=== PATIENT | female | born 1965 | race Caucasian/White ===

== ENCOUNTER 2016-11-17 21:52 | Emergency (ER) | payer OTHER ==
[~2016-11-17] VITALS: Ht 160 cm; Wt 89.0 kg
[~2016-11-17 21:52] MED LIST: OXYC-57 PO; [UNRECOGNIZED DRUG - OTHER] OPB
[2016-11-17] MEDS ORDERED: ASPIRIN 81 MG CHEW PO STA (21:58)
[2016-11-17 22:02] VITALS: Ht 160 cm; Wt 89.0 kg
--- NOTE | 2016-11-17 22:24 | DIAGNOSTIC IMAGING REPORT ---
SINGLE VIEW CHEST CLINICAL HISTORY: Atypical chest pain. FINDINGS: An AP, portable, upright chest radiograph is compared to study dated 02/08/2013. The examination is degraded by portable technique, apical lordotic positioning, and patient rotation. The cardiomediastinal silhouette is unremarkable. The lungs and pleural spaces are clear. No pneumothorax is seen. The bony thorax is grossly intact. IMPRESSION: No active disease in the chest. Electronically signed by: Pavel Fuentes M.D. 11/17/2016 10:22 PM Dictated Date/Time: 11/17/2016 10:22 PM
[2016-11-17] MEDS ORDERED: NITROGLYCERIN OINT 2% 1GM PACKET EXT ONE (22:30)
--- NOTE | 2016-11-17 22:34 | EMERGENCY ROOM VISIT NOTE ---
History Report prepared by Mally: Caitlyn Bragg Under the Supervision of: Dr. Kelly Ray M.D. First contact with patient: 21:58 Chief Complaint: CHEST PAIN Stated Complaint: CHEST PAIN Nursing Triage Summary: patient to ED via ALS for chest pain, patient reports sternal chest pain with radiation "into the head" beginning within the last hour, worsened with exertion. 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 The patient's daughter translated for the patient. The patient states that the chest pain is currently a 5/10 in severity and that the nitroglycerin she received in route to the ED helped relieve some of the pain. The patient states that the pain woke her up from sleep. The patient states that along with the chest pain she has headache and neck pain. The patient states that she also has abdominal pain, back pain, nausea but denies any vomiting. The patient states that she has a tumor in her head from melanoma that she takes medication. She denies any history of heart problems or smoking. 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 A total of 10 systems reviewed and were otherwise negative. Past Medical & Surgical Medical Problems: (1) Diabetes Surgical Problems: (1) H/O: hysterectomy Family History Diabetes mellitus FH: glaucoma Hypertension Stroke Social History Smoking Status: Never Smoker Alcohol Use: none Drug Use: none Marital Status: Housing Status: lives with family Occupation Status: unemployed Current/Historical Medications No Active Prescriptions or Reported Meds Allergies Coded Allergies: No Known Allergies (Unverified , 11/17/16) Physical Exam Vital Signs Date Time Temp Pulse Resp B/P Pulse Ox O2 Delivery O2 Flow Rate FiO2 11/18/16 01:22 37.1 72 16 110/66 90 11/18/16 00:57 72 16 90 11/18/16 00:27 75 16 95 11/17/16 23:57 84 15 97 11/17/16 23:55 85 20 110/66 98 Room Air 11/17/16 23:47 110/66 11/17/16 23:27 88 17 95 11/17/16 23:22 85 16 95 11/17/16 22:52 87 18 93 11/17/16 22:22 91 21 97 11/17/16 22:20 150/89 11/17/16 22:07 91 11/17/16 22:02 37.1 101 20 150/89 95 Room Air 11/17/16 22:02 95 Room Air 11/17/16 21:59 150/89 Physical Exam Vital signs reviewed. General: Well-appearing female, in no significant distress. HEENT: No scleral icterus, PERRLA, neck supple. Atraumatic. Cardiovascular: Regular rate and rhythm, no extra sounds. Pulmonary: Clear to auscultation bilaterally, normal work of breathing. Abdomen: Obese, soft, nontender, nondistended, positive bowel sounds. Musculoskeletal: Atraumatic, no peripheral edema. Neurologic: Patient awake alert and oriented x 3, full strength in all 4 extremities. Cranial nerves 2 through 12 grossly intact. Skin: Warm, dry, no rash Medical Decision & Procedures ER Provider Diagnostic Interpretation: X-ray results as stated below per interpretation by me and the radiologist: SINGLE VIEW CHEST CLINICAL HISTORY: Atypical chest pain. FINDINGS: An AP, portable, upright chest radiograph is compared to study dated 02/08/2013. The examination is degraded by portable technique, apical lordotic positioning, and patient rotation. The cardiomediastinal silhouette is unremarkable. The lungs and pleural spaces are clear. No pneumothorax is seen. The bony thorax is grossly intact. IMPRESSION: No active disease in the chest. Electronically signed by: Pavel Fuentes M.D. 11/17/2016 10:22 PM Dictated Date/Time: 11/17/2016 10:22 PM Laboratory Results 11/17/16 21:45 Red Blood Count 4.20, Mean Corpuscular Volume 91.2, Mean Corpuscular Hemoglobin 30.0, Mean Corpuscular Hemoglobin Concent 32.9, Mean Platelet Volume 9.6, Neutrophils (%) (Auto) 54.9, Lymphocytes (%) (Auto) 35.2, Monocytes (%) (Auto) 7.5, Eosinophils (%) (Auto) 2.0, Basophils (%) (Auto) 0.3, Neutrophils # (Auto) 4.21, Lymphocytes # (Auto) 2.69, Monocytes # (Auto) 0.57, Eosinophils # (Auto) 0.15, Basophils # (Auto) 0.02 11/17/16 21:45 Test 11/17/16 21:45 11/17/16 23:40 White Blood Count 7.65 K/uL (4.8-10.8) Red Blood Count 4.20 M/uL (4.2-5.4) Hemoglobin 12.6 g/dL (12.0-16.0) Hematocrit 38.3 % (37-47) Mean Corpuscular Volume 91.2 fL (80-100) Mean Corpuscular Hemoglobin 30.0 pg (25-34) Mean Corpuscular Hemoglobin Concent 32.9 g/dl (32-36) Platelet Count 298 K/uL (130-400) Mean Platelet Volume 9.6 fL (7.4-10.4) Neutrophils (%) (Auto) 54.9 % Lymphocytes (%) (Auto) 35.2 % Monocytes (%) (Auto) 7.5 % Eosinophils (%) (Auto) 2.0 % Basophils (%) (Auto) 0.3 % Neutrophils # (Auto) 4.21 K/uL (1.4-6.5) Lymphocytes # (Auto) 2.69 K/uL (1.2-3.4) Monocytes # (Auto) 0.57 K/uL (0.11-0.59) Eosinophils # (Auto) 0.15 K/uL (0-0.5) Basophils # (Auto) 0.02 K/uL (0-0.2) RDW Standard Deviation 42.9 fL (36.4-46.3) RDW Coefficient of Variation 13.0 % (11.5-14.5) Immature Granulocyte % (Auto) 0.1 % Immature Granulocyte # (Auto) 0.01 K/uL (0.00-0.02) Anion Gap 11.0 mmol/L (3-11) Est Creatinine Clear Calc Drug Dose 103.6 ml/min Estimated GFR () 117.4 Estimated GFR (Non- 101.3 BUN/Creatinine Ratio 24.3 (10-20) Calcium Level 9.3 mg/dl (8.5-10.1) Total Bilirubin 0.2 mg/dl (0.2-1) Direct Bilirubin < 0.1 mg/dl (0-0.2) Aspartate Amino Transf (AST/SGOT) 18 U/L (15-37) Alanine Aminotransferase (ALT/SGPT) 27 U/L (12-78) Alkaline Phosphatase 130 U/L (45-117) Total Creatine Kinase 78 U/L (26-192) Creatine Kinase MB 1.0 ng/ml (0.5-3.6) Creatine Kinase MB Ratio 1.3 (0-3.0) Total Protein 7.2 gm/dl (6.4-8.2) Albumin 3.6 gm/dl (3.4-5.0) Bedside Troponin I 0.000 ng/ml (0-0.045) Laboratory results per my review. Medications Administered Medications (Trade) Dose Ordered Sig/Sissy Route Start Time Stop Time Status Last Admin Dose Admin Nitroglycerin (Nitroglycerin 2% Oint) 1 inch NOW ONCE EXT 11/17/16 22:30 11/17/16 22:31 DC 11/17/16 22:41 1 INCH ECG Indication: chest pain Rate (beats per minute): 96 Rhythm: normal sinus Findings: other (early repolarization, diffuse J joint) Comparison ECG Date: February 08, 2013 Change: no significant change ED Course 2156: Past medical records reviewed. The patient was evaluated in room B12B. A complete history and physical examination was performed. 2157: Ordered Aspirin Chew 324 mg PO. 2229: Ordered Nitroglycerin 1 inch EXT. 0017: Upon reevaluation, the patient appeared to have improvement of her symptoms. I discussed findings with her. She verbalized agreement of the treatment plan. The patient was discharged home. Medical Decision DDx: Acute coronary syndrome, pulmonary embolus, aortic dissection, musculoskeletal pain, pneumonia, pleural effusion, pneumothorax This pt was evaluated and appeared to be in no distress. IV access was obtained and lab work was drawn. Pt was placed on the cheesemaker. She was given ASA in route, NTG paste was applied. EKG reveals J point elevation, but no change from previous. Lab work reveals 2 negative troponins. CXR is clear. Pt was feeling better. I suspect this is non cardiac CP, however the pt is referred to her PCP this week for further management. She will return to the ED for worsening of symptoms or any medical concerns. Impression Primary Impression: Substernal chest pain Scribe Attestation The scribe's documentation has been prepared under my direction and personally reviewed by me in its entirety. I confirm that the note above accurately reflects all work, treatment, procedures, and medical decision making performed by me. Departure Information Dispostion Home / Self-Care Prescriptions No Active Prescriptions or Reported Meds Referrals Gladys Pearl DO (PCP) Forms HOME CARE DOCUMENTATION FORM, IMPORTANT VISIT INFORMATION Patient Instructions My [facility] Additional Instructions Diagnosis: Substernal chest pain Please follow-up with your primary care physician within the next several days for reevaluation. Pepcid 20 mg twice daily as needed for reflux/gastritis. This can be purchased [id number]. Return to the emergency department immediately for worsening of symptoms or any medical concerns.
[2016-11-17 22:36] LABS: BASO % 0.3 %; BASO ABS # 0.02 K/uL (0-0.2); COMPLETE YES; HEMATOCRIT 38.3 % (37-47); IG% 0.1 %; LYMPH % 35.2 %; LYMPH ABS # 2.69 K/uL (1.2-3.4); MEAN CELL VOLUME 91.2 fL (80-100); MEAN CORPUSCULAR HGB CONC 32.9 g/dl (32-36); MEAN PLATELET VOLUME 9.6 fL (7.4-10.4); MONO % 7.5 %; NEUT % 54.9 %; PLATELET COUNT 298 K/uL (130-400); WHITE BLOOD COUNT 7.65 K/uL (4.8-10.8)
[2016-11-17 23:02] LABS: ALT/SGPT 27 U/L (12-78); BLOOD UREA NITROGEN 17 mg/dl (7-18); BUN/CREATININE RATIO 24.3 (10-20); CALCIUM 9.3 mg/dl (8.5-10.1); CARBON DIOXIDE 25 mmol/L (21-32); CHLORIDE 108 mmol/L (98-107); CREATININE 0.68 mg/dl (0.60-1.20); GLUCOSE 113 mg/dl (70-99); SODIUM 144 mmol/L (136-145)
[2016-11-17 23:06] LABS: ALKALINE PHOSPHATASE 130 U/L (45-117); AST/SGOT 18 U/L (15-37); CKMB/CK RATIO 1.3 (0-3.0)
[2016-11-18 01:22] VITALS: BP 110/66; PULSE 72; TEMP 37.1; O2SAT 90
== END 2016-11-18 01:23 | disposition home or self-care (01) ==
LOC: EDBD 21:52 → C.EDB 21:53
DX: R07.2 Precordial pain (principal); E11.9 Type 2 diabetes mellitus without complications; Z83.3 Family history of diabetes mellitus; Z82.49 Family history of ischemic heart disease and other diseases of the circulatory system

== ENCOUNTER → 2017-07-02 | Outpatient (CLI) | payer OTHER ==
--- NOTE | 2017-07-03 06:18 | SPLIT NIGHT TECHNICIAN REPORT ---
[facility] Split Night Polysomnogram - Legal Service Specialist Report Study date: 07/02/2017 Referring Physician: Radha Antoine Name: MIKEY NOVAK Legal Service Specialist: DEYSI Dozier. Date of : 1965 Height: 52 years, Height 5' 2.2" Sex: Female Weight: 190 lbs Age: 52 BMI: Medications: 34.52 PANTOPRAZOLE 40 MG, PROPRANOLOL 80 MG, RIBOFLAVIN 400 MG, MELATONIN 5 MG, SUMATRIPTAN 25 MG, MAGNESIUM OXIDE 400 MG, ALBUTEROL, IBUPROFEN 400 MG, TRAMADOL 50 MG, ATORVASTATIN 10 MG, SULLINDAC 150 MG, NAPROXEN 550 MG, LIDOCAINE 5% OINT, TOBRAMYCIN 0.3% SOLN, TIMOLOL 0.25%, ACETAMINOPHEN 500 MG/5 ML Patient History 52 yr-old female here for a baseline/split study. She has a history of snoring, witnessed apneas, daytime sleepiness, and waking up with a gasping sensation. Her [place] scale is 12. The test was started on room air. ETCO2 testing is included in this study. Room 6 Parameters Monitored NPSG: E1-M2, E2-M1, Fp1-M2, Fp2-M1, F3-M2, F4-M2, F4-M1, C3-M2, C4-M2, C4-M1, O1-M2, O2-M2, O2-M1, T3-M2, T4-M1, P3-M2, P4-M1, CHIN1, CHIN2, HR, EKG, Legs, PFLOW, SNOR, FLOW, CFLOW, Tidal Volume, THOR, ABDO, SpO2, PLTH, CPRESS, ETCO2 Wave, ETCO2, pH SLEEP SUMMARY DATA DIAGNOSTIC TREATMENT Lights Out: 9:35:34 PM 12:40:04 AM Lights On: 12:27:04 AM 5:30:04 AM Total Recording Time (TRT): 171.5 min. 290.0 min. Total Sleep Time (TST): 127.5 min. 280.5 min. NREM Time: 100.5 min. 190.5 min. REM Time: 27.0 min. 90.0 min. Sleep Period Time (SPT): 147.5 min. 289.5 min. Sleep Efficiency (SE): 74 % 97 % Sleep Latency: 24.0 min. 0.5 min. Arousal Index: 49.4 5.8 PAP Treatment Levels: 4, 6, 8 * Optimal Pressure(s) SLEEP STAGING DATA DIAGNOSTIC TREATMENT Duration (min) TST % Duration (min) TST % Stage Wake: 44.0 min. -- 9.5 min. -- WASO: 20.0 min. -- 9.0 min. -- NREM: 100.5 min. 79 % 190.5 min. 68 % Stage N1: 25.5 min. 20 % 17.5 min. 6 % Stage N2: 65.5 min. 51 % 165.5 min. 59 % Stage N3: 9.5 min. 7 % 7.5 min. 3 % REM: 27.0 min. 21 % 90.0 min. 32 % POSITIONAL DATA Event Count Index Event Count Index Supine: 8 107 35 9.7 Supine NREM: 8 106.7 34 13.2 Supine REM: N/A N/A 1 1 Non-Supine: 182 88.3 9 7.6 Non-Supine NREM: 143 88.8 4 6.0 Non-Supine REM: 39 86.7 5 9.8 AROUSAL SUMMARY DATA: Event Count Index Event Count Index Apnea Arousals: 78 65.4 11 3.0 Hypopnea Arousals: 7 3.3 1 0.2 Snore Arousals: 4 1.9 1 0.2 PLM Arousals: 2 0.9 0 0.0 Non-Specific Arousals: 6 2.8 7 1.5 Total Arousals: 105 49.4 27 5.8 MYOCLONUS (PLM) Event Count Index Event Count Index PLM: 12 5.6 13 2.8 PLM AROUSAL: 2 0.9 0 0.0 PLM W/O AROUSAL 12 5.6 13 2.8 PLM W/RESP EVENT 2 0.0 0 0.0 MYOCLONUS (PLM) Event Count Index Event Count Index LM: 9 75.8 35 7.5 LM AROUSAL: 9 4.2 6 1.3 LM W/O AROUSAL LM W/RESP EVENT LM NON SPECIFIC 47 22.1 39 8.3 HEART RATE DATA DIAGNOSTIC TREATMENT Sleep (bpm): 77 76 REM (bpm): 82 92 NREM (bpm): 90 92 Tachycardia Count: 0 0 Tachycardia Duration: 0.00 0 Bradycardia Count: 0 0 Bradycardia Duration: 0.00 0 DIAGNOSTIC PORTION TREATMENT PORTION RESPIRATORY DATA Event Count Index Event Count Index AHI: -- 88.9 -- 9.2 RDI: -- 89.4 -- 9 Obstructive Apnea: 128 60.2 8 1.7 Central Apnea: 10 4.7 6 1.3 Mixed Apnea: 1 0.5 0 0.0 Hypopnea: 50 23.5 29 6.2 RERA: 1 0.5 1 0.2 Total Apneas: 139 65.4 14 3.0 RESPIRATORY DATA REM NREM SLEEP REM NREM SLEEP Supine Position: Obstructive Apneas: N/A 6 6 0 7 7 Central Apneas: N/A 0 0 0 6 6 Mixed Apneas: N/A 0 0 0 0 0 Hypopneas: N/A 2 2 1 20 21 RERA N/A 0 0 0 1 1 Total Supine Events: N/A 8 8 1 34 35 Supine AHI: N/A 106.7 107 1 13.2 9.7 Supine RDI: N/A 106.7 106.7 1.0 13.6 10.0 REM NREM SLEEP REM NREM SLEEP Non-Supine Position: Obstructive Apneas: 32 90 122 0 1 1 Central Apneas: 0 10 10 0 0 0 Mixed Apneas: 0 1 1 0 0 0 Hypopneas: 7 41 48 5 3 8 RERA 0 1 1 0 0 0 Total Supine Events: 39 143 182 5 4 9 Supine AHI: 86.7 88.8 88.3 9.8 6.0 7.6 Supine RDI: 86.7 89.4 88.8 9.8 6.0 7.6 OXYGEN DESTAURATION DATA: Event Count Index Event Count Index REM Desaturations: 33 73.3 9 6.0 NREM Desaturations: 150 89.6 48 15.1 SNORE DATA DIAGNOSTIC TREATMENT Snore Time: 17.9 12:40:34 AM Snore TST%: 10 3 Snore Arousal Count: 4 1 Snore Arousal Index: 1.9 0.2 Desaturation Event Summary: Minimum %SpO2 Event Count Mean/Min/Max Duration(sec.) Desaturation Index % Time In Bed > 90 260 21.1 / 6.0 / 59.0 44.8 75.6 86 - 90 20 21.8 / 8.0 / 58.3 15.7 16.6 81 - 85 1 52.5 / 52.5 / 52.5 3.3 3.9 76 - 80 0 N/A 0.0 1.9 71 - 75 0 N/A 0.0 0.9 66 - 70 0 N/A 0.0 0.7 61 - 65 0 N/A 0.0 0.2 56 - 60 0 N/A 0.0 0.0 51 - 55 0 N/A 0.0 0.0 < 50 0 N/A 0.0 0.0 OXYGEN SATURATION DATA DIAGNOSTIC TREATMENT SpO2 Mean Sleep: 88 % 92 % SpO2 Mean REM: 82 % 92 % SpO2 Mean NREM: 90 % 92 % SpO2 Minimum Sleep: 61 % 82 % SpO2 Minimum REM: 61 % 85 % SpO2 Minimum NREM: 71 % 82 % Time Below 90% (TST): 54.3 13.0 Time Below 88% (TST): 42.7 2.8 Total REM NREM Awake <50% 0.0 min. 0.0 min. 0.0 min. 0.0 min. 51 - 60% 0.0 min. 0.0 min. 0.0 min. 0.0 min. 61 - 70% 4.3 min. 4.0 min. 0.0 min. 0.3 min. 71 - 80% 13.2 min. 8.0 min. 4.9 min. 0.2 min. 81 - 90% 94.8 min. 15.6 min. 75.2 min. 4.0 min. 91 - 100% 348.4 min. 89.3 min. 210.2 min. 48.9 min. Average 91 90 91 94 Minimum SpO2 61 61 71 70 Desaturation Event Index 34.1 21.5 40.8 25.8 # Desat. Events below 89% 209 34 162 13 Time(%) with Saturation below 89% 12.3 4.2 7.5 0.5 Time(min.) with Saturation below 89% 56.5 19.3 34.8 2.4 Recording Legal Service Specialist Comments: Ms. Novak slept in the right and supine positions. A few PVCs were noted. No PLMs noted. No bruxism noted. Snoring was noted and scored as a 3 on a scale of 1 through 5. (0=no snoring, 5=snoring loud enough to be heard through a closed door or down the jaramillo way) At 12:39, she met specific Split-Night criteria during the diagnostic portion of this study. CPAP was initiated at +4 CMH2O and up-titrated to a evel of +8 CMH2O Cflex 2, which nearly eliminated all respiratory events and snoring. A Mirage FX Soft edge nasal mask size small from [employer] was used during titration She awoke to use the restroom one time during the night. Ms. Novak stated that she slept a little better than usual. The final report will be interpreted and signed by a sleep physician. The completed physician report will then be placed in the patient medical record. Therapy Event: Therapy (cm H20) 0 4 6 8 Total Time at Pressure (min.) 171.5 11.5 56.4 222.1 TST at Pressure (min.) 127.5 7.0 55.9 217.6 # Periods 1 1 1 1 Sleep Onset (min.) 24.0 0.5 0.0 0.0 REM Onset (min.) 104.5 N/A 31.0 0.0 Sleep Efficiency % 74 60 99 98 Wakefulness (%) 25.7 39.2 0.9 2.0 Wakefulness (min.) 44.0 4.5 0.5 4.5 NREM 1 (%) 14.9 60.8 0.9 4.5 NREM 1 (min.) 25.5 7.0 0.5 10.0 NREM 2 (%) 38.2 0.0 48.7 62.1 NREM 2 (min.) 65.5 0.0 27.5 138.0 NREM 3 (%) 5.5 0.0 4.4 2.3 NREM 3 (min.) 9.5 0.0 2.5 5.0 REM (%) 15.7 0.0 45.0 29.1 REM (min.) 27.0 0.0 25.4 64.6 # Arousals 105 12 1 14 Arousal Index 49.4 103.2 1.1 3.9 # Snore 551 17 90 298 Snore Index 259.3 146.3 96.5 82.2 AHI 88.9 111.8 23.6 2.2 AHI Supine 106.7 111.8 89.8 1.9 AHI Non-Supine 88.3 N/A 9.1 4.8 NREM AHI 89.6 111.8 33.4 2.7 REM AHI 86.7 N/A 11.8 0.9 RDI 89.4 111.8 24.7 2.2 # Obstructive 128 7 1 0 # Central Ap 10 6 0 0 # Mixed 1 0 0 0 # Hypopneas 50 0 21 8 RERAS 1 0 1 0 Total Respiratory Events 190 13 23 8 Time Below SpO2 89.00% (min.) 47.9 2.2 2.8 1.1 Mean NREM SpO2 (%) 90 91 92 92 Mean REM SpO2 (%) 82 N/A 91 92 Mean Sleep SpO2 (%) 88 91 91 92 Min NREM SpO2 (%) 71 82 86 87 Min REM SpO2 (%) 61 N/A 86 85 Position Supine (min.) 4.5 7.0 10.0 192.7 Position Non-supine (min.) 123.0 0.0 45.9 24.9 LM Index Sleep 81.4 51.6 6.4 9.9 LM Index NREM 80.0 51.6 7.9 10.2 LM Index REM 86.7 N/A 4.7 9.3 Mean Heart Rate (bpm) 77 70 76 76 Min Heart Rate (bpm) 59 64 66 63 CPAP REPORT Therapy Detail Time / Page # Comment CPAP 4 cm H2O Nasal Mask Flex Pressure Relief Humidifier on 12:39:32 AM / pg. 374 SHE HAS HAD OVER 2 HOURS AND OF SLEEP AND HER AHI IS ABOVE 15 (PER DOCTOR'S ORDER). CPAP 6 cm H2O Nasal Mask Flex Pressure Relief Humidifier on 12:51:32 AM / pg. 398 INCREASED FOR APNEAS CPAP 8 cm H2O Nasal Mask Flex Pressure Relief Humidifier on 1:47:59 AM / pg. 511 INCREASED FOR APNEAS AND HYPOPNEAS
--- NOTE | 2017-07-06 12:13 | POLYSOMNOGRAPH REPORT ---
CLINICAL DATA: 52-year-old female with BMI of 34.5 referred by Radha Antoine for a split night sleep study with a history of snoring, witnessed apneas, daytime sleepiness, and awakening with gasping sensation. Her [place] sleepiness score is 12/24. SLEEP ARCHITECTURE: For the diagnostic portion of the study, sleep period time was 147.5 minutes. Total sleep time was 127.5 minutes divided between 100.5 minutes of non-REM sleep and 27 minutes of REM sleep. Sleep onset latency was 24 minutes. Sleep efficiency was 74%. Sleep consisted of stage N1 20%, stage N2 51%, stage N3 7%, and REM 21%. For the treatment portion of the study, sleep period time was 289.5 minutes. Total sleep time was 280.5 minutes divided between 190.5 minutes of non-REM sleep and 90 minutes of REM sleep. Sleep latency was 0.5 minutes. Sleep efficiency was 97%. Sleep consisted of stage N1 6%, stage N2 59%, stage N3 3%, and REM 32%. AROUSAL DATA: Prior to treatment, 105 arousals were recorded for an index of 49.4 per hour. During treatment, 27 arousals were recorded for an index of 5.8 per hour. PLM DATA: Prior to treatment, 47 limb movements during sleep were noted for an index of 22.1 per hour. During treatment, 39 limb movements during sleep were noted for an index of 8.3 per hour. EKG: Heart rates ranged from 76-92 beats per minute. Occasional PVCs were noted. RESPIRATORY DATA: Prior to treatment, very severe sleep apnea was documented. The AHI was 89. There were 128 obstructive, 10 central, and 1 mixed apneic episode. There were 50 hypopneic episodes. The mean AHI during treatment was 9.2. There were 8 obstructive and 6 central apneic episodes and 29 hypopneic episodes during treatment. OXIMETRY DATA: Prior to treatment, severe nocturnal hypoxemia was seen. Oxygen rylie was 61% during REM. The mean saturation for the treatment was 92%. FAST FOOD SERVER'S COMMENTS AND TREATMENT SUMMARY: The patient slept in the right and supine positions. Snoring was moderate, rated 3 on a scale of 1 through 5. At 12:39 a.m., she met split night criteria. A Mirage FX soft edge nasal mask size small from [employer] was used. She was placed on CPAP and titrated up to her final pressure setting of 8 cm water pressure, C-Flex setting #2. At her final pressure setting, the patient slept for 217.6 minutes with an AHI of 2.2. IMPRESSION: Very severe sleep apnea/hypopnea with an AHI of 89 corrected with CPAP 8 cm of water pressure. C-Flex setting #2, Mirage FX soft edge nasal mask size small from [employer] with elimination of apnea and hypoxemia. RECOMMENDATIONS: The patient should be started on the above noted treatment regimen and seen back in followup within 90 days to document efficacy and compliance. PAM
== END | disposition home or self-care (01) ==
LOC: C.NEUR 21:00
PROVIDERS: ATTEND Nurse Practitioner Family
DX: G47.30 Sleep apnea, unspecified (principal)

== ENCOUNTER 2017-07-08 16:14 | Inpatient (IN) | payer OTHER ==
[~2017-07-08] VITALS: Ht 160 cm; Wt 81.7 kg
[2017-07-08] MEDS ORDERED: PANT40TA PO (16:55)
[2017-07-08] MEDS ORDERED: SUMA25TA12 PO (16:55)
[2017-07-08] MEDS ORDERED: INDSR/60 PO (16:55)
[2017-07-08] MEDS ORDERED: PROP80CA PO (16:55)
[2017-07-08] MEDS ORDERED: ATOR10TA82 PO (16:55)
[2017-07-08] MEDS ORDERED: ALBUT/IPRATROP 3MG/0.5MG NEB 3 ML VIAL INH STA (16:58)
[2017-07-08 17:30] LABS: BASO % 0.4 %; BASO ABS # 0.02 K/uL (0-0.2); COMPLETE YES; EOS % 2.7 %; HEMATOCRIT 39.7 % (37-47); IG% 0.2 %; LYMPH % 20.1 %; MEAN CELL VOLUME 91.5 fL (80-100); MEAN CORPUSCULAR HEMOGLOBIN 29.7 pg (25-34); MEAN CORPUSCULAR HGB CONC 32.5 g/dl (32-36); MEAN PLATELET VOLUME 9.5 fL (7.4-10.4); MONO % 7.8 %; NEUT % 68.8 %; PLATELET COUNT 259 K/uL (130-400); RED BLOOD COUNT 4.34 M/uL (4.2-5.4); WHITE BLOOD COUNT 5.48 K/uL (4.8-10.8)
--- NOTE | 2017-07-08 17:30 | EMERGENCY ROOM VISIT NOTE ---
History First contact with patient: 16:23 Chief Complaint: COUGH Stated Complaint: CHEST PAIN/COUGH/FEVER Nursing Triage Summary: c/o cough, upper chest pain and fever since yesterday. difficulty taking a deep breath. Naprosyn last night. denies any meds for pain today History of Present Illness The patient is a 52 year old female who presents to the Emergency Room with complaints of cough, chest discomfort and shortness of breath which began yesterday. The patient reports she has had a dry cough, pain in her upper chest described as a tightness, and difficulty taking a deep breath beginning yesterday evening. She took Naprosyn without relief. She reports she recently flew home from [place]. 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 She has been using her albuterol inhaler without relief. She is not a smoker. She denies use of control pills or hormone replacement. She does report she had some leg swelling while in [place]. She denies any history of PE or DVT. She does report a history of asthma. She denies any history of cardiac disease. Review of Systems A complete 10 point review of systems was reviewed with the patient with pertinent positives and negatives as per history of present illness. All else were negative. Past Medical/Surgical History Medical Problems: (1) Diabetes (2) Dyslipidemia (3) GERD (gastroesophageal reflux disease) (4) Meningioma (5) Migraine headache Surgical Problems: (1) Status post hysterectomy (2) Status post temporal artery biopsy Family History Diabetes mellitus FH: glaucoma Hypertension Stroke Social History Smoking Status: Never Smoker Alcohol Use: none Drug Use: none Marital Status: Housing Status: lives with family Occupation Status: unemployed Current/Historical Medications Scheduled Atorvastatin (Lipitor), 10 MG PO DAILY Pantoprazole (Protonix), 40 MG PO DAILY Propranolol Hcl (Propranolol Hcl Er), 80 MG PO DAILY Scheduled PRN Sumatriptan Succinate (Imitrex), 50 MG PO UD PRN for Migraine Physical Exam Vital Signs Date Time Temp Pulse Resp B/P (MAP) Pulse Ox O2 Delivery O2 Flow Rate FiO2 07/08/17 20:47 84 20 133/72 95 Room Air 07/08/17 19:26 80 20 129/68 95 Room Air 07/08/17 16:23 97 Room Air 07/08/17 16:19 37.0 75 20 124/82 97 Room Air Physical Exam VITALS: Vitals are noted on the nurse's note and reviewed by myself. Vital signs stable. GENERAL: This is a 52-year-old female, in no acute distress, nondiaphoretic, well-developed well-nourished. SKIN: The skin was without rashes. EARS: External auditory canals clear, tympanic membranes pearly dawkins without erythema or effusion bilaterally. EYES: Pupils equal round and reactive to light and accommodation. NOSE: Patent, turbinates without inflammation or discharge. MOUTH: Mucous membranes moist. Tonsils are not enlarged. Pharynx without erythema or exudate. NECK: Supple without nuchal rigidity. No lymphadenopathy. HEART: Regular rate and rhythm without murmurs gallops or rubs. LUNGS: Mild expiratory wheezing. Lungs otherwise clear. No retractions or accessory muscle use. NEURO: Patient was alert and oriented to person place and time. Medical Decision & Procedures ER Provider Diagnostic Interpretation: CHEST 2 VIEWS ROUTINE FINDINGS: Cardiomediastinal silhouette normal. Lungs and pleural spaces clear. Osseous structures normal. Upper abdomen normal. IMPRESSION: 1. No acute cardiopulmonary disease. (CHEST FOR PE) ANGIO WITH IMPRESSION: 1. A single filling defect is evident in a segmental artery to the right upper lobe, which is convincing for a pulmonary embolus. However, no additional emboli are evident. This is a very limited embolus burden. Short-term follow-up CTA could be considered. 2. Prominent mediastinal lymph nodes which are borderline pathologically enlarged. These may be reactive. Follow-up if clinically indicated. Laboratory Results 07/08/17 17:15 Red Blood Count 4.34, Mean Corpuscular Volume 91.5, Mean Corpuscular Hemoglobin 29.7, Mean Corpuscular Hemoglobin Concent 32.5, Mean Platelet Volume 9.5, Neutrophils (%) (Auto) 68.8, Lymphocytes (%) (Auto) 20.1, Monocytes (%) (Auto) 7.8, Eosinophils (%) (Auto) 2.7, Basophils (%) (Auto) 0.4, Neutrophils # (Auto) 3.77, Lymphocytes # (Auto) 1.10, Monocytes # (Auto) 0.43, Eosinophils # (Auto) 0.15, Basophils # (Auto) 0.02 07/08/17 17:15 Test 07/08/17 17:15 07/08/17 17:25 White Blood Count 5.48 K/uL (4.8-10.8) Red Blood Count 4.34 M/uL (4.2-5.4) Hemoglobin 12.9 g/dL (12.0-16.0) Hematocrit 39.7 % (37-47) Mean Corpuscular Volume 91.5 fL (80-100) Mean Corpuscular Hemoglobin 29.7 pg (25-34) Mean Corpuscular Hemoglobin Concent 32.5 g/dl (32-36) Platelet Count 259 K/uL (130-400) Mean Platelet Volume 9.5 fL (7.4-10.4) Neutrophils (%) (Auto) 68.8 % Lymphocytes (%) (Auto) 20.1 % Monocytes (%) (Auto) 7.8 % Eosinophils (%) (Auto) 2.7 % Basophils (%) (Auto) 0.4 % Neutrophils # (Auto) 3.77 K/uL (1.4-6.5) Lymphocytes # (Auto) 1.10 K/uL (1.2-3.4) Monocytes # (Auto) 0.43 K/uL (0.11-0.59) Eosinophils # (Auto) 0.15 K/uL (0-0.5) Basophils # (Auto) 0.02 K/uL (0-0.2) RDW Standard Deviation 44.3 fL (36.4-46.3) RDW Coefficient of Variation 13.2 % (11.5-14.5) Immature Granulocyte % (Auto) 0.2 % Immature Granulocyte # (Auto) 0.01 K/uL (0.00-0.02) D-Dimer 540 ug/L FEU (0-500) Anion Gap 6.0 mmol/L (3-11) Est Creatinine Clear Calc Drug Dose 79.1 ml/min Estimated GFR () 90.0 Estimated GFR (Non- 77.7 BUN/Creatinine Ratio 13.9 (10-20) Calcium Level 9.0 mg/dl (8.5-10.1) Total Bilirubin 0.2 mg/dl (0.2-1) Aspartate Amino Transf (AST/SGOT) 20 U/L (15-37) Alanine Aminotransferase (ALT/SGPT) 28 U/L (12-78) Alkaline Phosphatase 153 U/L (45-117) Troponin I < 0.015 ng/ml (0-0.045) Total Protein 7.7 gm/dl (6.4-8.2) Albumin 3.8 gm/dl (3.4-5.0) Globulin 3.9 gm/dl (2.5-4.0) Albumin/Globulin Ratio 1.0 (0.9-2) Influenza Type A Antigen Neg for Influ A (NEG) Influenza Type B Antigen Neg for Influ B (NEG) Medications Administered Medications (Trade) Dose Ordered Sig/Sissy Route Start Time Stop Time Status Last Admin Dose Admin Albuterol/ Ipratropium (Duoneb) 3 ml NOW STAT INH 07/08/17 16:58 07/08/17 17:00 DC 07/08/17 17:24 3 ML Methylprednisolone Sodium Succinate (Solu-Medrol IV) 125 mg NOW STAT IV 07/08/17 18:36 07/08/17 18:38 DC 07/08/17 18:54 125 MG ED Course The patient was evaluated as above. Labs were drawn and IV access was obtained. Patient was medicated with a DuoNeb treatment. Chest x-ray was performed and read by radiology as above. Patient was reevaluated and findings were discussed. Solu-Medrol was ordered. CTA of the chest was ordered. Case was discussed with the [facility] hospitalist, Dr. Francisco. They agreed to evaluate the patient for admission. Medical Decision Differential diagnosis includes upper respiratory infection, pneumonia, pulmonary embolism, pleural effusion, asthma exacerbation, COPD, among others. The patient is a 52-year-old female who presents today complaining of chest tightness and difficulty breathing. Patient did have a recent flight from [place]. Labs revealed no leukocytosis or concerning electrolyte abnormalities. Troponin was not elevated. Influenza testing was negative. D- dimer was found to be mildly elevated. CT chest did show a filling defect consistent with pulmonary embolism. Patient did have an inciting event of the recent flight. [facility] the [facility] for [facility]. Medication Reconcilliation Current Medication List: was personally reviewed by [place] Blood Pressure Screening Patient's blood pressure: Normal blood pressure Impression Primary Impression: Pulmonary embolism Departure Information Referrals Patrizia Lewis PA-C (PCP) Patient Instructions My [facility] Problem Qualifiers Primary Impression: Pulmonary embolism Pulmonary embolism type: other Chronicity: acute Acute cor pulmonale presence: without acute cor pulmonale Qualified Codes: I26.99 - Other pulmonary embolism without acute cor pulmonale
[2017-07-08 17:46] LABS: ALT/SGPT 28 U/L (12-78); BLOOD UREA NITROGEN 12 mg/dl (7-18); BUN/CREATININE RATIO 13.9 (10-20); CARBON DIOXIDE 28 mmol/L (21-32); CHLORIDE 106 mmol/L (98-107); CREATININE 0.86 mg/dl (0.60-1.20); GLUCOSE 94 mg/dl (70-99); POTASSIUM 3.7 mmol/L (3.5-5.1); SODIUM 140 mmol/L (136-145)
[2017-07-08 17:51] LABS: ALKALINE PHOSPHATASE 153 U/L (45-117); AST/SGOT 20 U/L (15-37)
--- NOTE | 2017-07-08 17:56 | DIAGNOSTIC IMAGING REPORT ---
CHEST 2 VIEWS ROUTINE CLINICAL HISTORY: 52 years-old Female presenting with cough, chest discomfort. TECHNIQUE: PA and lateral views of the chest were obtained. COMPARISON: 11/17/2016. FINDINGS: Cardiomediastinal silhouette normal. Lungs and pleural spaces clear. Osseous structures normal. Upper abdomen normal. IMPRESSION: 1. No acute cardiopulmonary disease. Electronically signed by: Jose C Chavez M.D. 07/08/2017 5:55 PM Dictated Date/Time: 07/08/2017 5:54 PM
[2017-07-08] MEDS ORDERED: METHYLPREDNISOLONE 125 MG VIAL IV STA (18:36)
[2017-07-08] MEDS ORDERED: HYDROCODONE/HOMATROPINE SYRUP 5MG/1.5MG 5ML UDP PO STA (18:36)
[2017-07-08] MEDS ORDERED: OPTIRAY 320 IV PRN (18:45)
--- NOTE | 2017-07-08 19:20 | DIAGNOSTIC IMAGING REPORT ---
(CHEST FOR PE) ANGIO WITH CLINICAL HISTORY: 52 years-old Female presenting with ^chest pain, sob, elevated dimer. TECHNIQUE: Multidetector CT angiography of the chest was performed after administration of intravenous contrast. 3-D volumetric and/or maximum intensity projection (MIP) images were subsequently reconstructed for review. IV contrast: 83 mL of Optiray 320. A dose lowering technique was used consistent with the principles of ALARA (as low as reasonably achievable). COMPARISON: Chest x-ray performed earlier the same day. CT DOSE (mGy.cm): The estimated cumulative dose is 430.52 mGy.cm. FINDINGS: Manager Mining topogram: Unremarkable. Pulmonary vasculature: The study is adequate for assessment of the pulmonary vascular tree. A single filling defect is evident in a segmental artery to the right upper lobe. This is not felt to be artifactual given the opacification of the segmental branch both proximal and distal to the filling defect. However, no additional filling defects are evident. Main pulmonary artery is not enlarged. No flattening of the interventricular septum. No intracardiac intracardiac filling defect. No reflux of contrast into the hepatic veins. Remaining chest: On soft tissue windows, normal thyroid and thoracic inlet. Prominent mediastinal lymph nodes measuring up to 10 mm in the short axis in the paratracheal and subcarinal regions. Smaller prominent bilateral hilar lymph nodes also noted. Normal aorta. Normal heart size. No pericardial or pleural effusion. Indeterminate subcentimeter hypodensity in the anterior medial left hepatic lobe, possibly hepatic cyst or or hemangioma. On lung windows, minimal dependent changes likely atelectasis. Airways patent. On bone windows, normal osseous structures. IMPRESSION: 1. A single filling defect is evident in a segmental artery to the right upper lobe, which is convincing for a pulmonary embolus. However, no additional emboli are evident. This is a very limited embolus burden. Short-term follow-up CTA could be considered. 2. Prominent mediastinal lymph nodes which are borderline pathologically enlarged. These may be reactive. Follow-up if clinically indicated. Electronically signed by: Jose C Chavez M.D. 07/08/2017 7:19 PM Dictated Date/Time: 07/08/2017 7:12 PM
--- NOTE | 2017-07-08 20:52 | History and Physical ---
History & Physical Date & Time of Service: Jul 08, 2017 at 20:52 . Chief Complaint: chest pain, shortness of breath . Primary Care Physician: Patrizia Lewis PA-C . History of Present Illness Source: patient, clinic records, hospital records, other (History obtained with assistance of translation service.) 52 YO female followed by Patrizia Lewis PA-C. History of GERD, dyslipidemia, and other problems noted below. Recently traveled from [place] by air. Yesterday developed midsternal chest pressure, worse with coughing or deep inspiration. Chest pain does not radiate. Feels SOB. Nonproductive cough; no hemoptysis. Experiencing sweats and possible low grade temp. Has mild pain in bilateral lower extremities. No history of cardiac disease. No history of thromboembolic disease. . Past Medical/Surgical History Chronic and Resolved Medical Problems: (1) Dyslipidemia Status: Chronic (2) GERD (gastroesophageal reflux disease) Status: Chronic (3) Meningioma Status: Chronic (4) Migraine headache Status: Chronic Surgical Problems: (1) Status post hysterectomy Status: Chronic (2) Status post temporal artery biopsy Permanent Comment: 01/11/16 negative for arteritis Status: Chronic . Family History Diabetes mellitus FH: glaucoma Hypertension Stroke Social History Smoking Status: Never Smoker Alcohol Use: none Drug Use: none Marital Status: Occupational Status: unemployed Allergies Coded Allergies: No Known Allergies (Unverified , 07/08/17) Home Medications Scheduled Atorvastatin (Lipitor), 10 MG PO DAILY Pantoprazole (Protonix), 40 MG PO DAILY Propranolol Hcl (Propranolol Hcl Er), 80 MG PO DAILY Scheduled PRN Sumatriptan Succinate (Imitrex), 50 MG PO UD PRN for Migraine Review of Systems Constitutional: + sweats, + problem reported (possible low grade temp) Eyes: + eye pain (right eye) ENT: No nasal symptoms Respiratory: + problem reported (per HPI) Cardiovascular: + problem reported (per HPI) Abdomen: + problem reported (GERD), No nausea, No vomiting, No diarrhea, No GI bleeding Genitourinary - Female: No dysuria, No hematuria Neurologic: + problem reported (migraine headaches) Endocrine: No excessive thirst, No excessive urination Hematologic / Lymphatic: No abnormal bleeding/bruising Integumentary: No rash Physical Exam Vital Signs Date Time Temp Pulse Resp B/P (MAP) Pulse Ox O2 Delivery O2 Flow Rate FiO2 12/20/17 19:26 80 20 129/68 95 Room Air 07/08/17 16:23 97 Room Air 07/08/17 16:19 37.0 75 20 124/82 97 Room Air General Appearance: WD/WN, + mild distress Head: normocephalic, atraumatic Eyes: normal inspection, PERRL, EOMI, sclerae normal ENT: normal ENT inspection, hearing grossly normal, pharynx normal Neck: supple, no adenopathy, thyroid normal, trachea midline Respiratory/Chest: no respiratory distress, no accessory muscle use, + pertinent finding (mild wheezing, occasional cough) Cardiovascular: regular rate, rhythm, no edema, no gallop, no JVD, no murmur Abdomen/GI: normal bowel sounds, non tender, soft, no organomegaly, no pulsatile mass Extremities/Musculoskelatal: normal inspection, normal capillary refill, no pedal edema, + pertinent finding (mild calf tenderness) Neurologic/Psych: vp integrity II-XII nml as tested (PERRL, EOMI, no facial palsy, no dysarthria), no motor/sensory deficits (grossly intact), alert, oriented x 3 Skin: normal color, no rash, + diaphoresis Lymphatic: no adenopathy (cervical) Diagnostics Laboratory Results Results Past 24 Hours Test 07/08/17 17:15 07/08/17 17:25 Range/Units White Blood Count 5.48 4.8-10.8 K/uL Red Blood Count 4.34 4.2-5.4 M/uL Hemoglobin 12.9 12.0-16.0 g/dL Hematocrit 39.7 37-47 % Mean Corpuscular Volume 91.5 80-100 fL Mean Corpuscular Hemoglobin 29.7 25-34 pg Mean Corpuscular Hemoglobin Concent 32.5 32-36 g/dl Platelet Count 259 130-400 K/uL Mean Platelet Volume 9.5 7.4-10.4 fL Neutrophils (%) (Auto) 68.8 % Lymphocytes (%) (Auto) 20.1 % Monocytes (%) (Auto) 7.8 % Eosinophils (%) (Auto) 2.7 % Basophils (%) (Auto) 0.4 % Neutrophils # (Auto) 3.77 1.4-6.5 K/uL Lymphocytes # (Auto) 1.10 1.2-3.4 K/uL Monocytes # (Auto) 0.43 0.11-0.59 K/uL Eosinophils # (Auto) 0.15 0-0.5 K/uL Basophils # (Auto) 0.02 0-0.2 K/uL RDW Standard Deviation 44.3 36.4-46.3 fL RDW Coefficient of Variation 13.2 11.5-14.5 % Immature Granulocyte % (Auto) 0.2 % Immature Granulocyte # (Auto) 0.01 0.00-0.02 K/uL D-Dimer 540 0-500 ug/L FEU Sodium Level 140 136-145 mmol/L Potassium Level 3.7 3.5-5.1 mmol/L Chloride Level 106 98-107 mmol/L Carbon Dioxide Level 28 21-32 mmol/L Anion Gap 6.0 3-11 mmol/L Blood Urea Nitrogen 12 7-18 mg/dl Creatinine 0.86 0.60-1.20 mg/dl Est Creatinine Clear Calc Drug Dose 79.1 ml/min Estimated GFR () 90.0 Estimated GFR (Non- 77.7 BUN/Creatinine Ratio 13.9 10-20 Random Glucose 94 70-99 mg/dl Calcium Level 9.0 8.5-10.1 mg/dl Total Bilirubin 0.2 0.2-1 mg/dl Aspartate Amino Transf (AST/SGOT) 20 15-37 U/L Alanine Aminotransferase (ALT/SGPT) 28 12-78 U/L Alkaline Phosphatase 153 45-117 U/L Troponin I < 0.015 0-0.045 ng/ml Total Protein 7.7 6.4-8.2 gm/dl Albumin 3.8 3.4-5.0 gm/dl Globulin 3.9 2.5-4.0 gm/dl Albumin/Globulin Ratio 1.0 0.9-2 Influenza Type A Antigen Neg for Influ A NEG Influenza Type B Antigen Neg for Influ B NEG Diagnostic Radiology CHEST 2 VIEWS ROUTINE FINDINGS: Cardiomediastinal silhouette normal. Lungs and pleural spaces clear. Osseous structures normal. Upper abdomen normal. IMPRESSION: 1. No acute cardiopulmonary disease. Electronically signed by: Jose C Chavez M.D. 07/08/2017 5:55 PM Dictated Date/Time: 07/08/2017 5:54 PM (CHEST FOR PE) ANGIO WITH FINDINGS: Senior Environmental Practice Leader topogram: Unremarkable. Pulmonary vasculature: The study is adequate for assessment of the pulmonary vascular tree. A single filling defect is evident in a segmental artery to the right upper lobe. This is not felt to be artifactual given the opacification of the segmental branch both proximal and distal to the filling defect. However, no additional filling defects are evident. Main pulmonary artery is not enlarged. No flattening of the interventricular septum. No intracardiac intracardiac filling defect. No reflux of contrast into the hepatic veins. Remaining chest: On soft tissue windows, normal thyroid and thoracic inlet. Prominent mediastinal lymph nodes measuring up to 10 mm in the short axis in the paratracheal and subcarinal regions. Smaller prominent bilateral hilar lymph nodes also noted. Normal aorta. Normal heart size. No pericardial or pleural effusion. Indeterminate subcentimeter hypodensity in the anterior medial left hepatic lobe, possibly hepatic cyst or or hemangioma. On lung windows, minimal dependent changes likely atelectasis. Airways patent. On bone windows, normal osseous structures. IMPRESSION: 1. A single filling defect is evident in a segmental artery to the right upper lobe, which is convincing for a pulmonary embolus. However, no additional emboli are evident. This is a very limited embolus burden. Short-term follow-up CTA could be considered. 2. Prominent mediastinal lymph nodes which are borderline pathologically enlarged. These may be reactive. Follow-up if clinically indicated. Electronically signed by: Jose C Chavez M.D. 07/08/2017 7:19 PM Dictated Date/Time: 07/08/2017 7:12 PM VENOUS DOPPLER LWR EXT BILAT FINDINGS: Right: Common femoral vein: Patent. Greater saphenous vein: Patent. Deep femoral vein: Patent. Femoral vein: Patent. Popliteal vein: Patent. Calf veins: Patent. Left: Common femoral vein: Patent. Greater saphenous vein: Patent. Deep femoral vein: Patent. Femoral vein: Patent. Popliteal vein: Patent. Calf veins: Patent. Other: None. IMPRESSION: No evidence of deep venous thrombosis. Electronically signed by: Jose C Chavez M.D. 07/08/2017 9:26 PM Dictated Date/Time: 07/08/2017 9:25 PM . EKG EKG performed at 17:07 reviewed and demonstrated NSR at 90 / minute, J-point elevation inferior and lateral leads, no acute changes. . Impression Assessment and Plan PULMONARY EMBOLISM (present on admission) Presented to ED with pleuritic chest pain and SOB. D-dimer elevated. CTA chest demonstrates segmental pulmonary embolism right upper lobe. Venous duplex lower extremities negative for DVT. Probable provoked VTE due to recent travel, although symptoms started more than 1 week after returning home. Oxygenating well. Hemodynamically stable. SQ enoxaparin initiated in ED and will be continued pending decision regarding oral therapy (warfarin vs DOAC). Routine cancer screening recommendations should be followed. Tentative duration of anticoagulation 3 months. Consider outpatient Hematology consultation regarding ferry terminal supervisor recommendations. DYSLIPIDEMIA Continue atorvastatin. MIGRAINE HEADACHES Continue propranolol and sumatriptan. VTE PROPHYLAXIS Receiving SQ enoxaparin for acute PE. RESUSCITATION STATUS Full code. DISPOSITION Admit to Telemetry Unit. Expected discharge to home. Medical follow-up with Patrizia Lewis PA-C. . VTE Prophylaxis VTE Risk Assessment Done? Y/N: Yes Risk Level: High Given or contraindicated: Enoxaparin (Lovenox)SQ
[2017-07-08] MEDS ORDERED: ENOXAPARIN 100 MG/1ML SYR SQ STA (21:10)
--- NOTE | 2017-07-08 21:27 | DIAGNOSTIC IMAGING REPORT ---
VENOUS DOPPLER LWR EXT BILA CLINICAL HISTORY: 52 years-old Female presenting with PE, eval for DVT. TECHNIQUE: Real-time grayscale and color and spectral Doppler ultrasound imaging of the veins of the bilateral lower extremities was performed. Compression and augmentation were also utilized. COMPARISON: None. FINDINGS: Right: Common femoral vein: Patent. Greater saphenous vein: Patent. Deep femoral vein: Patent. Femoral vein: Patent. Popliteal vein: Patent. Calf veins: Patent. Left: Common femoral vein: Patent. Greater saphenous vein: Patent. Deep femoral vein: Patent. Femoral vein: Patent. Popliteal vein: Patent. Calf veins: Patent. Other: None. IMPRESSION: No evidence of deep venous thrombosis. Electronically signed by: Jose C Chavez M.D. 07/08/2017 9:26 PM Dictated Date/Time: 07/08/2017 9:25 PM
[2017-07-08] MEDS: ACETAMINOPHEN 325 MG TAB PO PRN (22:00)
[2017-07-08] MEDS ORDERED: SUMATRIPTAN SUCCINATE 50 MG TAB PO PRN (22:15)
[2017-07-08] MEDS ORDERED: TRAMADOL HCL 50 MG TAB PO PRN (22:15)
[2017-07-08] MEDS ORDERED: LORAZEPAM 0.5 MG TAB PO PRN (22:15)
[2017-07-08 23:00] VITALS: BP 131/74; PULSE 87; TEMP 37.1; O2SAT 97; Ht 160 cm; Wt 81.7 kg
[2017-07-08] MEDS: OXYCODONE HCL IR 5 MG TAB (IMMEDIATE RELEASE) PO PRN (23:14)
[2017-07-09] VITALS (7 sets, daily range): BP systolic 110–135; BP diastolic 57–72; PULSE 66–82; TEMP 36.7–37.1; O2SAT 93–99
--- NOTE | 2017-07-09 02:54 | EMERGENCY ROOM VISIT NOTE ---
ED Visit Note First contact with patient: 16:23 HPI: [id number] here with cough, congestion sob. Recent flight from [place]. Plan: D-dimer +. CT chest with positive segmental PE. BLE duplex negative. Admit. Justus I reviewed the patient's past medical history, medications, and visit nursing notes. I discussed the case with the physician office services assistant and agree with the findings and plan as documented in the physician assistants note.
--- NOTE | 2017-07-09 05:24 | Clinical Documentation Query ---
CLINICAL DOCUMENTATION QUERY 52 year old female who present with symptoms 2/2 PE. In your clinical opinion is this patient being managed for: ( ) Asthma exacerbation treated and resolved in ED ( ) Not Agree ( ) Other explanation of clinical findings (Please Explain) ( ) Unable to determine (Please Define) ( ) Need to Discuss The medical record reflects the following clinical findings, treatment, and risk factors. Clinical Indicators: PE, Mild expiratory wheezing per ED physical exam Treatment: IV Solumedrol, Duoneb, Risk Factors: Hx of asthma, PE, Please clarify and document your clinical opinion in the progress notes and discharge summary. Terms such as "probable", "suspected", "likely", "questionable", "possible", or "still to be ruled out" are acceptable. IF IN AGREEMENT, YOU MUST DOCUMENT ABOVE DIAGNOSTIC STATEMENT IN DAILY PROGRESS NOTES AND DISCHARGE SUMMARY. This document is not part of the patient's record. Thank You, Og Berg, ANDREE [phone]
--- NOTE | 2017-07-09 05:25 | Clinical Documentation Query ---
CLINICAL DOCUMENTATION QUERY 52 year old female who present with symptoms 2/2 PE. In your clinical opinion is this patient being managed for: ( ) Asthma exacerbation treated and resolved in ED ( ) Not Agree ( x ) Other explanation of clinical findings (Please Explain) INITIALLY TREATED FOR POSSIBLE ASTHMA EXACERBATION, BUT FOUND TO HAVE PULMONARY EMBOLISM ( ) Unable to determine (Please Define) ( ) Need to Discuss The medical record reflects the following clinical findings, treatment, and risk factors. Clinical Indicators: PE, Mild expiratory wheezing per ED physical exam Treatment: IV Solumedrol, Duoneb, Risk Factors: Hx of asthma, PE, Please clarify and document your clinical opinion in the progress notes and discharge summary. Terms such as "probable", "suspected", "likely", "questionable", "possible", or "still to be ruled out" are acceptable. IF IN AGREEMENT, YOU MUST DOCUMENT ABOVE DIAGNOSTIC STATEMENT IN DAILY PROGRESS NOTES AND DISCHARGE SUMMARY. This document is not part of the patient's record. Thank You, Og Berg, RN [phone]
[2017-07-09 07:01] LABS: CREATININE 0.77 mg/dl (0.60-1.20)
[2017-07-09] MEDS: ATORVASTATIN 10 MG TAB PO SCH (07:54)
[2017-07-09] MEDS: OXYCODONE HCL IR 5 MG TAB (IMMEDIATE RELEASE) PO PRN ×2 (07:54→16:26)
[2017-07-09] MEDS: PROPRANOLOL HCL 80 MG LA CAP PO SCH (07:55)
[2017-07-09] MEDS: PANTOprazole SOD 40 MG TAB PO SCH (07:55)
[2017-07-09] MEDS: ENOXAPARIN 80 MG/0.8 ML SYR SQ SCH ×2 (10:41→21:34)
[2017-07-09] MEDS ORDERED: GUAIFENESIN/CODEINE 100MG/10MG 5ML UDC ONE (14:05)
[2017-07-09] MEDS ORDERED: WARFARIN SOD 10 MG TAB PO STA (15:55)
--- NOTE | 2017-07-09 17:05 | Progress Note ---
Internal Med Progress Note Date of Service: Jul 09, 2017. 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 not in distress ENT-Normal hearing Neck-no neck masses Lungs-Cta b/l no wheezing or crackles Heart-S1 and S2 heard regular No murmurs Abdomen-Soft Bowel sounds present Non tender No distension Extremities-No edema No erythema Neuro-alert and awake moves extremities Lab data as noted below. ASSESSMENT & PLAN: PULMONARY EMBOLISM (present on admission) Presented with pleuritic chest pain and SOB. D-dimer elevated. CTA chest shows segmental pulmonary embolism right upper lobe. Lower extremities Doppler negative for DVT. Probable provoked VTE due to recent travel. Oxygenating well. Hemodynamically stable. on Lovenox sq patient decided to go with Coumadin Routine cancer screening recommendations should be followed with pcp/heme/onco. Minimum of 3months of anticoagulation intermediate frame tender Coumadin as per pcp/heme/onco based on further studies. DYSLIPIDEMIA On atorvastatin. MIGRAINE HEADACHES On propranolol and sumatriptan. VTE PROPHYLAXIS On SQ enoxaparin for acute PE. RESUSCITATION STATUS Full code as per h and p DISPOSITION transferred to medical floor expect to d/c home and f/u with pcp Vital Signs: Date Time Temp Pulse Resp B/P (MAP) Pulse Ox O2 Delivery O2 Flow Rate FiO2 07/09/17 15:32 99 Nasal Cannula 1.0 07/09/17 15:10 37.1 73 18 128/72 (90) 99 Nasal Cannula 1.0 07/09/17 12:18 36.8 66 18 114/69 (84) 98 Room Air 07/09/17 12:00 Nasal Cannula 2.0 07/09/17 11:56 36.8 72 18 95 07/09/17 11:55 36.8 72 18 118/67 (84) 95 Room Air 07/09/17 08:17 36.8 82 20 135/68 (90) 93 Room Air 07/09/17 08:00 Room Air 07/09/17 04:15 Room Air 07/09/17 04:09 36.7 79 20 110/57 (74) 95 Room Air 07/08/17 23:00 37.1 87 18 131/74 97 Room Air 07/08/17 22:00 78 20 154/80 97 Room Air 07/08/17 20:47 84 20 133/72 95 Room Air 07/08/17 19:26 80 20 129/68 95 Room Air Lab Results: Results Past 24 Hours Test 07/08/17 17:15 07/08/17 17:25 07/09/17 06:07 Range/Units White Blood Count 5.48 4.8-10.8 K/uL Red Blood Count 4.34 4.2-5.4 M/uL Hemoglobin 12.9 12.0-16.0 g/dL Hematocrit 39.7 37-47 % Mean Corpuscular Volume 91.5 80-100 fL Mean Corpuscular Hemoglobin 29.7 25-34 pg Mean Corpuscular Hemoglobin Concent 32.5 32-36 g/dl Platelet Count 259 130-400 K/uL Mean Platelet Volume 9.5 7.4-10.4 fL Neutrophils (%) (Auto) 68.8 % Lymphocytes (%) (Auto) 20.1 % Monocytes (%) (Auto) 7.8 % Eosinophils (%) (Auto) 2.7 % Basophils (%) (Auto) 0.4 % Neutrophils # (Auto) 3.77 1.4-6.5 K/uL Lymphocytes # (Auto) 1.10 1.2-3.4 K/uL Monocytes # (Auto) 0.43 0.11-0.59 K/uL Eosinophils # (Auto) 0.15 0-0.5 K/uL Basophils # (Auto) 0.02 0-0.2 K/uL RDW Standard Deviation 44.3 36.4-46.3 fL RDW Coefficient of Variation 13.2 11.5-14.5 % Immature Granulocyte % (Auto) 0.2 % Immature Granulocyte # (Auto) 0.01 0.00-0.02 K/uL D-Dimer 540 0-500 ug/L FEU Sodium Level 140 136-145 mmol/L Potassium Level 3.7 3.5-5.1 mmol/L Chloride Level 106 98-107 mmol/L Carbon Dioxide Level 28 21-32 mmol/L Anion Gap 6.0 3-11 mmol/L Blood Urea Nitrogen 12 7-18 mg/dl Creatinine 0.86 0.77 0.60-1.20 mg/dl Est Creatinine Clear Calc Drug Dose 79.1 87.7 ml/min Estimated GFR () 90.0 102.9 Estimated GFR (Non- 77.7 88.8 BUN/Creatinine Ratio 13.9 10-20 Random Glucose 94 70-99 mg/dl Calcium Level 9.0 8.5-10.1 mg/dl Total Bilirubin 0.2 0.2-1 mg/dl Aspartate Amino Transf (AST/SGOT) 20 15-37 U/L Alanine Aminotransferase (ALT/SGPT) 28 12-78 U/L Alkaline Phosphatase 153 45-117 U/L Troponin I < 0.015 0-0.045 ng/ml Total Protein 7.7 6.4-8.2 gm/dl Albumin 3.8 3.4-5.0 gm/dl Globulin 3.9 2.5-4.0 gm/dl Albumin/Globulin Ratio 1.0 0.9-2 Influenza Type A Antigen Neg for Influ A NEG Influenza Type B Antigen Neg for Influ B NEG Prothrombin Time 10.0 9.0-12.0 SECONDS Prothromb Time International Ratio 1.0 0.9-1.1
[2017-07-09] MEDS: GUAIFENESIN/CODEINE 100MG/10MG 5ML UDC PO PRN (21:35)
[2017-07-10 00:03] VITALS: BP 128/79; PULSE 73; TEMP 36.6; O2SAT 98
[2017-07-10 07:34] VITALS: BP 119/70; PULSE 86; TEMP 37.8; O2SAT 97
[2017-07-10 07:47] LABS: BASO % 0.2 %; BASO ABS # 0.01 K/uL (0-0.2); COMPLETE YES; EOS % 0.2 %; HEMATOCRIT 39.5 % (37-47); IG% 0.2 %; LYMPH % 20.4 %; LYMPH ABS # 0.97 K/uL (1.2-3.4); MEAN CELL VOLUME 93.2 fL (80-100); MEAN CORPUSCULAR HEMOGLOBIN 30.2 pg (25-34); MEAN CORPUSCULAR HGB CONC 32.4 g/dl (32-36); MONO % 9.2 %; NEUT % 69.8 %; PLATELET COUNT 218 K/uL (130-400); RED BLOOD COUNT 4.24 M/uL (4.2-5.4); WHITE BLOOD COUNT 4.76 K/uL (4.8-10.8)
[2017-07-10 08:04] LABS: PROTHROMBIN TIME (PATIENT) 10.9 SECONDS (9.0-12.0)
[2017-07-10 08:20] LABS: BUN/CREATININE RATIO 16.8 (10-20); CALCIUM 8.6 mg/dl (8.5-10.1); CREATININE 0.86 mg/dl (0.60-1.20); MAGNESIUM 2.2 mg/dl (1.8-2.4); POTASSIUM 3.8 mmol/L (3.5-5.1)
[2017-07-10] MEDS: ATORVASTATIN 10 MG TAB PO SCH (09:01)
[2017-07-10] MEDS: PROPRANOLOL HCL 80 MG LA CAP PO SCH (09:01)
[2017-07-10] MEDS: PANTOprazole SOD 40 MG TAB PO SCH (09:01)
[2017-07-10] MEDS: ENOXAPARIN 80 MG/0.8 ML SYR SQ SCH ×2 (09:02→21:17)
[2017-07-10] MEDS: ACETAMINOPHEN 325 MG TAB PO PRN (09:02)
[2017-07-10 13:30] VITALS: BP 92/59; PULSE 73; TEMP 37
[2017-07-10 14:57] VITALS: BP 109/70; PULSE 64; TEMP 37.4; O2SAT 98
[2017-07-10 16:00] VITALS: O2SAT 98
[2017-07-10] MEDS: WARFARIN SOD 5 MG TAB PO SCH (16:40)
--- NOTE | 2017-07-10 17:01 | Progress Note ---
Internal Med Progress Note Date of Service: Jul 10, 2017. Provider Documentation: SUBJECTIVE: says she had fever in the morning has some cough some chest pain some nausea want to stay until she no longer needs Lovenox OBJECTIVE: Vital Signs-as noted below Exam: General-alert and awake. not in distress ENT-Normal hearing Neck-no neck masses Lungs-Cta b/l no wheezing or crackles Heart-S1 and S2 heard regular No murmurs Abdomen-Soft Bowel sounds present Non tender No distension Extremities-No edema No erythema Neuro-alert and awake moves extremities Lab data as noted below. ASSESSMENT & PLAN: PULMONARY EMBOLISM (present on admission) Presented with pleuritic chest pain and SOB. D-dimer elevated. CTA chest shows segmental pulmonary embolism right upper lobe. Lower extremities Doppler negative for DVT. Probable provoked VTE due to recent travel. Oxygenating well. Hemodynamically stable. on Lovenox sq patient decided to go with Coumadin Routine cancer screening recommendations should be followed with pcp/heme/onco. Minimum of 3months of anticoagulation [facility] Coumadin as per pcp/heme/onco based on further studies. started on Coumadin will f/u inr Fever cough will f/u cxr mostly from PE. DYSLIPIDEMIA On atorvastatin. MIGRAINE HEADACHES On propranolol and sumatriptan. VTE PROPHYLAXIS On SQ enoxaparin for acute PE. RESUSCITATION STATUS Full code as per h and p DISPOSITION Monitor in medical floor expect to d/c home and f/u with pcp Vital Signs: Date Time Temp Pulse Resp B/P (MAP) Pulse Ox O2 Delivery O2 Flow Rate FiO2 07/10/17 14:57 37.4 64 18 109/70 (83) 98 Room Air 07/10/17 13:30 37.0 73 92/59 (70) 07/10/17 10:30 Nasal Cannula 1.0 07/10/17 07:34 37.8 86 16 119/70 (86) 97 1.0 07/10/17 00:03 36.6 73 16 128/79 (95) 98 Nasal Cannula 1.0 07/10/17 00:00 Nasal Cannula 1.0 CPAP Lab Results: Results Past 24 Hours Test 07/10/17 07:07 07/10/17 11:09 Range/Units White Blood Count 4.76 4.8-10.8 K/uL Red Blood Count 4.24 4.2-5.4 M/uL Hemoglobin 12.8 12.0-16.0 g/dL Hematocrit 39.5 37-47 % Mean Corpuscular Volume 93.2 80-100 fL Mean Corpuscular Hemoglobin 30.2 25-34 pg Mean Corpuscular Hemoglobin Concent 32.4 32-36 g/dl Platelet Count 218 130-400 K/uL Mean Platelet Volume 10.0 7.4-10.4 fL Neutrophils (%) (Auto) 69.8 % Lymphocytes (%) (Auto) 20.4 % Monocytes (%) (Auto) 9.2 % Eosinophils (%) (Auto) 0.2 % Basophils (%) (Auto) 0.2 % Neutrophils # (Auto) 3.32 1.4-6.5 K/uL Lymphocytes # (Auto) 0.97 1.2-3.4 K/uL Monocytes # (Auto) 0.44 0.11-0.59 K/uL Eosinophils # (Auto) 0.01 0-0.5 K/uL Basophils # (Auto) 0.01 0-0.2 K/uL RDW Standard Deviation 45.5 36.4-46.3 fL RDW Coefficient of Variation 13.5 11.5-14.5 % Immature Granulocyte % (Auto) 0.2 % Immature Granulocyte # (Auto) 0.01 0.00-0.02 K/uL Prothrombin Time 10.9 9.0-12.0 SECONDS Prothromb Time International Ratio 1.0 0.9-1.1 Sodium Level 137 136-145 mmol/L Potassium Level 3.8 3.5-5.1 mmol/L Chloride Level 104 98-107 mmol/L Carbon Dioxide Level 27 21-32 mmol/L Anion Gap 6.0 3-11 mmol/L Blood Urea Nitrogen 14 7-18 mg/dl Creatinine 0.86 0.60-1.20 mg/dl Est Creatinine Clear Calc Drug Dose 78.5 ml/min Estimated GFR () 90.0 Estimated GFR (Non- 77.7 BUN/Creatinine Ratio 16.8 10-20 Random Glucose 95 70-99 mg/dl Calcium Level 8.6 8.5-10.1 mg/dl Magnesium Level 2.2 1.8-2.4 mg/dl Bedside Glucose 110 70-90 mg/dl
--- NOTE | 2017-07-10 17:27 | DIAGNOSTIC IMAGING REPORT ---
CHEST ONE VIEW PORTABLE CLINICAL HISTORY: cough. fever COMPARISON STUDY: 07/08/2017 FINDINGS: The heart is at the upper limits of normal in size. There is no focal pulmonary consolidation. There is no failure. There are no pleural effusions.[ IMPRESSION: No active disease in the chest. Electronically signed by: Corby Bowles M.D. 07/10/2017 5:26 PM Dictated Date/Time: 07/10/2017 5:26 PM
[2017-07-10 23:45] VITALS: BP 108/65; PULSE 68; TEMP 37.7; O2SAT 98
[2017-07-11] MEDS: ACETAMINOPHEN 325 MG TAB PO PRN
[2017-07-11 01:10] VITALS: TEMP 37.4
[2017-07-11 06:10] LABS: BASO % 0.6 %; BASO ABS # 0.02 K/uL (0-0.2); COMPLETE YES; EOS % 0.3 %; HEMATOCRIT 39.1 % (37-47); LYMPH % 46.3 %; LYMPH ABS # 1.48 K/uL (1.2-3.4); MEAN CELL VOLUME 91.8 fL (80-100); MEAN CORPUSCULAR HEMOGLOBIN 30.3 pg (25-34); MEAN PLATELET VOLUME 9.6 fL (7.4-10.4); MONO % 14.4 %; NEUT % 38.4 %; PLATELET COUNT 204 K/uL (130-400); RED BLOOD COUNT 4.26 M/uL (4.2-5.4)
[2017-07-11 06:26] LABS: INR 1.2 (0.9-1.1); PROTHROMBIN TIME (PATIENT) 12.8 SECONDS (9.0-12.0)
[2017-07-11 06:49] LABS: BUN/CREATININE RATIO 19.5 (10-20); CALCIUM 8.7 mg/dl (8.5-10.1); CREATININE 0.67 mg/dl (0.60-1.20); MAGNESIUM 2.2 mg/dl (1.8-2.4); POTASSIUM 3.3 mmol/L (3.5-5.1)
[2017-07-11 07:27] VITALS: BP 111/66; PULSE 61; TEMP 36.6; O2SAT 94
[2017-07-11] MEDS: ATORVASTATIN 10 MG TAB PO SCH (07:48)
[2017-07-11] MEDS: PANTOprazole SOD 40 MG TAB PO SCH (07:48)
[2017-07-11] MEDS: PROPRANOLOL HCL 80 MG LA CAP PO SCH (07:49)
[2017-07-11 08:00] VITALS: O2SAT 94
[2017-07-11] MEDS: ENOXAPARIN 80 MG/0.8 ML SYR SQ SCH ×2 (10:32→21:16)
[2017-07-11] MEDS ORDERED: POTASSIUM CHLORIDE 20 MEQ TABCR PO ONE (14:30)
[2017-07-11 15:04] VITALS: BP 102/58; PULSE 60; TEMP 37.1; O2SAT 95
[2017-07-11] MEDS: WARFARIN SOD 5 MG TAB PO SCH (15:38)
--- NOTE | 2017-07-11 16:42 | Progress Note ---
Internal Med Progress Note Date of Service: Jul 11, 2017. Provider Documentation: SUBJECTIVE: feeling better today still has cough poor appetite no fevers language barrier- can only speak little [place] Citizen seems comfortable OBJECTIVE: Vital Signs-as noted below Exam: General-alert and awake. not in distress ENT-Normal hearing Neck-no neck masses Lungs-Cta b/l no wheezing or crackles Heart-S1 and S2 heard regular No murmurs Abdomen-Soft Bowel sounds present Non tender No distension Extremities-No edema No erythema Neuro-alert and awake moves extremities Lab data as noted below. ASSESSMENT & PLAN: PULMONARY EMBOLISM (present on admission) Presented with pleuritic chest pain and SOB. D-dimer elevated. CTA chest shows segmental pulmonary embolism right upper lobe. Lower extremities Doppler negative for DVT. Probable provoked VTE due to recent travel. Oxygenating well. Hemodynamically stable. on Lovenox sq patient decided to go with Coumadin Routine cancer screening recommendations should be followed with pcp/heme/onco. 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 started on Coumadin INr 1.2 today await inr to be therapeutic Fever cough leukopenia cxr unremarkable will check flu pcr DYSLIPIDEMIA On atorvastatin. MIGRAINE HEADACHES On propranolol and sumatriptan. VTE PROPHYLAXIS On SQ enoxaparin for acute PE. RESUSCITATION STATUS Full code as per h and p DISPOSITION Monitor in medical floor expect to d/c home and f/u with pcp Vital Signs: Date Time Temp Pulse Resp B/P (MAP) Pulse Ox O2 Delivery O2 Flow Rate FiO2 07/11/17 16:08 Room Air 07/11/17 15:04 37.1 60 18 102/58 (73) 95 Room Air 07/11/17 08:00 94 Room Air 07/11/17 07:27 36.6 61 18 111/66 (81) 94 Room Air 07/11/17 01:10 37.4 07/11/17 00:00 Room Air CPAP 07/10/17 23:45 37.7 68 16 108/65 (79) 98 BiPAP Lab Results: Results Past 24 Hours Test 07/11/17 05:37 07/11/17 16:24 Range/Units White Blood Count 3.20 4.8-10.8 K/uL Red Blood Count 4.26 4.2-5.4 M/uL Hemoglobin 12.9 12.0-16.0 g/dL Hematocrit 39.1 37-47 % Mean Corpuscular Volume 91.8 80-100 fL Mean Corpuscular Hemoglobin 30.3 25-34 pg Mean Corpuscular Hemoglobin Concent 33.0 32-36 g/dl Platelet Count 204 130-400 K/uL Mean Platelet Volume 9.6 7.4-10.4 fL Neutrophils (%) (Auto) 38.4 % Lymphocytes (%) (Auto) 46.3 % Monocytes (%) (Auto) 14.4 % Eosinophils (%) (Auto) 0.3 % Basophils (%) (Auto) 0.6 % Neutrophils # (Auto) 1.23 1.4-6.5 K/uL Lymphocytes # (Auto) 1.48 1.2-3.4 K/uL Monocytes # (Auto) 0.46 0.11-0.59 K/uL Eosinophils # (Auto) 0.01 0-0.5 K/uL Basophils # (Auto) 0.02 0-0.2 K/uL RDW Standard Deviation 44.1 36.4-46.3 fL RDW Coefficient of Variation 13.3 11.5-14.5 % Immature Granulocyte % (Auto) 0.0 % Immature Granulocyte # (Auto) 0.00 0.00-0.02 K/uL Prothrombin Time 12.8 9.0-12.0 SECONDS Prothromb Time International Ratio 1.2 0.9-1.1 Sodium Level 137 136-145 mmol/L Potassium Level 3.3 3.5-5.1 mmol/L Chloride Level 103 98-107 mmol/L Carbon Dioxide Level 28 21-32 mmol/L Anion Gap 6.0 3-11 mmol/L Blood Urea Nitrogen 13 7-18 mg/dl Creatinine 0.67 0.60-1.20 mg/dl Est Creatinine Clear Calc Drug Dose 100.8 ml/min Estimated GFR () 117.1 Estimated GFR (Non- 101.1 BUN/Creatinine Ratio 19.5 10-20 Random Glucose 87 70-99 mg/dl Calcium Level 8.7 8.5-10.1 mg/dl Magnesium Level 2.2 1.8-2.4 mg/dl
[2017-07-11 19:39] LABS: INFLUENZA A PCR POS for Influ A (NEG); INFLUENZA B PCR Neg for Influ B (NEG)
[2017-07-11] MEDS ORDERED: OSELTAMIVIR PHOSPHATE 75 MG CAP PO ONE (20:30)
[2017-07-12 01:38] VITALS: PULSE 66; TEMP 36.8; O2SAT 97
[2017-07-12 02:07] VITALS: PULSE 74; O2SAT 98
[2017-07-12 06:15] LABS: BASO % 0.3 %; BASO ABS # 0.01 K/uL (0-0.2); COMPLETE YES; EOS % 1.3 %; HEMATOCRIT 39.4 % (37-47); LYMPH % 48.2 %; LYMPH ABS # 1.84 K/uL (1.2-3.4); MEAN CELL VOLUME 90.8 fL (80-100); MEAN CORPUSCULAR HEMOGLOBIN 30.9 pg (25-34); MEAN PLATELET VOLUME 9.8 fL (7.4-10.4); MONO % 9.9 %; NEUT % 40.3 %; PLATELET COUNT 211 K/uL (130-400); RED BLOOD COUNT 4.34 M/uL (4.2-5.4); WHITE BLOOD COUNT 3.82 K/uL (4.8-10.8)
[2017-07-12 06:24] LABS: INR 1.3 (0.9-1.1)
[2017-07-12 06:45] LABS: BUN/CREATININE RATIO 18.9 (10-20); CALCIUM 8.5 mg/dl (8.5-10.1); CREATININE 0.67 mg/dl (0.60-1.20); MAGNESIUM 2.1 mg/dl (1.8-2.4); POTASSIUM 3.7 mmol/L (3.5-5.1)
[2017-07-12] MEDS: PROPRANOLOL HCL 80 MG LA CAP PO SCH (07:43)
[2017-07-12] MEDS: ATORVASTATIN 10 MG TAB PO SCH (07:43)
[2017-07-12] MEDS: PANTOprazole SOD 40 MG TAB PO SCH (07:43)
[2017-07-12 07:44] VITALS: BP 106/61; PULSE 63; TEMP 36.8; O2SAT 97
[2017-07-12] MEDS: OSELTAMIVIR PHOSPHATE 75 MG CAP PO SCH ×2 (07:44→21:57)
[2017-07-12 08:00] VITALS: O2SAT 97
[2017-07-12] MEDS: ENOXAPARIN 80 MG/0.8 ML SYR SQ SCH ×2 (10:49→21:58)
[2017-07-12] MEDS ORDERED: WARFARIN SOD 6 MG TAB PO SCH (16:00)
[2017-07-12] MEDS ORDERED: WARFARIN SOD 10 MG TAB PO SCH (16:00)
--- NOTE | 2017-07-12 16:29 | Progress Note ---
Internal Med Progress Note Date of Service: Jul 12, 2017. Provider Documentation: SUBJECTIVE: still poor appetite has cough afebrile today has some chest pain on coughing hemodynamics stable OBJECTIVE: Vital Signs-as noted below Exam: General-alert and awake. not in distress ENT-Normal hearing Neck-no neck masses Lungs-Cta b/l no wheezing or crackles Heart-S1 and S2 heard regular No murmurs Abdomen-Soft Bowel sounds present Non tender No distension Extremities-No edema No erythema Neuro-alert and awake moves extremities Lab data as noted below. ASSESSMENT & PLAN: PULMONARY EMBOLISM (present on admission) Presented with pleuritic chest pain and SOB. D-dimer elevated. CTA chest shows segmental pulmonary embolism right upper lobe. Lower extremities Doppler negative for DVT. Probable provoked VTE due to recent travel. Oxygenating well. Hemodynamically stable. on Lovenox sq patient decided to go with Coumadin Routine cancer screening recommendations should be followed with pcp/heme/onco. 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 started on Coumadin INr 1.3 today increase coumadin to 10mg daily await inr to be therapeutic Influenza positive Fever cough leukopenia cxr unremarkable stared on Tamiflu DYSLIPIDEMIA On atorvastatin. MIGRAINE HEADACHES On propranolol and sumatriptan. VTE PROPHYLAXIS On SQ enoxaparin for acute PE. RESUSCITATION STATUS Full code as per h and p DISPOSITION Monitor in medical floor expect to d/c home and f/u with pcp Vital Signs: Date Time Temp Pulse Resp B/P (MAP) Pulse Ox O2 Delivery O2 Flow Rate FiO2 07/12/17 08:00 97 Room Air 07/12/17 07:44 36.8 63 18 106/61 (76) 97 Room Air 07/12/17 02:07 74 98 07/12/17 01:38 36.8 66 20 97 Room Air 07/12/17 00:00 CPAP 07/11/17 20:00 Room Air Lab Results: Results Past 24 Hours Test 07/12/17 05:52 Range/Units White Blood Count 3.82 4.8-10.8 K/uL Red Blood Count 4.34 4.2-5.4 M/uL Hemoglobin 13.4 12.0-16.0 g/dL Hematocrit 39.4 37-47 % Mean Corpuscular Volume 90.8 80-100 fL Mean Corpuscular Hemoglobin 30.9 25-34 pg Mean Corpuscular Hemoglobin Concent 34.0 32-36 g/dl Platelet Count 211 130-400 K/uL Mean Platelet Volume 9.8 7.4-10.4 fL Neutrophils (%) (Auto) 40.3 % Lymphocytes (%) (Auto) 48.2 % Monocytes (%) (Auto) 9.9 % Eosinophils (%) (Auto) 1.3 % Basophils (%) (Auto) 0.3 % Neutrophils # (Auto) 1.54 1.4-6.5 K/uL Lymphocytes # (Auto) 1.84 1.2-3.4 K/uL Monocytes # (Auto) 0.38 0.11-0.59 K/uL Eosinophils # (Auto) 0.05 0-0.5 K/uL Basophils # (Auto) 0.01 0-0.2 K/uL RDW Standard Deviation 43.3 36.4-46.3 fL RDW Coefficient of Variation 12.9 11.5-14.5 % Immature Granulocyte % (Auto) 0.0 % Immature Granulocyte # (Auto) 0.00 0.00-0.02 K/uL Prothrombin Time 14.0 9.0-12.0 SECONDS Prothromb Time International Ratio 1.3 0.9-1.1 Sodium Level 138 136-145 mmol/L Potassium Level 3.7 3.5-5.1 mmol/L Chloride Level 105 98-107 mmol/L Carbon Dioxide Level 29 21-32 mmol/L Anion Gap 4.0 3-11 mmol/L Blood Urea Nitrogen 13 7-18 mg/dl Creatinine 0.67 0.60-1.20 mg/dl Est Creatinine Clear Calc Drug Dose 100.0 ml/min Estimated GFR () 117.1 Estimated GFR (Non- 101.1 BUN/Creatinine Ratio 18.9 10-20 Random Glucose 98 70-99 mg/dl Calcium Level 8.5 8.5-10.1 mg/dl Magnesium Level 2.1 1.8-2.4 mg/dl
[2017-07-12 16:30] VITALS: BP 99/63; PULSE 59; TEMP 37.2; O2SAT 95
[2017-07-12 17:58] VITALS: O2SAT 97
[2017-07-13 00:41] VITALS: BP 116/71; PULSE 55; TEMP 36.7; O2SAT 99
[2017-07-13 06:29] LABS: INR 1.7 (0.9-1.1)
[2017-07-13 07:33] VITALS: BP 115/71; PULSE 74; TEMP 36.6; O2SAT 96
[2017-07-13] MEDS: PROPRANOLOL HCL 80 MG LA CAP PO SCH (08:31)
[2017-07-13] MEDS: PANTOprazole SOD 40 MG TAB PO SCH (08:31)
[2017-07-13] MEDS: OSELTAMIVIR PHOSPHATE 75 MG CAP PO SCH ×2 (08:31→21:07)
[2017-07-13] MEDS: ATORVASTATIN 10 MG TAB PO SCH (08:31)
[2017-07-13] MEDS: GUAIFENESIN/CODEINE 100MG/10MG 5ML UDC PO PRN ×2 (08:40→14:19)
[2017-07-13] MEDS: ENOXAPARIN 80 MG/0.8 ML SYR SQ SCH ×2 (10:19→21:08)
[2017-07-13 15:36] VITALS: BP 105/71; PULSE 58; TEMP 36.9; O2SAT 95
[2017-07-13] MEDS ORDERED: WARFARIN SOD 10 MG TAB PO SCH (16:00)
[2017-07-13 16:30] VITALS: O2SAT 95
--- NOTE | 2017-07-13 16:41 | Progress Note ---
Internal Med Progress Note Date of Service: Jul 13, 2017. Provider Documentation: SUBJECTIVE: not eating much little better still has cough hemodynamics stable OBJECTIVE: Vital Signs-as noted below Exam: General-alert and awake. not in distress ENT-Normal hearing Neck-no neck masses Lungs-Cta b/l no wheezing or crackles Heart-S1 and S2 heard regular No murmurs Abdomen-Soft Bowel sounds present Non tender No distension Extremities-No edema No erythema Neuro-alert and awake moves extremities Lab data as noted below. ASSESSMENT & PLAN: PULMONARY EMBOLISM (present on admission) Presented with pleuritic chest pain and SOB. D-dimer elevated. CTA chest shows segmental pulmonary embolism right upper lobe. Lower extremities Doppler negative for DVT. Probable provoked VTE due to recent travel. Oxygenating well. Hemodynamically stable. on Lovenox sq patient decided to go with Coumadin Routine cancer screening recommendations should be followed with pcp/heme/onco. Minimum of 3months of anticoagulation [facility] Coumadin as per pcp/heme/onco based on further studies. started on Coumadin increase coumadin to 10mg daily await inr to be therapeutic INR 1.7 today Influenza positive Fever cough leukopenia cxr unremarkable started on Tamiflu DYSLIPIDEMIA On atorvastatin. MIGRAINE HEADACHES On propranolol and sumatriptan. VTE PROPHYLAXIS On SQ enoxaparin for acute PE. RESUSCITATION STATUS Full code as per h and p DISPOSITION Monitor in medical floor expect to d/c home in am and f/u with pcp Vital Signs: Date Time Temp Pulse Resp B/P (MAP) Pulse Ox O2 Delivery O2 Flow Rate FiO2 07/13/17 15:36 36.9 58 20 105/71 (82) 95 Room Air 07/13/17 09:30 Room Air 07/13/17 07:33 36.6 74 18 115/71 (86) 96 Room Air 07/13/17 00:41 36.7 55 20 116/71 (86) 99 Room Air 07/13/17 00:00 CPAP 07/12/17 20:00 Room Air 07/12/17 17:58 97 Room Air Lab Results: Results Past 24 Hours Test 07/13/17 05:53 Range/Units Prothrombin Time 18.0 9.0-12.0 SECONDS Prothromb Time International Ratio 1.7 0.9-1.1
[2017-07-13] MEDS ORDERED: IBUPROFEN 600 MG TAB PO ONE (20:00)
[2017-07-13] MEDS: DOXYCYCLINE HYCLATE 100 MG CAP PO SCH (21:07)
[2017-07-14 00:16] VITALS: BP 113/67; PULSE 62; TEMP 36.5; O2SAT 95
[2017-07-14 06:07] LABS: BASO % 0.5 %; BASO ABS # 0.02 K/uL (0-0.2); COMPLETE YES; HEMATOCRIT 40.3 % (37-47); LYMPH % 44.7 %; LYMPH ABS # 1.77 K/uL (1.2-3.4); MEAN CELL VOLUME 91.2 fL (80-100); MEAN CORPUSCULAR HEMOGLOBIN 29.9 pg (25-34); MEAN CORPUSCULAR HGB CONC 32.8 g/dl (32-36); MEAN PLATELET VOLUME 9.5 fL (7.4-10.4); MONO % 9.8 %; PLATELET COUNT 217 K/uL (130-400); RED BLOOD COUNT 4.42 M/uL (4.2-5.4); WHITE BLOOD COUNT 3.96 K/uL (4.8-10.8)
[2017-07-14 06:32] LABS: INR 2.6 (0.9-1.1); PROTHROMBIN TIME (PATIENT) 26.3 SECONDS (9.0-12.0)
[2017-07-14 06:39] LABS: BLOOD UREA NITROGEN 10 mg/dl (7-18); BUN/CREATININE RATIO 12.4 (10-20); CALCIUM 8.6 mg/dl (8.5-10.1); CARBON DIOXIDE 31 mmol/L (21-32); CHLORIDE 106 mmol/L (98-107); CREATININE 0.77 mg/dl (0.60-1.20); GLUCOSE 97 mg/dl (70-99); MAGNESIUM 2.3 mg/dl (1.8-2.4); POTASSIUM 4.1 mmol/L (3.5-5.1); SODIUM 141 mmol/L (136-145)
[2017-07-14] MEDS: ATORVASTATIN 10 MG TAB PO SCH (07:37)
[2017-07-14] MEDS: GUAIFENESIN/CODEINE 100MG/10MG 5ML UDC PO PRN (07:37)
[2017-07-14] MEDS: PANTOprazole SOD 40 MG TAB PO SCH (07:38)
[2017-07-14] MEDS: DOXYCYCLINE HYCLATE 100 MG CAP PO SCH (07:38)
[2017-07-14] MEDS: OSELTAMIVIR PHOSPHATE 75 MG CAP PO SCH (07:38)
[2017-07-14] MEDS: PROPRANOLOL HCL 80 MG LA CAP PO SCH (07:38)
[2017-07-14 07:44] VITALS: BP 100/67; PULSE 57; TEMP 36.5; O2SAT 99
--- NOTE | 2017-07-14 08:56 | ECHOCARDIOGRAM REPORT ---
*NOTICE TO RECEIVING DEMOCRAT AGENCY This information is strictly Confidential and protected under [place] law. [place] law prohibits you from making any further disclosure of this information unless further disclosure is expressly permitted by the written consent of the person to whom it pertains or is authorized by law. A general authorization for the release of medical or other information is not sufficient for this purpose. Hospital accepts no responsibility if the information is made available to any other person, INCLUDING THE PATIENT. Interpretation Summary * Name: MIKEY MATTHEWS Study Date: 07/14/2017 06:36 AM BP: 113/67 mmHg * Patient Location: .[id number]\E409\S\1 HR: 62 * : 1965 (M/d/yyyy) Gender: Female Height: 63 in * Age: 52 yrs Ethnicity: [place] Weight: 180 lb * Ordering Physician: John Soto * Referring Physician: Self, Referred * Performed By: Florencia Escobedo RDCS * * Reason For Study: Chest pain * BSA: 1.8 m2 * Grossly normal valvular structure and function. * -- Conclusions -- * The left ventricle is normal in size. * The left ventricular wall motion is normal. * Ejection Fraction = 55-60%. * The right ventricular systolic function is normal. * The left atrial size is normal. * Right atrial size is normal. * Grossly normal valvular structure and function. Procedure Details * A complete two-dimensional transthoracic echocardiogram was performed (2D, M-mode, Doppler and color flow Doppler). Left Ventricle * The left ventricle is normal in size. * There is normal left ventricular wall thickness. * Ejection Fraction = 55-60%. * The left ventricular wall motion is normal. Right Ventricle * The right ventricle is not well visualized. * The right ventricular systolic function is normal. Atria * The left atrial size is normal. * Right atrial size is normal. * There is no evidence of atrial septal defect, but resolution does not allow assessment for a patent foramen ovale. Mitral Valve * The mitral valve is grossly normal. * Significant mitral regurgitation is absent. Tricuspid Valve * The tricuspid valve is not well visualized, but is grossly normal. * Significant tricuspid regurgitation is absent. Aortic Valve * The aortic valve is not well visualized. * The aortic valve opens well. * No hemodynamically significant valvular aortic stenosis. * There is no significant aortic regurgitation. Pulmonic Valve * The pulmonic valve is not well visualized. * There is no significant pulmonary regurgitation. Pericardium/Pleural * There is no pericardial effusion. MMode 2D Measurements and Calculations IVSd 0.97 cm LVIDd 3.4 cm LVIDs 2.5 cm LVPWd 1.0 cm IVS/LVPW 0.95 FS 25.8 % EDV(Teich) 46.3 ml ESV(Teich) 22.3 ml EF(Teich) 51.8 % EDV(cubed) 38.1 ml ESV(cubed) 15.6 ml EF(cubed) 59.1 % LV mass(C)d 96.7 grams LV mass(C)dI 52.3 grams/m\S\2 SV(Teich) 24.0 ml SI(Teich) 13.0 ml/m\S\2 SV(cubed) 22.5 ml SI(cubed) 12.2 ml/m\S\2 Ao root diam 2.4 cm Ao root area 4.7 cm\S\2 ACS 1.9 cm LA dimension 3.5 cm asc Aorta Diam 2.9 cm LA/Ao 1.4 LVOT diam 2.0 cm LVOT area 3.1 cm\S\2 LVAd ap4 19.1 cm\S\2 LVLd ap4 7.1 cm EDV(MOD-sp4) 43.6 ml EDV(sp4-el) 43.8 ml LVAs ap4 11.6 cm\S\2 LVLs ap4 5.7 cm ESV(MOD-sp4) 19.9 ml ESV(sp4-el) 19.9 ml EF(MOD-sp4) 54.4 % EF(sp4-el) 54.4 % LVAd ap2 18.5 cm\S\2 LVLd ap2 6.6 cm EDV(MOD-sp2) 44.3 ml EDV(sp2-el) 44.5 ml LVAs ap2 10.8 cm\S\2 LVLs ap2 5.1 cm ESV(MOD-sp2) 18.3 ml ESV(sp2-el) 19.3 ml EF(MOD-sp2) 58.6 % EF(sp2-el) 56.7 % LVLd %diff -8.01 % EDV(MOD-bp) 43.3 ml LVLs %diff -11.29 % ESV(MOD-bp) 19.7 ml EF(MOD-bp) 54.4 % SV(MOD-sp4) 23.7 ml SI(MOD-sp4) 12.8 ml/m\S\2 SV(MOD-sp2) 25.9 ml SI(MOD-sp2) 14.0 ml/m\S\2 SV(MOD-bp) 23.6 ml SI(MOD-bp) 12.7 ml/m\S\2 SV(sp4-el) 23.8 ml SI(sp4-el) 12.9 ml/m\S\2 SV(sp2-el) 25.2 ml SI(sp2-el) 13.6 ml/m\S\2 Doppler Measurements and Calculations MV E max iván 78.6 cm/sec MV A max iván 70.3 cm/sec MV E/A 1.1 MV dec time 0.23 sec Ao V2 max 131.4 cm/sec Ao max PG 6.9 mmHg Ao max PG (full) 3.1 mmHg LESLIE(V,A) 2.3 cm\S\2 LESLIE(V,D) 2.3 cm\S\2 LV V1 max PG 3.8 mmHg LV V1 max 97.0 cm/sec PA V2 max 97.7 cm/sec PA max PG 3.8 mmHg PA acc slope 432.5 cm/sec\S\2 PA acc time 0.15 sec TR max iván 180.5 cm/sec PA pr(Accel) 10.9 mmHg
[2017-07-14] MEDS ORDERED: ONDANSETRON INJ 2 MG/ML 2 ML VIAL IV. ONE (09:15)
[2017-07-14] MEDS: ENOXAPARIN 80 MG/0.8 ML SYR SQ SCH (10:21)
[2017-07-14] MEDS ORDERED: ENOXAPARIN 40 MG/0.4 ML SYR SQ ONE (12:30)
[2017-07-14] MEDS ORDERED: GUAISYP4 PO (12:49)
[2017-07-14] MEDS ORDERED: TMF75 PO (12:49)
[2017-07-14] MEDS ORDERED: IBUP-1427 PO (12:49)
[2017-07-14] MEDS ORDERED: CMD6 PO (12:49)
--- NOTE | 2017-07-14 12:58 | Discharge Instructions ---
Discharge Instructions Date of Service Jul 14, 2017. Admission Reason for Admission: Pulmonary Embolism Discharge Discharge Diagnosis / Problem: PULMONARY EMBOLISM, INFLUENZA A, PERICARDITIS? Discharge Goals Goal(s): Decrease discomfort, Improve function Activity Recommendations Activity Limitations: resume your previous activity . Instructions / Follow-Up Instructions / Follow-Up FOLLOWUP WITH FAMILY DOCTOR ( AT [facility]) ON Jun AT 10:45AM FOLLOWUP WITH CARDIOLOGY ( AT [facility]) O Jul AT 3:15PM.( FOR POSSIBLE INFLAMMATION OF HEART-PERICARDITIS). TO TAKE COUMADIN 6MG DAILY IN EVENING UNTIL FURTHER INSTRUCTIONS FROM COUMADIN CLINIC. LAB: PT/INR IN 3-4 DAYS AND FOLLOW RESULTS WITH COUMADIN CLINIC. BASED ON LABS FURTHER ADJUSTMENTS OF COUMADIN DOSING PER COUMADIN CLINIC.WILL NOTIFY COUMADIN CLINIC AND THEY WILL CALL YOU. IF YOU DONT GET CALL FROM COUMADIN CLINIC CHECK WITH YOUR FAMILY DOCTOR. TO BE ON COUMADIN AT LEAST FOR 3MONTHS. FURTHER DURATION OF COUMADIN PER FAMILY DOCTOR. Current Hospital Diet Patient's current hospital diet: AHA Diet (Heart Healthy) Discharge Diet Recommended Diet: AHA Diet (Heart Healthy) Pending Studies Studies pending at discharge: no Medical Emergencies . Who to Call and When: Medical Emergencies: If at any time you feel your situation is an emergency, please call 911 immediately. . Non-Emergent Contact Non-Emergency issues call your: Primary Care Provider . . "Provider Documentation" section prepared by John Soto. . VTE Core Measure Inpt VTE Proph given/why not?: Enoxaparin (Lovenox)SQ
[2017-07-14 13:15] VITALS: BP 100/67; PULSE 57; TEMP 36.5; O2SAT 99
--- NOTE | 2017-07-14 13:18 | Progress Note ---
Internal Med Progress Note Date of Service: Jul 14, 2017. 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 not in distress ENT-Normal hearing Neck-no neck masses Lungs-Cta b/l no wheezing or crackles Heart-S1 and S2 heard regular No murmurs Abdomen-Soft Bowel sounds present Non tender No distension Extremities-No edema No erythema Neuro-alert and awake moves extremities Lab data as noted below. ASSESSMENT & PLAN: PULMONARY EMBOLISM (present on admission) Presented with pleuritic chest pain and SOB. D-dimer elevated. CTA chest shows segmental pulmonary embolism right upper lobe. Lower extremities Doppler negative for DVT. Probable provoked VTE due to recent travel. Oxygenating well. Hemodynamically stable. on Lovenox sq patient decided to go with Coumadin Routine cancer screening recommendations should be followed with pcp/heme/onco. Minimum of 3months of anticoagulation rn long term care Coumadin as per pcp/heme/onco based on further studies. started on Coumadin increase Coumadin to 10mg daily then 7.5mg inr 2.6 today gave Lovenox 120mg today discharging on Coumadin 6mg daily with close followup with [facility] Duration of Coumadin as per family doctor or heme/onco Influenza positive Fever cough leukopenia cxr unremarkable started on Tamiflu- to complete the course Chest pain more with deep breath troponin negative ekg consistent with pericarditis echo unremarkable d/c on ibuprofen made appointment with cardiology on Jul 28 at [facility] at 3:15pm DYSLIPIDEMIA On atorvastatin. MIGRAINE HEADACHES On propranolol and sumatriptan. discharged home Vital Signs: Date Time Temp Pulse Resp B/P (MAP) Pulse Ox O2 Delivery O2 Flow Rate FiO2 07/14/17 08:00 Room Air 07/14/17 07:44 36.5 57 18 100/67 (78) 99 Room Air 07/14/17 00:16 36.5 62 18 113/67 (82) 95 Room Air 07/14/17 00:00 Room Air 07/13/17 16:30 95 Room Air 07/13/17 15:36 36.9 58 20 105/71 (82) 95 Room Air Lab Results: Results Past 24 Hours Test 07/13/17 18:28 07/14/17 05:46 07/14/17 11:42 Range/Units Troponin I < 0.015 < 0.015 0-0.045 ng/ml White Blood Count 3.96 4.8-10.8 K/uL Red Blood Count 4.42 4.2-5.4 M/uL Hemoglobin 13.2 12.0-16.0 g/dL Hematocrit 40.3 37-47 % Mean Corpuscular Volume 91.2 80-100 fL Mean Corpuscular Hemoglobin 29.9 25-34 pg Mean Corpuscular Hemoglobin Concent 32.8 32-36 g/dl Platelet Count 217 130-400 K/uL Mean Platelet Volume 9.5 7.4-10.4 fL Neutrophils (%) (Auto) 43.0 % Lymphocytes (%) (Auto) 44.7 % Monocytes (%) (Auto) 9.8 % Eosinophils (%) (Auto) 2.0 % Basophils (%) (Auto) 0.5 % Neutrophils # (Auto) 1.70 1.4-6.5 K/uL Lymphocytes # (Auto) 1.77 1.2-3.4 K/uL Monocytes # (Auto) 0.39 0.11-0.59 K/uL Eosinophils # (Auto) 0.08 0-0.5 K/uL Basophils # (Auto) 0.02 0-0.2 K/uL RDW Standard Deviation 42.7 36.4-46.3 fL RDW Coefficient of Variation 12.9 11.5-14.5 % Immature Granulocyte % (Auto) 0.0 % Immature Granulocyte # (Auto) 0.00 0.00-0.02 K/uL Prothrombin Time 26.3 9.0-12.0 SECONDS Prothromb Time International Ratio 2.6 0.9-1.1 Sodium Level 141 136-145 mmol/L Potassium Level 4.1 3.5-5.1 mmol/L Chloride Level 106 98-107 mmol/L Carbon Dioxide Level 31 21-32 mmol/L Anion Gap 4.0 3-11 mmol/L Blood Urea Nitrogen 10 7-18 mg/dl Creatinine 0.77 0.60-1.20 mg/dl Est Creatinine Clear Calc Drug Dose 86.5 ml/min Estimated GFR () 102.9 Estimated GFR (Non- 88.8 BUN/Creatinine Ratio 12.4 10-20 Random Glucose 97 70-99 mg/dl Calcium Level 8.6 8.5-10.1 mg/dl Magnesium Level 2.3 1.8-2.4 mg/dl Erythrocyte Sedimentation Rate 30 0-21 mm/hr
--- NOTE | 2017-07-14 13:20 | Discharge Summary ---
Discharge Summary Date of Service Jul 14, 2017. Discharge Summary Admission Date: Jul 08, 2017 at 20:51 Discharge Date: Jul 14, 2017 Discharge Disposition: Home Principal Diagnosis: ACUTE PE INFLUENZA A PERICARDITIS? Secondary Diagnoses/Problems: (1) Dyslipidemia Status: Chronic (2) GERD (gastroesophageal reflux disease) Status: Chronic (3) Meningioma Status: Chronic (4) Migraine headache Status: Chronic Procedures: CTA CHEST: 1. A single filling defect is evident in a segmental artery to the right upper lobe, which is convincing for a pulmonary embolus. However, no additional emboli are evident. This is a very limited embolus burden. Short-term follow-up CTA could be considered. 2. Prominent mediastinal lymph nodes which are borderline pathologically enlarged. These may be reactive. Follow-up if clinically indicated. VENOUS DOPPLER: No evidence of deep venous thrombosis. ECHO: The left ventricle is normal in size. * The left ventricular wall motion is normal. * Ejection Fraction = 55-60%. * The right ventricular systolic function is normal. * The left atrial size is normal. * Right atrial size is normal. * Grossly normal valvular structure and function. Medication Reconciliation New Medications: Ibuprofen Tab (Motrin) 600 Mg Tab 1 TAB PO TID for 10 Days, #30 TAB Guaifenesin/Codeine (Robitussin-Ac Syrup) Syrp 5 ML PO Q6H PRN for Cough for 7 Days Oseltamivir Phosphate (Tamiflu) 75 Mg Cap 75 MG PO BID, #4 CAP Warfarin Sod (Coumadin) 6 Mg Tab 6 MG PO DAILY@16, #30 TAB 2 Refills Continued Medications: Atorvastatin (Lipitor) 10 Mg Tab 10 MG PO DAILY, TAB Pantoprazole (Protonix) 40 Mg Tab 40 MG PO DAILY, #30 TAB Propranolol Hcl (Propranolol Hcl Er) 80 Mg Cap 80 MG PO DAILY for 90 Days, #90 CAP 3 Refills Sumatriptan Succinate (Imitrex) 25 Mg Tab 50 MG PO UD PRN for Migraine, TAB TAKE 50MG AT THE ONSET OF MIGRAINE NOT TO EXCEED 4 TABLET IN A 24 HOUR PERIOD. Admission Information HPI (per Admitting provider): 52 YO female followed by Patrizia Lewis PA-C. History of GERD, dyslipidemia, and other problems noted below. Recently traveled from [place] by air. Yesterday developed midsternal chest pressure, worse with coughing or deep inspiration. Chest pain does not radiate. Feels SOB. Nonproductive cough; no hemoptysis. Experiencing sweats and possible low grade temp. Has mild pain in bilateral lower extremities. No history of cardiac disease. No history of thromboembolic disease. . Physical Exam (per Admitting): General Appearance: WD/WN, + mild distress Head: normocephalic, atraumatic Eyes: normal inspection, PERRL, EOMI, sclerae normal ENT: normal ENT inspection, hearing grossly normal, pharynx normal Neck: supple, no adenopathy, thyroid normal, trachea midline Respiratory/Chest: no respiratory distress, no accessory muscle use, + pertinent finding (mild wheezing, occasional cough) Cardiovascular: regular rate, rhythm, no edema, no gallop, no JVD, no murmur Abdomen/GI: normal bowel sounds, non tender, soft, no organomegaly, no pulsatile mass Extremities/Musculoskelatal: normal inspection, normal capillary refill, no pedal edema, + pertinent finding (mild calf tenderness) Neurologic/Psych: 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 D-dimer elevated. CTA chest shows segmental pulmonary embolism right upper lobe. Lower extremities Doppler negative for DVT. Probable provoked VTE due to recent travel. Oxygenating well. Hemodynamically stable. on Lovenox sq patient decided to go with Coumadin Routine cancer screening recommendations should be followed with pcp/heme/onco. 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 started on Coumadin increase Coumadin to 10mg daily then 7.5mg inr 2.6 today gave Lovenox 120mg today discharging on Coumadin 6mg daily with close followup with [facility] Duration of Coumadin as per family doctor or heme/onco Influenza positive Fever cough leukopenia cxr unremarkable started on Tamiflu- to complete the course Chest pain more with deep breath troponin negative ekg consistent with pericarditis echo unremarkable d/c on ibuprofen made appointment with cardiology on Jul 28 at [facility] at 3:15pm DYSLIPIDEMIA On atorvastatin. MIGRAINE HEADACHES On propranolol and sumatriptan. discharged home Total time spent on discharge = 35MINUTES This includes examination of the patient, discharge planning, medication reconciliation, and communication with other providers. Discharge Instructions Discharge Instructions Date of Service Jul 14, 2017. Admission Reason for Admission: Pulmonary Embolism Discharge Discharge Diagnosis / Problem: PULMONARY EMBOLISM, INFLUENZA A, PERICARDITIS? Discharge Goals Goal(s): Decrease discomfort, Improve function Activity Recommendations Activity Limitations: resume your previous activity . Instructions / Follow-Up Instructions / Follow-Up FOLLOWUP WITH FAMILY DOCTOR ( AT [facility]) ON Jun AT 10:45AM FOLLOWUP WITH CARDIOLOGY ( AT [facility]) O Jul AT 3:15PM.( FOR POSSIBLE INFLAMMATION OF HEART-PERICARDITIS). TO TAKE COUMADIN 6MG DAILY IN EVENING UNTIL FURTHER INSTRUCTIONS FROM COUMADIN CLINIC. LAB: PT/INR IN 3-4 DAYS AND FOLLOW RESULTS WITH COUMADIN CLINIC. BASED ON LABS FURTHER ADJUSTMENTS OF COUMADIN DOSING PER COUMADIN CLINIC.WILL NOTIFY COUMADIN CLINIC AND THEY WILL CALL YOU. IF YOU DONT GET CALL FROM COUMADIN CLINIC CHECK WITH YOUR FAMILY DOCTOR. TO BE ON COUMADIN AT LEAST FOR 3MONTHS. FURTHER DURATION OF COUMADIN PER FAMILY DOCTOR. Current Hospital Diet Patient's current hospital diet: AHA Diet (Heart Healthy) Discharge Diet Recommended Diet: AHA Diet (Heart Healthy) Pending Studies Studies pending at discharge: no Medical Emergencies . Who to Call and When: Medical Emergencies: If at any time you feel your situation is an emergency, please call 911 immediately. . Non-Emergent Contact Non-Emergency issues call your: Primary Care Provider . . "Provider Documentation" section prepared by John Soto. . VTE Core Measure Inpt VTE Proph given/why not?: Enoxaparin (Lovenox)SQ
[2017-07-14] MEDS ORDERED: ONDANSETRON INJ 2 MG/ML 2 ML VIAL IV. SCH (15:00)
[2017-07-14] MEDS ORDERED: WARFARIN SOD 6 MG TAB PO SCH (16:00)
== END 2017-07-14 14:30 | disposition home or self-care (01) | DRG 176 ==
LOC: C.EDB 16:17 → C.2E 20:51 → ENRESERV 21:01 → C.4E 07-09 10:01 → ENRESERV 07-09 10:24
PROVIDERS: ADMIT Hospitalist; ATTEND Internal Medicine
DX: I26.99 Other pulmonary embolism without acute cor pulmonale (principal); I31.9 Disease of pericardium, unspecified; J10.1 Influenza due to other identified influenza virus with other respiratory manifestations; E78.5 Hyperlipidemia, unspecified; G43.909 Migraine, unspecified, not intractable, without status migrainosus; K21.9 Gastro-esophageal reflux disease without esophagitis; Z82.49 Family history of ischemic heart disease and other diseases of the circulatory system; Z82.3 Family history of stroke; Z83.3 Family history of diabetes mellitus; Z83.511 Family history of glaucoma

== ENCOUNTER 2018-11-30 08:29 | Inpatient (IN) ==
--- OUTSIDE RECORDS SUMMARY | 2018-11-30 08:32 | External Medical Summary | Continuity of Care Document ---
:1965 Author Name Rosalina Brantley, Provider Address Unavailable Unavailable , Care Team Providers Name Role Phone Yoav Brantley, [email or web address] PCP, UNKNOWN Unavailable Unavailable Problems Active medical history not documented Allergies and Adverse Reactions Allergy history not documented Medications Medications not documented Procedures Procedures not documented Immunizations Immunizations not documented Plan of Treatment Planned Observations Planned Goals not documented Results No Known Results Results not documented
[2018-11-30] MEDS ORDERED: ALBUT/IPRATROP 3MG/0.5MG NEB 3 ML VIAL INH STA (08:45)
[2018-11-30 09:08] LABS: Basophils # (auto) 0.01 K/uL (0-0.2); Basophils % (auto) 0.3 %; Eosinophils # (auto) 0.01 K/uL (0-0.5); Eosinophils % (auto) 0.3 %; Hematocrit (blood only) 39.3 % (37-47); Hemoglobin 12.9 g/dL (12.0-16.0); Lymphocytes # (auto) 0.84 K/uL (1.2-3.4); Lymphocytes % (auto) 24.3 %; Mean Corpuscular Hgb Conc 32.8 g/dL (32-36); Mean Corpuscular Volume 89.5 fL (80-100); Mean Platelet Volume 9.2 fL (7.4-10.4); Monocytes # (auto) 0.28 K/uL (0.11-0.59); Monocytes % (auto) 8.1 %; Neutrophils # (auto) 2.31 K/uL (1.4-6.5); Platelet Count 206 K/uL (130-400); RDW Coefficient of Variation 13.3 % (11.5-14.5); RDW Standard Deviation 43.8 fL (36.4-46.3); Red Blood Count 4.39 M/uL (4.2-5.4); White Blood Count 3.45 K/uL (4.8-10.8)
--- NOTE | 2018-11-30 09:16 | Emergency Department Note ---
History of Present Illness General Chief complaint: Shortness of Breath/Dyspnea Stated complaint: pneumonia Time Seen by Provider: 11/30/18 08:39 History of Present Illness Maximum Pain Intensity: 10 This 53-year-old female presents the ER with chief complaint of shortness of breath and cough that started on Thursday. She also states that she has pain in the left lower chest when she is coughing. She denies any fever, head congestion, sore throat or ear pain. The patient was seen by her family physician yesterday and started on Z-Ruperto, Tessalon Perles and told to take Tylenol. She was informed that she had pneumonia although a chest x-ray was not obtained. The patient is here today because she has increased pain with coughing. The patient does have a history of pulmonary embolus. The patient denies any leg pain, recent travel or surgeries. The patient denies tobacco use. Home Medications Home Medications Medication Instructions Recorded Confirmed Type albuterol sulfate [Ventolin HFA] 2 puff INHALATION QID PRN 07/09/18 11/30/18 History pantoprazole [Protonix] 40 mg PO QAM 07/09/18 11/30/18 History sumatriptan succinate [Imitrex] 25 mg PO UD PRN 07/09/18 11/30/18 History benzonatate [Tessalon Perles] 100 mg PO TID PRN #20 cap 07/24/18 11/30/18 Rx prednisone 60 mg PO DAILY PRN 07/24/18 11/30/18 History acetaminophen [Tylenol Extra 500 mg PO Q6H PRN 11/30/18 11/30/18 History Strength] Allergies Allergy/AdvReac Type Severity Reaction Status Date / Time No Known Allergies Allergy Verified 11/30/18 09:25 Past Med/Surg History Medical History History of pulmonary embolus (PE) Social History Preferred Language: Burundian Feels Safe at Home: Yes Smoking Status: Never smoker Review of Systems A total of 10 systems reviewed and were otherwise negative Physical Exam Vital Signs Vital Signs - 24 hr 11/30/18 08:36 11/30/18 09:00 11/30/18 09:02 Temperature 36.8 C Temperature Source Oral Sepsis Recent Fever Within 48 Hours Yes Sepsis Action Taken by Nursing No Action Required Pulse Rate 95 H Pulse Rate [Right Apical] 92 H Respiratory Rate 22 18 Respiratory Effort / Characteristics Spontaneous Blood Pressure 148/81 H Blood Pressure [Right Arm] Blood Pressure Mean 103 Blood Pressure Mean [Right Arm] Blood Pressure Position Sitting Pulse Oximetry 98 95 94 Oxygen Delivery Method Room Air Room Air Room Air 11/30/18 09:40 11/30/18 10:41 Temperature Temperature Source Sepsis Recent Fever Within 48 Hours Sepsis Action Taken by Nursing Pulse Rate Pulse Rate [Right Apical] 86 86 Respiratory Rate 16 18 Respiratory Effort / Characteristics Blood Pressure Blood Pressure [Right Arm] 122/61 113/66 Blood Pressure Mean Blood Pressure Mean [Right Arm] 81 81 Blood Pressure Position Pulse Oximetry 98 97 Oxygen Delivery Method Room Air Room Air PHYSICAL EXAM: Vital Signs were reviewed temperature was normal at 36.8, blood pressure 148/81 pulse 92.: Reviewed Nurse's notes and agree. Oxygen saturation is 98 % on room air which is normal . GENERAL: 53 year-old female appears in no acute distress. MENTAL STATUS: Alert, oriented, coherent. EARS: Canals clear. TMs good light reflex, no erythema or fluid level noted. NOSE: Nasal mucosa with moderate erythema engorgement. PHARYNX: No erythema, no edema noted. No exudate noted. Airway is adequate. NECK: Supple, non-tender. No lymphadenopathy noted. LUNGS: Clear to auscultation without wheezes rales or rhonchi. CARDIAC: Slightly tachycardic at a rate of 92 .normal rhythm without murmur. SKIN: No rashes noted. LOWER EXTREMITIES: Calves nontender to palpation. No cyanosis or edema noted. Course Administered Medications Ioversol (Optiray 320 125ml) 121 ml IV ONCE PRN PRN Reason: Interaction Checking Stop: 12/04/18 09:47 Last Admin: 11/30/18 09:53 Dose: 93 ml Documented by: [id number] Admin: 11/30/18 09:49 Dose: 93 ml Documented by: [id number] Discontinued Medications Albuterol (Duoneb) 3 ml INH NOW STA Stop: 11/30/18 08:46 Last Admin: 11/30/18 08:58 Dose: 3 ml Documented by: [id number] Ondansetron HCl (Zofran) 4 mg IV NOW STA Stop: 11/30/18 10:39 Last Admin: 11/30/18 10:42 Dose: 4 mg Documented by: [id number] Potassium Chloride (Klor-Con M10) 20 meq PO NOW STA Stop: 11/30/18 09:41 Last Admin: 11/30/18 10:36 Dose: 20 meq Documented by: [id number] Medical Decision Making Differential Diagnosis Pleuritic chest pain, pneumonia, PE, viral URI Medical Records Attestation: I reviewed the patient's medical records. Home Medications Current Medication List: was personally reviewed by me Laboratory Data Attestation: I reviewed the patient's lab results. Result diagrams: 11/30/18 08:57 11/30/18 08:57 Lab Results 11/30/18 11/30/18 11/30/18 Range/Units 08:57 08:57 08:57 WBC 3.45 L (4.8-10.8) K/uL RBC 4.39 (4.2-5.4) M/uL Hgb 12.9 (12.0-16.0) g/dL Hct 39.3 (37-47) % MCV 89.5 (80-100) fL MCH 29.4 (25-34) pg MCHC 32.8 (32-36) g/dL RDW Std Deviation 43.8 (36.4-46.3) fL RDW Coeff of Sharon 13.3 (11.5-14.5) % Plt Count 206 (130-400) K/uL MPV 9.2 (7.4-10.4) fL Immature Gran % (Auto) 0.0 % Neut % (Auto) 67.0 % Lymph % (Auto) 24.3 % Teller % (Auto) 8.1 % Eos % (Auto) 0.3 % Baso % (Auto) 0.3 % Immature Gran # (Auto) 0.00 (0.00-0.02) K/uL Neut # (Auto) 2.31 (1.4-6.5) K/uL Lymph # (Auto) 0.84 L (1.2-3.4) K/uL Teller # (Auto) 0.28 (0.11-0.59) K/uL Eos # (Auto) 0.01 (0-0.5) K/uL Baso # (Auto) 0.01 (0-0.2) K/uL PT 10.2 (9.0-12.0) Seconds INR 1.0 (0.9-1.1) APTT 27.1 (21.0-31.0) Seconds PTT Ratio 1.0 POC D-Dimer (0-450) ng/mlFEU Sodium 139 (136-145) mmol/L Potassium 3.1 L (3.5-5.1) mmol/L Chloride 104 (98-107) mmol/L Carbon Dioxide 29 (21-32) mmol/L Anion Gap 6.0 (3-11) BUN 10 (7-18) mg/dl Creatinine 0.94 (0.6-1.2) mg/dl Est Cr Clr Drug Dosing 71.6 ml/min Est GFR ( Amer) 80.3 Est GFR (Non-Af Amer) 69.3 BUN/Creatinine Ratio 10.6 (10-20) Glucose 107 H (70-99) mg/dl Calcium 8.6 (8.5-10.1) mg/dl Total Bilirubin 0.3 (0.2-1) mg/dl AST 45 H (15-37) U/L ALT 36 (12-78) U/L Alkaline Phosphatase 134 H (45-117) U/L Total Protein 7.6 (6.4-8.2) gm/dl Albumin 3.6 (3.4-5.0) gm/dl Globulin 4.0 (2.5-4.0) gm/dl Albumin/Globulin Ratio 0.9 (0.9-2) 11/30/18 Range/Units 09:03 WBC (4.8-10.8) K/uL RBC (4.2-5.4) M/uL Hgb (12.0-16.0) g/dL Hct (37-47) % MCV (80-100) fL MCH (25-34) pg MCHC (32-36) g/dL RDW Std Deviation (36.4-46.3) fL RDW Coeff of Sharon (11.5-14.5) % Plt Count (130-400) K/uL MPV (7.4-10.4) fL Immature Gran % (Auto) % Neut % (Auto) % Lymph % (Auto) % Teller % (Auto) % Eos % (Auto) % Baso % (Auto) % Immature Gran # (Auto) (0.00-0.02) K/uL Neut # (Auto) (1.4-6.5) K/uL Lymph # (Auto) (1.2-3.4) K/uL Teller # (Auto) (0.11-0.59) K/uL Eos # (Auto) (0-0.5) K/uL Baso # (Auto) (0-0.2) K/uL PT (9.0-12.0) Seconds INR (0.9-1.1) APTT (21.0-31.0) Seconds PTT Ratio POC D-Dimer > 450 H* (0-450) ng/mlFEU Sodium (136-145) mmol/L Potassium (3.5-5.1) mmol/L Chloride (98-107) mmol/L Carbon Dioxide (21-32) mmol/L Anion Gap (3-11) BUN (7-18) mg/dl Creatinine (0.6-1.2) mg/dl Est Cr Clr Drug Dosing ml/min Est GFR ( Amer) Est GFR (Non-Af Amer) BUN/Creatinine Ratio (10-20) Glucose (70-99) mg/dl Calcium (8.5-10.1) mg/dl Total Bilirubin (0.2-1) mg/dl AST (15-37) U/L ALT (12-78) U/L Alkaline Phosphatase (45-117) U/L Total Protein (6.4-8.2) gm/dl Albumin (3.4-5.0) gm/dl Globulin (2.5-4.0) gm/dl Albumin/Globulin Ratio (0.9-2) Imaging Data Attestation: I personally reviewed and interpreted this imaging study as follows: My Impression: Chest x-ray revealed multifocal pneumonia Radiologist's Impression: XR chest 2V routine HISTORY: Dyspnea COMPARISON: Chest 07/24/2018. FINDINGS: Multifocal bilateral airspace opacities most pronounced within the left upper lobe are again noted. This likely represents a multifocal pneumonia. No pneumothorax. No pleural effusions. The heart is normal in size. IMPRESSION: Multifocal bilateral airspace opacities which favor a pneumonia. Follow-up recommended to ensure resolution. Electronically signed by: Mike Ingram M.D. 11/30/2018 10:55 AM Dictated: 11/30/18 1054 Transcribed: 11/30/[address] ANGIOGRAPHY OF THE CHEST, PULMONARY EMBOLUS PROTOCOL CLINICAL HISTORY: Left-sided chest pain. Shortness of breath. COMPARISON STUDY: Chest CT July 09, 2018. Chest radiograph July 24, 2018. TECHNIQUE: Following IV administration of 93 mL of Optiray-320, helical axial images of the chest were obtained utilizing the pulmonary embolus protocol. Maximal intensity projections and sagittal and coronal reformats were viewed on an independent 3D workstation. IV contrast was administered without complication. Automated exposure control was utilized for the study. A dose lowering technique was utilized adhering to the principles of ALARA. CT DOSE: 539.20 mGycm FINDINGS: No pulmonary emboli are identified. The size of the heart is at the upper limits of normal. A few prominent mediastinal lymph nodes are probably reactive. There is no pericardial effusion. The central airways are patent. There is no pneumothorax or pleural effusion. There is moderate left upper lobe consolidation. There is mild consolidation within the left lower lobe as well as the right upper lobe. There is no cavitation. No central obstructing mass is present. Bony thorax is unremarkable. Upper abdomen is also unremarkable. IMPRESSION: 1. No pulmonary emboli identified. 2. Moderate left upper lobe consolidation with mild left lower lobe and right upper lobe consolidation. The findings favor multifocal pneumonia. Electronically signed by: Keyur Freedman M.D. 11/30/2018 10:30 AM Blood Pressure Blood Pressure Findings: Elevated blood pressure Blood Pressure Disposition: elevated BP felt to be situational MDM Narrative The patient was evaluated. The patient was placed on a monitor and continuous pulse ox. IV access was obtained. The patient was given a DuoNeb. CBC and differential, renal profile, LFTs and lipase levels were ordered. Coags were ordered, [id number] d-dimer was ordered. Chest x-ray was ordered interpreted by the radiologist and myself as above with left upper and lower lobe pneumonia as well as right upper lobe infiltrate.. The patient was given Toradol 60 mg for pain. The patient's labs are reviewed. White count was normal. The patient's potassium was low at 3.1 and therefore she was given K-Dur 20 milliequivalents p.o. The patient was given Zofran 4 mg IV push for associated nausea since the patient did not eat and got sick on the potassium.. PT and INR were normal. [id number] d-dimer was greater than [address] of the chest was ordered and interpreted by the radiologist as above without any evidence of PE but there was moderate consolidation in the left upper lobe and mild consolidation in the left lower lobe and right upper lobe. The patient was independently evaluated by Dr. Mckenzie who agrees with treatment plan. Hosp italist was consulted for admission. Impression & Plan Community acquired pneumonia Discharge Plan Visit Data Chief Complaint: Shortness of Breath/Dyspnea Stated Complaint: pneumonia ED Provider: Alexis Mckenzie ED Midlevel Provider: Vilma Qureshi Discharge Problem: Community acquired pneumonia Patient Disposition: Being Evaluated by Hospitalist Condition: Good Forms Stand Alone Forms: [employer] Prescriptions Prescriptions: No Action sumatriptan succinate [Imitrex] 25 mg tablet 25 mg PO UD PRN (Reason: Migraine Headache) RF: 0 pantoprazole [Protonix] 40 mg tablet,delayed release (DR/EC) 40 mg PO QAM RF: 0 albuterol sulfate [Ventolin HFA] 90 mcg/actuation HFA aerosol inhaler 2 puff Inhalation QID PRN (Reason: Shortness Of Breath Or Wheezing) RF: 0 benzonatate [Tessalon Perles] 100 mg capsule 100 mg PO TID PRN (Reason: cough) Qty: 20 RF: 0 prednisone 20 mg tablet 60 mg PO DAILY PRN (Reason: prn) RF: 0 acetaminophen [Tylenol Extra Strength] 500 mg Tablet 500 mg PO Q6H PRN (Reason: pain/fever) RF: 0 Referrals Referrals: Patrizia Lewis PA-C [Primary Care Provider] -
[2018-11-30 09:19] LABS: Partial Thromboplastin Time 27.1 Seconds (21.0-31.0); Prothrombin Time 10.2 Seconds (9.0-12.0)
[2018-11-30 09:25] LABS: Albumin Level 3.6 gm/dl (3.4-5.0); BUN Creatinine Ratio 10.6 (10-20); Calcium 8.6 mg/dl (8.5-10.1); Creatinine Clr Calc Pharmacy 71.6 ml/min; Est GFR (African American) 80.3; Est GFR (Non-African American) 69.3; Potassium 3.1 mmol/L (3.5-5.1)
[2018-11-30 09:28] LABS: Albumin Globulin Ratio 0.9 (0.9-2); Bilirubin,Total 0.3 mg/dl (0.2-1); Total Protein 7.6 gm/dl (6.4-8.2)
[2018-11-30] MEDS ORDERED: POTASSIUM CHLORIDE 10 MEQ TABCR PO STA (09:40)
[2018-11-30] MEDS: OPTIRAY 320 125ml IV PRN ×2 (09:49→09:53)
--- NOTE | 2018-11-30 10:31 | CT Scan Report ---
CT ANGIOGRAPHY OF THE CHEST, PULMONARY EMBOLUS PROTOCOL CLINICAL HISTORY: Left-sided chest pain. Shortness of breath. COMPARISON STUDY: Chest CT July 09, 2018. Chest radiograph July 24, 2018. TECHNIQUE: Following IV administration of 93 mL of Optiray-320, helical axial images of the chest wer e obtained utilizing the pulmonary embolus protocol. Maximal intensity projections and sagittal and coronal reformats were viewed on an independent 3D workstation. IV contrast was administered without complication. Automated exposure control was utilized for the study. A dose lowering technique was utilized adhering to the principles of ALARA. CT DOSE: 539.20 mGycm FINDINGS: No pulmonary emboli are identified. The size of the heart is at the upper limits of normal . A few prominent mediastinal lymph nodes are probably reactive. There is no pericardial effusion. Th e central airways are patent. There is no pneumothorax or pleural effusion. There is moderate left up per lobe consolidation. There is mild consolidation within the left lower lobe as well as the right u pper lobe. There is no cavitation. No central obstructing mass is present. Bony thorax is unremarkabl e. Upper abdomen is also unremarkable. IMPRESSION: 1. No pulmonary emboli identified. 2. Moderate left upper lobe consolidation with mild left lower lobe and right upper lobe consolidatio n. The findings favor multifocal pneumonia. Electronically signed by: Keyur Freedman M.D. 11/30/2018 10:30 AM
[2018-11-30] MEDS ORDERED: ONDANSETRON INJ 2 MG/ML 2 ML VIAL IV STA (10:38)
--- NOTE | 2018-11-30 10:56 | XRay Report ---
XR chest 2V routine HISTORY: Dyspnea COMPARISON: Chest 07/24/2018. FINDINGS: Multifocal bilateral airspace opacities most pronounced within the left upper lobe are agai n noted. This likely represents a multifocal pneumonia. No pneumothorax. No pleural effusions. The he art is normal in size. IMPRESSION: Multifocal bilateral airspace opacities which favor a pneumonia. Follow-up recommended to ensure reso lution. Electronically signed by: Mike Ingram M.D. 11/30/2018 10:55 AM
--- NOTE | 2018-11-30 11:21 | Emergency Department Note ---
ED Visit Note I have personally seen and evaluated the patient with the physician media center assistant. I agree with the diagnostic/management decisions and have personally been involved in these decisions and agree with the diagnosis. .
--- NOTE | 2018-11-30 12:22 | History & Physical Report ---
Date of Service November 30, 2018 Assessment & Plan (1) Community acquired pneumonia: Pt presented with cough, fever, SOB x 4 days. C/O nausea and vomiting. Yesterday seen by PCP and started on Zpak and tessalon perles. In ER pt afebrile, P: 95, R: 22, BP: 148/81, 98% on RA. WBC: 3.45, H/H: 12.9 /39.3, POC D-dimer>450 CXR: Multifocal bilateral airspace opacities which favor a pneumonia CTA CHEST: No pulmonary emboli identified. Moderate left upper lobe consolidation with mild left lower lobe and right upper lobe consolidation. The findings favor multifocal pneumonia. -In ER was given albuterol nebulizer treatment and zofran -pending influenza swab -pending lactic acid, procalcitonin, blood cultures -IVF -Levaquin -incentive spirometry -monitor cbc, bmp (2) Hypokalemia: K:3.1 probable secondary to decreased oral intake and vomiting -In ER given potassium chloride 20meq po -replace and monitor (3) Migraine headache: No current IZQUIERDO -continue propranolol, imitrex prn (4) ALEXIS (obstructive sleep apnea): -CPAP HS (5) GERD (gastroesophageal reflux disease): -continue PPI (6) Dyslipidemia: -continue statin DVT Prophylaxis -ambulate Full ode as per discussion with pt Follows with Patrizia Lewis PA-C for routine care Pt was seen with Dr Latham. See addendum History of Present Illness Chief Complaint: Cough, SOB Primary Care Provider: Patrizia Lewis PA-C Pt is 53 y/o F with PMH migraine IZQUIERDO, ALEXIS, HLD, GERD presented to ER with c/o cough x 4 days. She is Turkmen-speaking and rf test engineer service used. Patient states started with productive cough, fever, shortness of breath started on 11/26/2018. Patient states tried using her albuterol inhaler without much relief. She was seen by PCP on 11/29/2018 and started on Z-Ruperto and Tessalon Perles for suspected pneumonia. Patient reports having left lower chest pain/LUQ pain aggravated with coughing and deep breathing. Reports she has had intermittent vomiting. She has been eating and drinking very little. Patient complains of intermittent dizziness aggravated with coughing. She has a history of PE in the past. Patient reports a advent contact with URI symptoms. Denies recent travel. Reports had her influenza vaccine this season. Denies diarrhea, constipation, IZQUIERDO, syncope, vision changes, neck pain, palpitations, sore throat, rhinorrhea, other abdominal pain, paresthesias, extremity edema, rashes, urinary symptoms. Allergies Allergy/AdvReac Type Severity Reaction Status Date / Time No Known Allergies Allergy Verified 11/30/18 09:25 Home Medications Home Medications Medication Instructions Recorded Confirmed Type albuterol sulfate [Ventolin HFA] 2 puff INHALATION QID PRN 07/09/18 11/30/18 History pantoprazole [Protonix] 40 mg PO QAM 07/09/18 11/30/18 History sumatriptan succinate [Imitrex] 25 mg PO UD PRN 07/09/18 11/30/18 History benzonatate [Tessalon Perles] 100 mg PO TID PRN #20 cap 07/24/18 11/30/18 Rx acetaminophen [Tylenol Extra 500 mg PO Q6H PRN 11/30/18 11/30/18 History Strength] atorvastatin 10 mg PO HS 11/30/18 11/30/18 History azithromycin 250 mg PO UD 11/30/18 11/30/18 History duloxetine 40 mg PO DAILY 11/30/18 11/30/18 History propranolol 80 mg PO DAILY 11/30/18 11/30/18 History riboflavin (vitamin B2) 400 mg PO DAILY 11/30/18 11/30/18 History Past Med/Surg History Medical History ALEXIS (obstructive sleep apnea) (Chronic) Migraine headache (Chronic) Pulmonary embolism (Resolved) Dyslipidemia (Chronic) Meningioma (Chronic) GERD (gastroesophageal reflux disease) (Chronic) History of pulmonary embolus (PE) Surgical History Status post hysterectomy (Chronic) Family History Mother Diabetes Stroke Hypertension Sister Thyroid disorder Social History Preferred Language: Turkmen Communication Ability: Effective Communication Tools: IPad Porcelain Enamel Installer Required: Yes and Voice Beliefs That Will Affect Care: None Current Living Situation: Family Other Information That Helps Us Care for You: No Feels Safe at Home: Yes Safety Concerns: Feels Safe At This Time Smoking Status: Never smoker Hx Alcohol Use: No Hx Substance Use: No Review of Systems Review of Systems: All systems reviewed & are unremarkable except as noted in HPI & below Physical Exam Physical Exam: General: no acute distress, non-toxic appearance, WDWN Head: normocephalic, atraumatic Eyes: PERRL, EOM's intact, conjunctiva non-injected, anicteric ENT: normal inspection external ears, nose, mucous membranes dry Neck: supple, trachea midline Lungs: no respiratory distress, +coughing, +rales LLL, +rhonchi to RLL, RENAN CV: RRR, no murmur, no pretibial edema Chest: no rashes, +tenderness to palpation left anterior chest and lower chest and ribs Abd: normal BS, soft, +tenderness to palpation LUQ without rebound or guarding, no other abdominal tenderness to palpation Ext: no cyanosis, no calf tenderness Neuro: A&O x 3, no focal deficits noted, normal affect Skin: warm, dry Results & Data Vital Signs (Past 12 Hours) Vital Signs Temp Pulse Pulse Resp BP BP Pulse Ox 11/30/18 10:41 86 18 113/66 97 11/30/18 09:40 86 16 122/61 98 11/30/18 09:02 94 11/30/18 09:00 92 H 18 95 11/30/18 08:36 36.8 C 95 H 22 148/81 H 98 Laboratory Results Short CBC 11/30/18 Range/Units 08:57 WBC 3.45 L (4.8-10.8) K/uL Hgb 12.9 (12.0-16.0) g/dL Hct 39.3 (37-47) % Plt Count 206 (130-400) K/uL BMP 11/30/18 08:57 Sodium 139 Potassium 3.1 L Chloride 104 Carbon Dioxide 29 BUN 10 Creatinine 0.94 Glucose 107 H Calcium 8.6 Liver Function 11/30/18 Range/Units 08:57 Total Bilirubin 0.3 (0.2-1) mg/dl AST 45 H (15-37) U/L ALT 36 (12-78) U/L Alkaline Phosphatase 134 H (45-117) U/L Albumin 3.6 (3.4-5.0) gm/dl Diagnostic Findings CXR: IMPRESSION: Multifocal bilateral airspace opacities which favor a pneumonia. Follow-up recommended to ensure resolution. CTA CHEST: IMPRESSION: 1. No pulmonary emboli identified. 2. Moderate left upper lobe consolidation with mild left lower lobe and right upper lobe consolidation. The findings favor multifocal pneumonia. Supervising Physician Co-Signing Physician Notes ATTENDING ADDENDUM: Patient seen and examined, care coordinated with Kayla Soto PA-C This is a 53-year-old female Turkmen-speaking, presented to the ER with productive cough, fever since last Thursday, CT chest shows multifocal pneumonia No evidence of sepsis, Community-acquired pneumonia: Blood culture, sputum culture ordered, Empiric antibiotic with IV Levaquin Can be changed to oral in next 24 to 48 hours depending on clinical improvement Patient is hemodynamically stable to be admitted to medical floor, vitals BP 110/74 heart rates 95/respiratory 18/temperature 37.4, patient is 96% room air Rate for IV fluids, as patient reports of poor appetite, very decreased p.o. intake for last 2 to 3 days, Supplemental potassium oral added for borderline low potassium level 3.1 Repeat labs ordered in a.m. CODE STATUS discussed with patient via rf test engineer: Full code DVT prophylaxis: Low risk, patient is at baseline independent/ambulatory SCD and teds Patient is encouraged to ambulate Disposition: Expected to be discharged home when medically stable, medicine follow-up with Patrizia Lewis PA-C at [facility] Please refer to further documentation by Heidi Soto PA-C for discussion of other chronic issues Whitley Latham MD (1) Community acquired pneumonia Laterality: left Lung location: upper lobe of lung Qualified Code(s): J18.1 - Lobar pneumonia, unspecified organism
[2018-11-30] MEDS ORDERED: POTASSIUM CHLORIDE 20 MEQ TABCR PO STA (12:51)
[2018-11-30 13:00] LABS: Influenza A virus by PCR Neg for Influ A (Neg); Influenza B virus by PCR Neg for Influ B (Neg)
[2018-11-30] MEDS: LEVOFLOXACIN/D5W 750 MG/150 ML BAG IV SCH (13:30)
[2018-11-30] MEDS ORDERED: ACETAMINOPHEN 500 MG TAB PO PRN (14:18)
[2018-11-30] MEDS ORDERED: ALUMINUM/MAGNESIUM SUSP 30 ML UDC PO PRN (14:18)
[2018-11-30] MEDS ORDERED: SUMAtriptan succinate 25 MG TAB PO PRN (14:18)
[2018-11-30] MEDS ORDERED: POLYETHYLENE (MIRALAX) 17 GM PACK PO PRN (14:18)
[2018-11-30] MEDS ORDERED: ALBUTEROL HFA 8 GM INHALER INH PRN (14:18)
[2018-11-30] MEDS ORDERED: MAGNESIUM HYDROXIDE SUSP 30 ML UDC PO PRN (14:18)
[2018-11-30] MEDS: LACTATED RINGER'S 1,000 ML IV SCH ×2 (15:35→23:37)
[2018-11-30] MEDS: KETOROLAC TROMETHAMINE 15 MG/ML VIAL IV PRN ×2 (15:51→21:58)
[2018-11-30] MEDS: ONDANSETRON INJ 2 MG/ML 2 ML VIAL IV PRN ×2 (15:51→22:00)
[2018-11-30] MEDS: BENZONATATE 100 MG CAPSULE PO PRN (16:41)
[2018-11-30] MEDS: ATORVASTATIN 10 MG TAB PO SCH (20:39)
[2018-11-30] MEDS: GUAIFENESIN/CODEINE 100MG/10MG 5ML UDC PO PRN (20:47)
[2018-11-30] MEDS: ACETAMINOPHEN 325 MG TAB PO PRN (23:40)
[2018-12-01] MEDS: ONDANSETRON INJ 2 MG/ML 2 ML VIAL IV PRN ×3 (06:56→17:19)
[2018-12-01 07:40] LABS: Hematocrit (blood only) 35.9 % (37-47); Hemoglobin 11.9 g/dL (12.0-16.0); Mean Corpuscular Hgb Conc 33.1 g/dL (32-36); Mean Corpuscular Volume 88.4 fL (80-100); Mean Platelet Volume 9.3 fL (7.4-10.4); Platelet Count 190 K/uL (130-400); RDW Coefficient of Variation 13.3 % (11.5-14.5); RDW Standard Deviation 43.2 fL (36.4-46.3); Red Blood Count 4.06 M/uL (4.2-5.4); White Blood Count 3.45 K/uL (4.8-10.8)
[2018-12-01] MEDS: DULOXETINE HCL 20 MG CAP PO SCH (07:46)
[2018-12-01] MEDS: PANTOprazole 40 MG TAB PO SCH (07:46)
[2018-12-01] MEDS: PROPRANOLOL HCL LA 80 MG CAPCR PO SCH (07:46)
[2018-12-01] MEDS: BENZONATATE 100 MG CAPSULE PO PRN (07:46)
[2018-12-01] MEDS ORDERED: PROMETHAZINE HCL 12.5 MG in SODIUM CHLORIDE 0.9% 50 ML IV PRN (07:57)
[2018-12-01] MEDS ORDERED: PROMETHAZINE HCL 12.5 MG in SODIUM CHLORIDE 0.9% 50 ML IV STA (07:57)
--- NOTE | 2018-12-01 08:03 | XRay Report ---
XR chest 1V portable CLINICAL HISTORY: PNEUMONIA COMPARISON STUDY: Chest radiograph and chest CT November 30, 2018. FINDINGS: Right upper lung airspace opacity has slightly increased. Extensive left lung airspace opac ity has progressed. There is no pneumothorax or pleural effusion. Cardiomediastinal silhouette is sta ble. IMPRESSION: Increase in extensive left lung and right upper lobe airspace opacity consistent with mu ltifocal pneumonia. Electronically signed by: Keyur Freedman M.D. 12/01/2018 8:01 AM
[2018-12-01 08:08] LABS: BUN Creatinine Ratio 9.9 (10-20); Calcium 8.3 mg/dl (8.5-10.1); Creatinine Clr Calc Pharmacy 78.2 ml/min; Est GFR (African American) 89.4; Est GFR (Non-African American) 77.1; Potassium 3.9 mmol/L (3.5-5.1)
[2018-12-01] MEDS ORDERED: NON-FORMULARY MEDICATION (Riboflavin (Vitamin B2) 400 MG) PO SCH (09:00)
[2018-12-01] MEDS: LACTATED RINGER'S 1,000 ML IV SCH (10:11)
[2018-12-01] MEDS: KETOROLAC TROMETHAMINE 15 MG/ML VIAL IV PRN (13:14)
[2018-12-01] MEDS: GUAIFENESIN/CODEINE 100MG/10MG 5ML UDC PO PRN (13:14)
[2018-12-01] MEDS: LEVOFLOXACIN/D5W 750 MG/150 ML BAG IV SCH (13:17)
--- NOTE | 2018-12-01 18:08 | Hospitalist Progress Note ---
Date of Service December 01, 2018 Assessment & Plan (1) Community acquired pneumonia: Continues to have cough, feels very poorly stated persistent nausea CXR: Multifocal bilateral airspace opacities which favor a pneumonia CTA CHEST: No pulmonary emboli identified. Moderate left upper lobe consol idation with mild left lower lobe and right upper lobe consolidation. The findings favor multifocal pneumonia. Antibiotic changed to Unasyn, added doxycycline, appreciate input from ID (2) Hypokalemia: Corrected (3) Migraine headache: No current IZQUIERDO -continue propranolol, imitrex prn (4) ALEXIS (obstructive sleep apnea): -CPAP HS (5) GERD (gastroesophageal reflux disease): -continue PPI (6) Dyslipidemia: -continue statin DVT Prophylaxis -ambulate Disposition: Expect to be discharged home when medically stable Subjective Complains of feeling nauseous, poor appetite, has persistent cough, acid with chest pain, afebrile Physical Exam Constitutional: WD/WN, vitals as above + acute distress (Due to cough and nausea) Eyes: PERRL, conjunctivae normal, anicteric sclerae ENMT: external ear and nose normal, oropharynx normal Neck: trachea midline, no thyromegaly neck nontender Respiratory: + cough Auscultation: + rales and + rhonchi Cardiovascular: Rate/Rhythm: regular rate and regular rhythm Heart Sounds: normal S1 and normal S2; no gallop, no murmur and no cardiac rub Vessels: normal peripheral pulses; no JVD Gastrointestinal (Abdomen): normal bowel sounds, soft, nontender, no hepatosplenomegaly Musculoskeletal: no cyanosis or clubbing, extremities motor strength 5/5 Spine: thoracic spine normal to inspection and lumbar spine normal to inspection; no cervical spinal tenderness Skin: no rashes, warm and dry normal turgor; no lesions Neurologic: patellar DTR's 2+ bilat, sensation intact no focal motor deficits Psychiatric: A+Ox3, euthymic affect Orientation: cooperative Lymphatic: no cervical or axillary lymphadenopathy no inguinal lymphadenopathy Results & Data Vital Signs (Past 12 Hours) Vital Signs Temp Pulse Resp BP BP Pulse Ox 12/01/18 15:37 36.9 C 75 19 96/62 L 90 12/01/18 07:37 37.1 C 88 16 127/82 93 (1) Community acquired pneumonia Laterality: left Lung location: upper lobe of lung Qualified Code(s): J18.1 - Lobar pneumonia, unspecified organism
[2018-12-01] MEDS: AMPICILLIN/SULBACTAM SOD 1,500 MG in 0.9 % SODIUM CHLORIDE 100 ML IV SCH (19:11)
[2018-12-01] MEDS: ATORVASTATIN 10 MG TAB PO SCH (20:51)
[2018-12-02] MEDS: AMPICILLIN/SULBACTAM SOD 1,500 MG in 0.9 % SODIUM CHLORIDE 100 ML IV SCH ×4 (00:02→19:09)
[2018-12-02] MEDS: KETOROLAC TROMETHAMINE 15 MG/ML VIAL IV PRN (00:07)
[2018-12-02] MEDS: ONDANSETRON INJ 2 MG/ML 2 ML VIAL IV PRN ×2 (00:07→08:01)
[2018-12-02] MEDS: GUAIFENESIN/CODEINE 100MG/10MG 5ML UDC PO PRN ×3 (00:07→18:28)
[2018-12-02] MEDS: PANTOprazole 40 MG TAB PO SCH (08:03)
[2018-12-02] MEDS: PROPRANOLOL HCL LA 80 MG CAPCR PO SCH (08:03)
[2018-12-02] MEDS: DULOXETINE HCL 20 MG CAP PO SCH (08:04)
--- NOTE | 2018-12-02 10:32 | Infectious Disease Consult ---
Date of Consultation December 02, 2018 Assessment & Plan (1) Community acquired pneumonia: 53 yo female with multifocal CAP, low procalcitonin and low WBC speak against typical bacterial infections. Will sends studies for Legionella and Mycoplasma, and will add doxycycline for atypical coverage. Will follow. History of Present Illness Reason for Consultation: Multifocal pneumonia Attending Physician: Whitley Latham MD History of Present Illness 53-year-old female with history of hyperlipidemia, obstructive sleep apnea, GERD, prior episode of pulmonary emboli, who was admitted to the hospital with 4-day history of progressively worsening cough, some shortness of breath, fever and chills, left-sided chest pain made worse with deep breath or cough. She was seen as an outpatient and started on azithromycin but symptoms progressively worsen, she came to the emergency room where she was found down chest x-ray and CT scan to have evidence of multifocal pneumonia. She has been started on IV Unasyn. Cultures are pending. Has had several episodes of nausea and vomiting from complaints of weakness and anorexia. Has had contacts with several people with upper respiratory tract infections. Other significant travel or exposure history. Allergies Allergy/AdvReac Type Severity Reaction Status Date / Time No Known Allergies Allergy Verified 11/30/18 09:25 Home Medications Home Medications Medication Instructions Recorded Confirmed Type albuterol sulfate [Ventolin HFA] 2 puff INHALATION QID PRN 07/09/18 11/30/18 History pantoprazole [Protonix] 40 mg PO QAM 07/09/18 11/30/18 History sumatriptan succinate [Imitrex] 25 mg PO UD PRN 07/09/18 11/30/18 History benzonatate [Tessalon Perles] 100 mg PO TID PRN #20 cap 07/24/18 11/30/18 Rx acetaminophen [Tylenol Extra 500 mg PO Q6H PRN 11/30/18 11/30/18 History Strength] atorvastatin 10 mg PO HS 11/30/18 11/30/18 History azithromycin 250 mg PO UD 11/30/18 11/30/18 History duloxetine 40 mg PO DAILY 11/30/18 11/30/18 History propranolol 80 mg PO DAILY 11/30/18 11/30/18 History riboflavin (vitamin B2) 400 mg PO DAILY 11/30/18 11/30/18 History Patient History Medical History ALEXIS (obstructive sleep apnea) (Chronic) Migraine headache (Chronic) Pulmonary embolism (Resolved) Dyslipidemia (Chronic) Meningioma (Chronic) GERD (gastroesophageal reflux disease) (Chronic) History of pulmonary embolus (PE) Surgical History Status post hysterectomy (Chronic) Family History Mother Diabetes Stroke Hypertension Sister Thyroid disorder Social History Preferred Language: Nigerien Communication Ability: Effective Communication Tools: IPad Hotel 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: Yes and Voice Beliefs That Will Affect Care: None Current Living Situation: Family Other Information That Helps Us Care for You: No Feels Safe at Home: Yes Safety Concerns: Feels Safe At This Time Smoking Status: Never smoker Hx Alcohol Use: No Hx Substance Use: No Review of Systems Review of Systems: All systems reviewed & are unremarkable except as noted in HPI & below Physical Exam Constitutional: WD/WN, vitals as above comfortable; no acute distress Eyes: PERRL, conjunctivae normal, anicteric sclerae ENMT: external ear and nose normal, oropharynx normal Neck: trachea midline, no thyromegaly neck nontender Respiratory: normal percussion; no respiratory distress and does not use accessory muscles Auscultation: + rales and + rhonchi Cardiovascular: Rate/Rhythm: regular rate and regular rhythm Heart Sounds: normal S1 and normal S2; no gallop, no murmur and no cardiac rub Vessels: normal peripheral pulses; no JVD Gastrointestinal (Abdomen): normal bowel sounds, soft, nontender, no hepatosplenomegaly Musculoskeletal: no cyanosis or clubbing, extremities motor strength 5/5 Spine: thoracic spine normal to inspection and lumbar spine normal to inspection; no cervical spinal tenderness Skin: no rashes, warm and dry normal turgor; no lesions Neurologic: patellar DTR's 2+ bilat, sensation intact no focal motor deficits Psychiatric: A+Ox3, euthymic affect Orientation: cooperative Lymphatic: no cervical or axillary lymphadenopathy no inguinal lymphadenopathy Results & Data Vital Signs (Past 12 Hours) Vital Signs Temp Pulse Resp BP Pulse Ox 12/02/18 07:43 36.9 C 65 18 104/61 91 Laboratory Results Laboratory Results - last 48 hr 11/30/18 11/30/18 11/30/18 12:07 16:04 16:04 WBC RBC Hgb Hct MCV MCH MCHC RDW Std Deviation RDW Coeff of Sharon Plt Count MPV Sodium Potassium Chloride Carbon Dioxide Anion Gap BUN Creatinine Est Cr Clr Drug Dosing Est GFR ( Amer) Est GFR (Non-Af Amer) BUN/Creatinine Ratio Glucose Lactate 0.9 Calcium Magnesium Procalcitonin < 0.05 Influenza Type A (PCR) Neg for Influ A Influenza Type B (PCR) Neg for Influ B 12/01/18 12/01/18 07:20 07:20 WBC 3.45 L RBC 4.06 L Hgb 11.9 L Hct 35.9 L MCV 88.4 MCH 29.3 MCHC 33.1 RDW Std Deviation 43.2 RDW Coeff of Sharon 13.3 Plt Count 190 MPV 9.3 Sodium 140 Potassium 3.9 D Chloride 108 H Carbon Dioxide 26 Anion Gap 6.0 BUN 9 Creatinine 0.86 Est Cr Clr Drug Dosing 78.2 Est GFR ( Amer) 89.4 Est GFR (Non-Af Amer) 77.1 BUN/Creatinine Ratio 9.9 L Glucose 96 Lactate Calcium 8.3 L Magnesium 2.0 Procalcitonin Influenza Type A (PCR) Influenza Type B (PCR) Diagnostic Findings Microbiology 11/30/18 16:10 Blood Aerobic Blood Culture - Preliminary No growth in Aerobic bottle after 24 hours. 11/30/18 16:10 Blood Anaerobic Blood Culture - Final 11/30/18 15:57 Blood Aerobic Blood Culture - Preliminary No growth in Aerobic bottle after 24 hours. 11/30/18 15:57 Blood Anaerobic Blood Culture - Final CT ANGIOGRAPHY OF THE CHEST, PULMONARY EMBOLUS PROTOCOL CLINICAL HISTORY: Left-sided chest pain. Shortness of breath. COMPARISON STUDY: Chest CT July 09, 2018. Chest radiograph July 24, 2018. TECHNIQUE: Following IV administration of 93 mL of Optiray-320, helical axial images of the chest were obtained utilizing the pulmonary embolus protocol. Maximal intensity projections and sagittal and coronal reformats were viewed on an independent 3D workstation. IV contrast was administered without complication. Automated exposure control was utilized for the study. A dose lowering technique was utilized adhering to the principles of ALARA. CT DOSE: 539.20 mGycm FINDINGS: No pulmonary emboli are identified. The size of the heart is at the upper limits of normal. A few prominent mediastinal lymph nodes are probably reactive. There is no pericardial effusion. The central airways are patent. There is no pneumothorax or pleural effusion. There is moderate left upper lobe consolidation. There is mild consolidation within the left lower lobe as well as the right upper lobe. There is no cavitation. No central obstructing mass is present. Bony thorax is unremarkable. Upper abdomen is also unremarkable. IMPRESSION: 1. No pulmonary emboli identified. 2. Moderate left upper lobe consolidation with mild left lower lobe and right upper lobe consolidation. The findings favor multifocal pneumonia. Electronically signed by: Keyur Freedman M.D. 11/30/2018 10:30 AM Dictated: 11/30/18 0958 Transcribed: 11/30/18 0958 (1) Community acquired pneumonia Laterality: left Lung location: upper lobe of lung Qualified Code(s): J18.1 - Lobar pneumonia, unspecified organism
[2018-12-02] MEDS: DOXYCYCLINE HYCLATE 100 MG in DEXTROSE 5% 100 ML IV SCH ×2 (11:18→22:46)
--- NOTE | 2018-12-02 19:30 | Hospitalist Progress Note ---
Date of Service December 02, 2018 Assessment & Plan (1) Community acquired pneumonia: Continues to have persistent cough, acid or nausea, Febrile CXR: Multifocal bilateral airspace opacities which favor a pneumonia CTA CHEST: No pulmonary emboli identified. Moderate left upper lobe consolidation with mild left lower lobe and right upper lobe consolidation. The findings favor multifocal pneumonia. Initially treated treated with IV Levaquin, Changed to Unasyn as patient is reporting of nausea, Appreciate input from ID, added doxycycline for antibiotic coverage Continue supportive care Present on Admission?: Yes (2) Hypokalemia: Replaced, continue to monitor lites (3) Migraine headache: No current IZQUIERDO -continue propranolol, imitrex prn (4) ALEXIS (obstructive sleep apnea): -CPAP HS (5) GERD (gastroesophageal reflux disease): -continue PPI (6) Dyslipidemia: -continue statin DVT Prophylaxis -ambulate Disposition: Expected to be discharged home when medically stable Subjective Complains of feeling nauseous, poor appetite, has persistent cough, acid with chest pain, afebrile Physical Exam Constitutional: WD/WN, vitals as above + acute distress (Due to cough and nausea) Eyes: PERRL, conjunctivae normal, anicteric sclerae ENMT: external ear and nose normal, oropharynx normal Neck: trachea midline, no thyromegaly neck nontender Respiratory: + cough Auscultation: + rales and + rhonchi Cardiovascular: Rate/Rhythm: regular rate and regular rhythm Heart Sounds: normal S1 and normal S2; no gallop, no murmur and no cardiac rub Vessels: normal peripheral pulses; no JVD Gastrointestinal (Abdomen): normal bowel sounds, soft, nontender, no hepatosplenomegaly Musculoskeletal: no cyanosis or clubbing, extremities motor strength 5/5 Spine: thoracic spine normal to inspection and lumbar spine normal to inspection; no cervical spinal tenderness Skin: no rashes, warm and dry normal turgor; no lesions Neurologic: patellar DTR's 2+ bilat, sensation intact no focal motor deficits Psychiatric: A+Ox3, euthymic affect Orientation: cooperative Lymphatic: no cervical or axillary lymphadenopathy no inguinal lymphadenopathy Results & Data Vital Signs (Past 12 Hours) Vital Signs Temp Pulse Resp BP BP Pulse Ox 12/02/18 14:25 37 C 72 18 104/68 92 12/02/18 07:43 36.9 C 65 18 104/61 91 (1) Migraine headache Migraine type: unspecified Status migrainosus presence: without status migrainosus Intractability: not intractable Qualified Code(s): G43.909 - Migraine, unspecified, not intractable, without status migrainosus (2) Community acquired pneumonia Laterality: left Lung location: upper lobe of lung Qualified Code(s): J18.1 - Lobar pneumonia, unspecified organism (3) GERD (gastroesophageal reflux disease) Esophagitis presence: esophagitis presence not specified Qualified Code(s): K21.9 - Gastro-esophageal reflux disease without esophagitis
[2018-12-02] MEDS: ATORVASTATIN 10 MG TAB PO SCH (20:44)
[2018-12-03] MEDS: AMPICILLIN/SULBACTAM SOD 1,500 MG in 0.9 % SODIUM CHLORIDE 100 ML IV SCH ×2 (00:55→06:19)
[2018-12-03] MEDS: GUAIFENESIN/CODEINE 100MG/10MG 5ML UDC PO PRN ×3 (07:30→20:27)
[2018-12-03] MEDS: ONDANSETRON INJ 2 MG/ML 2 ML VIAL IV PRN ×2 (07:31→12:57)
[2018-12-03] MEDS: PANTOprazole 40 MG TAB PO SCH (07:33)
[2018-12-03] MEDS: DULOXETINE HCL 20 MG CAP PO SCH (07:33)
[2018-12-03] MEDS: PROPRANOLOL HCL LA 80 MG CAPCR PO SCH (07:33)
[2018-12-03] MEDS: DOXYCYCLINE HYCLATE 100 MG in DEXTROSE 5% 100 ML IV SCH ×2 (10:33→23:15)
[2018-12-03 12:33] LABS: Alanine Aminotransferase 24 U/L (12-78); Albumin Level 2.9 gm/dl (3.4-5.0); Alkaline Phosphatase 106 U/L (45-117); Aspartate Aminotransferase 34 U/L (15-37); Bilirubin Direct < 0.1 mg/dl (0-0.2); Bilirubin,Total 0.4 mg/dl (0.2-1); Total Protein 6.9 gm/dl (6.4-8.2)
[2018-12-03] MEDS: BENZONATATE 100 MG CAPSULE PO SCH ×2 (12:57→20:27)
[2018-12-03] MEDS ORDERED: IOVERSOL 100ml IV PRN (13:37)
[2018-12-03] MEDS: D5W AND LACTATED RINGERS 1,000 ML IV SCH ×2 (13:48→23:16)
--- NOTE | 2018-12-03 13:56 | CT Scan Report ---
CT abd pelvis IV con only CLINICAL HISTORY: Abdominal pain, nausea. COMPARISON STUDY: None. TECHNIQUE: The patient was unable to tolerate oral contrast. The patient was scanned in a dynamic hel ical fashion during intravenous administration of 94 cc of Optiray 320. A dose lowering technique wa s utilized adhering to the principles of ALARA. CT DOSE: 908.94 mGycm FINDINGS: Lower chest: There are multifocal lower lung zone opacities, suspicious for a multifocal pneumonia. C linical and radiographic follow-up is recommended. There are no pleural effusions. Liver: There is hepatic steatosis. There is focal fat adjacent to the falciform ligament. There is a 7 mm left lobe hypodensity likely representing a small cyst. Gallbladder: Unremarkable. Spleen: Normal in size and attenuation. Pancreas: Unremarkable. Adrenal glands: Unremarkable. Kidneys: No solid renal masses are visualized. There is mild prominence the right renal pelvis. There is no significant ureteral dilatation. Bowel: There are no transition zones indicate bowel obstruction. There is no evidence of acute divert iculitis. The appendix appears normal despite the history of a prior appendectomy. Peritoneum: There is no intraperitoneal free air or abdominal ascites. There is very slight increased density of the fat within the central mesentery. This could indicate a minimal mesenteritis. Vasculature: The abdominal aorta is normal in course and caliber. Adenopathy: None. Pelvic viscera: The uterus appears surgically absent Skeletal structures: There is mild enlargement of the left rectus sheath, consistent with a small lef t-sided rectus sheath hematoma. IMPRESSION: 1. No evidence of bowel obstruction. No evidence of free air 2. Normal appendix. No evidence of acute diverticulitis 3. Small left rectus sheath hematoma 4. Multifocal pulmonary airspace opacities consistent with a multifocal pneumonia Electronically signed by: Corby Bowles M.D. 12/03/2018 1:50 PM
[2018-12-03] MEDS: CEFEPIME 2,000 MG in SYRINGE 7.5 ML IV SCH ×2 (16:28→23:15)
--- NOTE | 2018-12-03 19:26 | Infectious Disease Progress Nt ---
Date of Service December 03, 2018 Assessment & Plan (1) Community acquired pneumonia: 53 yo female with multifocal CAP, low procalcitonin and low WBC speak against typical bacterial infections. Will sends studies for Legionella and Mycoplasma, and will continue doxycycline for atypical coverage. Will follow. Subjective Patient seen in follow-up for multifocal pneumonia. Has been complaining of some abdominal pain, CT scan with small rectus sheath hematoma. Cough about the same, no increase in shortness of breath. Remains afebrile. Review of Systems Review of Systems: All systems reviewed & are unremarkable except as noted in HPI & below Physical Exam Constitutional: WD/WN, vitals as above comfortable; no acute distress Eyes: PERRL, conjunctivae normal, anicteric sclerae ENMT: external ear and nose normal, oropharynx normal Neck: trachea midline, no thyromegaly neck nontender Respiratory: normal percussion; no respiratory distress and does not use accessory muscles Auscultation: + rales and + rhonchi Cardiovascular: Rate/Rhythm: regular rate and regular rhythm Heart Sounds: normal S1 and normal S2; no gallop, no murmur and no cardiac rub Vessels: normal peripheral pulses; no JVD Gastrointestinal (Abdomen): normal bowel sounds, soft, nontender, no hepatosplenomegaly Musculoskeletal: no cyanosis or clubbing, extremities motor strength 5/5 Spine: thoracic spine normal to inspection and lumbar spine normal to inspection; no cervical spinal tenderness Skin: no rashes, warm and dry normal turgor; no lesions Neurologic: patellar DTR's 2+ bilat, sensation intact no focal motor deficits Psychiatric: A+Ox3, euthymic affect Orientation: cooperative Lymphatic: no cervical or axillary lymphadenopathy no inguinal lymphadenopa thy Results & Data Vital Signs (Past 12 Hours) Vital Signs Temp Pulse Resp BP Pulse Ox 12/03/18 15:03 36.9 C 66 18 112/66 92 Laboratory Results Liver Function 12/03/18 Range/Units 11:52 Total Bilirubin 0.4 (0.2-1) mg/dl Direct Bilirubin < 0.1 (0-0.2) mg/dl AST 34 (15-37) U/L ALT 24 (12-78) U/L Alkaline Phosphatase 106 (45-117) U/L Albumin 2.9 L (3.4-5.0) gm/dl Diagnostic Findings Microbiology 12/03/18 11:00 Sputum, Expectorated Gram Stain - Final 12/03/18 11:00 Sputum, Expectorated Sputum Culture - Final 11/30/18 16:10 Blood Aerobic Blood Culture - Preliminary No growth in Aerobic bottle after 48 hours. 11/30/18 16:10 Blood Anaerobic Blood Culture - Preliminary No growth in Anaerobic bottle after 48 hours. 11/30/18 15:57 Blood Aerobic Blood Culture - Preliminary No growth in Aerobic bottle after 48 hours. 11/30/18 15:57 Blood Anaerobic Blood Culture - Preliminary No growth in Anaerobic bottle after [address] abd pelvis IV con only CLINICAL HISTORY: Abdominal pain, nausea. COMPARISON STUDY: None. TECHNIQUE: The patient was unable to tolerate oral contrast. The patient was scanned in a dynamic helical fashion during intravenous administration of 94 cc of Optiray 320. A dose lowering technique was utilized adhering to the principles of ALARA. CT DOSE: 908.94 mGycm FINDINGS: Lower chest: There are multifocal lower lung zone opacities, suspicious for a multifocal pneumonia. Clinical and radiographic follow-up is recommended. There are no pleural effusions. Liver: There is hepatic steatosis. There is focal fat adjacent to the falciform ligament. There is a 7 mm left lobe hypodensity likely representing a small cyst. Gallbladder: Unremarkable. Spleen: Normal in size and attenuation. Pancreas: Unremarkable. Adrenal glands: Unremarkable. Kidneys: No solid renal masses are visualized. There is mild prominence the right renal pelvis. There is no significant ureteral dilatation. Bowel: There are no transition zones indicate bowel obstruction. There is no evidence of acute diverticulitis. The appendix appears normal despite the history of a prior appendectomy. Peritoneum: There is no intraperitoneal free air or abdominal ascites. There is very slight increased density of the fat within the central mesentery. This could indicate a minimal mesenteritis. Vasculature: The abdominal aorta is normal in course and caliber. Adenopathy: None. Pelvic viscera: The uterus appears surgically absent Skeletal structures: There is mild enlargement of the left rectus sheath, consistent with a small left-sided rectus sheath hematoma. IMPRESSION: 1. No evidence of bowel obstruction. No evidence of free air 2. Normal appendix. No evidence of acute diverticulitis 3. Small left rectus sheath hematoma 4. Multifocal pulmonary airspace opacities consistent with a multifocal pneumonia Electronically signed by: Corby Bowles M.D. 12/03/2018 1:50 PM Dictated: 12/03/18 1344 Transcribed: 12/03/18 1348 (1) Community acquired pneumonia Laterality: left Lung location: upper lobe of lung Qualified Code(s): J18.1 - Lobar pneumonia, unspecified organism
--- NOTE | 2018-12-03 20:30 | Hospitalist Progress Note ---
Date of Service December 03, 2018 Assessment & Plan (1) Community acquired pneumonia: Continues to have cough, feels very poorly stated persistent nausea CXR: Multifocal bilateral airspace opacities which favor a pneumonia CTA CHEST: No pulmonary emboli identified. Moderate left upper lobe consol idation with mild left lower lobe and right upper lobe consolidation. The findings favor multifocal pneumonia. On doxycycline, added for atypical coverage, appreciate input from ID, Patient continues to have productive cough, persistent nausea, added cefepime for broader coverage (2) Abdominal pain: Complaints of abdominal pain and nausea, CT abdomen pelvis shows small rectus sheath hematoma on the left, patient has not been on aspirin not on subcu heparin Possible spontaneous hematoma due to persistent cough? Continue pain management conservative approach, follow H&H closely, avoid anticoagulation antiplatelets (3) Hypokalemia: Corrected (4) Migraine headache: No current IZQUIERDO -continue propranolol, imitrex prn (5) ALEXIS (obstructive sleep apnea): -CPAP HS (6) GERD (gastroesophageal reflux disease): -continue PPI (7) Dyslipidemia: -continue statin DVT Prophylaxis -ambulate Disposition: Expect to be discharged home when medically stable Subjective Not feeling well complains of abdominal pain, persistent nausea, ongoing cough with yellow sputum, afebrile, very poor appetite Physical Exam Constitutional: + acute distress (Due to cough and nausea) Eyes: PERRL, conjunctivae normal, anicteric sclerae Neck: trachea midline, no thyromegaly neck nontender Respiratory: + cough Auscultation: + rales and + rhonchi Cardiovascular: Rate/Rhythm: regular rate and regular rhythm Heart Sounds: normal S1 and normal S2; no gallop, no murmur and no cardiac rub Vessels: normal peripheral pulses; no JVD Gastrointestinal (Abdomen): Percussion/Palpation: + abdomen tender (Left lower quadrant,) and abdomen soft Musculoskeletal: no cyanosis or clubbing, extremities motor strength 5/5 Skin: no rashes, warm and dry Neurologic: no focal motor deficits Psychiatric: A+Ox3, euthymic affect Results & Data Vital Signs (Past 12 Hours) Vital Signs Temp Pulse Resp BP Pulse Ox 12/03/18 15:03 36.9 C 66 18 112/66 92 (1) Community acquired pneumonia Laterality: left Lung location: upper lobe of lung Qualified Code(s): J18.1 - Lobar pneumonia, unspecified organism (2) Migraine headache Migraine type: unspecified Status migrainosus presence: without status migrainosus Intractability: not intractable Qualified Code(s): G43.909 - Migraine, unspecified, not intractable, without status migrainosus (3) GERD (gastroesophageal reflux disease) Esophagitis presence: esophagitis presence not specified Qualified Code(s): K21.9 - Gastro-esophageal reflux disease without esophagitis (4) Abdominal pain Abdominal location: left lower quadrant Qualified Code(s): R10.32 - Left lower quadrant pain
[2018-12-03] MEDS ORDERED: CEFEPIME 1,000 MG in SYRINGE 0 ML IV SCH (21:00)
[2018-12-03] MEDS ORDERED: ALBUTEROL HFA 8 GM INHALER INH PRN (22:26)
[2018-12-04] MEDS: ONDANSETRON INJ 2 MG/ML 2 ML VIAL IV PRN ×2 (06:30→12:15)
[2018-12-04] MEDS: D5W AND LACTATED RINGERS 1,000 ML IV SCH ×2 (08:02→20:03)
[2018-12-04] MEDS: CEFEPIME 2,000 MG in SYRINGE 7.5 ML IV SCH (08:02)
[2018-12-04] MEDS: DULOXETINE HCL 20 MG CAP PO SCH (08:03)
[2018-12-04] MEDS: PROPRANOLOL HCL LA 80 MG CAPCR PO SCH (08:04)
[2018-12-04] MEDS: PANTOprazole 40 MG TAB PO SCH (08:04)
[2018-12-04] MEDS: guaiFENesin 600 MG TABCR PO SCH ×2 (09:39→20:00)
[2018-12-04] MEDS: DEXTROMETHORPHAN POLYMR COMPLX 30 MG/5 ML UDP PO PRN (09:40)
[2018-12-04] MEDS: DOXYCYCLINE HYCLATE 100 MG in DEXTROSE 5% 100 ML IV SCH (11:02)
[2018-12-04] MEDS: BENZONATATE 100 MG CAPSULE PO SCH ×3 (11:03→20:00)
[2018-12-04] MEDS ORDERED: ONDANSETRON INJ 2 MG/ML 2 ML VIAL IV PRN (13:01)
[2018-12-04] MEDS ORDERED: MECLIZINE HCL 25 MG TAB PO PRN (13:01)
--- NOTE | 2018-12-04 14:04 | Hospitalist Progress Note ---
Date of Service December 04, 2018 Assessment & Plan (1) Community acquired pneumonia: Has been on IV cefepime, cough has continues to improve We will change antibiotic to p.o. Keflex Resented with cough, fever CXR: Multifocal bilateral airspace opacities which favor a pneumonia CTA CHEST: No pulmonary emboli identified. Moderate left upper lobe consolidation with mild left lower lobe and right upper lobe consolidation. The findings favor multifocal pneumonia. doxycycline, added for atypical coverage, appreciate input from ID, (2) Abdominal pain: Complaints of abdominal pain and nausea, CT abdomen pelvis shows small rectus sheath hematoma on the left, patient has not been on aspirin not on subcu heparin Possible spontaneous hematoma due to persistent cough? 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 Patient reports not feeling well, constant nausea, no improvement of abdominal pain or discomfort, cough has improved remains afebrile Appetite is very poor, One episode of diarrhea earlier today no blood in stool Physical Exam Constitutional: WD/WN, vitals as above + acute distress (Due to cough and nausea) Eyes: PERRL, conjunctivae normal, anicteric sclerae ENMT: external ear and nose normal, oropharynx normal Neck: trachea midline, no thyromegaly neck nontender Respiratory: + cough Auscultation: + rales and + rhonchi Cardiovascular: Rate/Rhythm: regular rate and regular rhythm Heart Sounds: normal S1 and normal S2; no gallop, no murmur and no cardiac rub Vessels: normal peripheral pulses; no JVD Gastrointestinal (Abdomen): normal bowel sounds, soft, nontender, no hepatosplenomegaly Percussion/Palpation: + abdomen tender (Left lower quadrant,) and abdomen soft Musculoskeletal: no cyanosis or clubbing, extremities motor strength 5/5 Spine: thoracic spine normal to inspection and lumbar spine normal to inspection; no cervical spinal tenderness Skin: no rashes, warm and dry normal turgor; no lesions Neurologic: patellar DTR's 2+ bilat, sensation intact no focal motor deficits Psychiatric: A+Ox3, euthymic affect Orientation: cooperative Lymphatic: no cervical or axillary lymphadenopathy no inguinal lymphadenopathy Results & Data Vital Signs (Past 12 Hours) Vital Signs Temp Pulse Resp BP Pulse Ox 12/04/18 11:55 36.7 C 60 16 152/72 H 94 12/04/18 07:45 37 C 72 14 130/72 92 (1) Community acquired pneumonia Laterality: left Lung location: upper lobe of lung Qualified Code(s): J18.1 - Lobar pneumonia, unspecified organism (2) Abdominal pain Abdominal location: left lower quadrant Qualified Code(s): R10.32 - Left lower quadrant pain (3) Migraine headache Migraine type: unspecified Status migrainosus presence: without status migrainosus Intractability: not intractable Qualified Code(s): G43.909 - Migraine, unspecified, not intractable, without status migrainosus (4) GERD (gastroesophageal reflux disease) Esophagitis presence: esophagitis presence not specified Qualified Code(s): K21.9 - Gastro-esophageal reflux disease without esophagitis
[2018-12-04] MEDS: GUAIFENESIN/CODEINE 100MG/10MG 5ML UDC PO PRN (16:45)
[2018-12-04] MEDS: cephALEXin 500 MG CAP PO SCH ×2 (16:45→20:00)
[2018-12-04] MEDS: ACETAMINOPHEN 325 MG TAB PO PRN (19:30)
[2018-12-04] MEDS: DOXYCYCLINE HYCLATE 100 MG CAP PO SCH (20:00)
[2018-12-05] MEDS: cephALEXin 500 MG CAP PO SCH ×4 (08:14→21:03)
[2018-12-05] MEDS: DOXYCYCLINE HYCLATE 100 MG CAP PO SCH ×2 (08:14→21:04)
[2018-12-05] MEDS: DULOXETINE HCL 20 MG CAP PO SCH (08:14)
[2018-12-05] MEDS: PROPRANOLOL HCL LA 80 MG CAPCR PO SCH (08:15)
[2018-12-05] MEDS: guaiFENesin 600 MG TABCR PO SCH ×2 (08:15→21:03)
[2018-12-05] MEDS: PANTOprazole 40 MG TAB PO SCH (08:15)
[2018-12-05] MEDS: BENZONATATE 100 MG CAPSULE PO SCH ×3 (08:15→21:03)
[2018-12-05] MEDS: D5W AND LACTATED RINGERS 1,000 ML IV SCH ×2 (08:16→17:07)
[2018-12-05] MEDS: KETOROLAC TROMETHAMINE 15 MG/ML VIAL IV PRN (13:10)
[2018-12-05] MEDS: DEXTROMETHORPHAN POLYMR COMPLX 30 MG/5 ML UDP PO PRN ×2 (13:14→21:11)
--- NOTE | 2018-12-05 18:03 | Hospitalist Progress Note ---
Date of Service December 05, 2018 Assessment & Plan (1) Community acquired pneumonia: Clinically improved, on antibiotic p.o. Keflex Cough has improved, afebrile CXR: Multifocal bilateral airspace opacities which favor a pneumonia CTA CHEST: No pulmonary emboli identified. Moderate left upper lobe consolidation with mild left lower lobe and right upper lobe consolidation. The findings favor multifocal pneumonia. doxycycline, added for atypical coverage, appreciate input from ID, Possible discharge home tomorrow if remains clinically stable (2) Abdominal pain: Symptom much improved, possible secondary to viral gastroenteritis, Complaints of abdominal pain and nausea, CT abdomen pelvis shows small rectus sheath hematoma on the left, patient has not been on aspirin not on subcu heparin Possible spontaneous hematoma due to persistent cough? No further complaint, nausea has resolved order to advance diet, possible discharge home tomorrow, patient will be advised not to take any aspirin for next 7 to 10 days (3) Hypokalemia: Corrected (4) Migraine headache: No current IZQUIERDO -continue propranolol, imitrex prn (5) ALEXIS (obstructive sleep apnea): -CPAP HS (6) GERD (gastroesophageal reflux disease): -continue PPI (7) Dyslipidemia: -continue statin DVT Prophylaxis -ambulate Disposition: Plan to discharge home tomorrow if remains clinically stable Subjective Patient mentions of feeling much better today cough has improved, minimal nausea, no abdominal pain, willing to advance diet to solid, afebrile, wants to be discharged home tomorrow if possible Physical Exam Constitutional: WD/WN, vitals as above Eyes: PERRL, conjunctivae normal, anicteric sclerae ENMT: external ear and nose normal, oropharynx normal Neck: neck nontender Cardiovascular: Rate/Rhythm: regular rate and regular rhythm Heart Sounds: normal S1 and normal S2; no gallop Vessels: normal peripheral pulses; no JVD Gastrointestinal (Abdomen): normal bowel sounds, soft, nontender, no hepatosplenomegaly Musculoskeletal: no cyanosis or clubbing, extremities motor strength 5/5 Skin: no rashes, warm and dry normal turgor; no lesions Neurologic: no focal motor deficits Psychiatric: A+Ox3, euthymic affect Orientation: cooperative Results & Data Vital Signs (Past 12 Hours) Vital Signs Temp Pulse Resp BP BP Pulse Ox 12/05/18 15:00 37.0 C 57 L 18 126/74 95 12/05/18 07:27 36.7 C 60 18 136/73 96 12/05/18 06:31 36.8 C 89 20 132/72 94 (1) Migraine headache Intractability: not intractable Migraine type: unspecified Status migrainosus presence: without status migrainosus Qualified Code(s): G43.909 - Migraine, unspecified, not intractable, without status migrainosus (2) Community acquired pneumonia Laterality: left Lung location: upper lobe of lung Qualified Code(s): J18.1 - Lobar pneumonia, unspecified organism (3) GERD (gastroesophageal reflux disease) Esophagitis presence: esophagitis presence not specified Qualified Code(s): K21.9 - Gastro-esophageal reflux disease without esophagitis (4) Abdominal pain Abdominal location: left lower quadrant Qualified Code(s): R10.32 - Left lower quadrant pain
[2018-12-06] MEDS: DULOXETINE HCL 20 MG CAP PO SCH (08:29)
[2018-12-06] MEDS: BENZONATATE 100 MG CAPSULE PO SCH ×3 (08:29→19:57)
[2018-12-06] MEDS: PANTOprazole 40 MG TAB PO SCH (08:29)
[2018-12-06] MEDS: PROPRANOLOL HCL LA 80 MG CAPCR PO SCH (08:29)
[2018-12-06] MEDS: DOXYCYCLINE HYCLATE 100 MG CAP PO SCH ×2 (08:29→19:55)
[2018-12-06] MEDS: guaiFENesin 600 MG TABCR PO SCH (08:29)
[2018-12-06] MEDS: cephALEXin 500 MG CAP PO SCH ×4 (08:30→19:59)
--- NOTE | 2018-12-10 12:23 | Discharge Summary ---
Date of Service December 06, 2018 Admission HPI Per Admitting Provider Pt is 53 y/o F with PMH migraine IZQUIERDO, ALEXIS, HLD, GERD presented to ER with c/o cough x 4 days. 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 Patient states started with productive cough, fever, shortness of breath started on 11/26/2018. Patient states tried using her albuterol inhaler without much relief. She was seen by PCP on 11/29/2018 and started on Z-Ruperto and Tessalon Perles for suspected pneumonia. Patient reports having left lower chest pain/LUQ pain aggravated with coughing and deep breathing. Reports she has had intermittent vomiting. She has been eating and drinking very little. Patient complains of intermittent dizziness aggravated with coughing. She has a history of PE in the past. Patient reports a confucianism contact with URI symptoms. Denies recent travel. Reports had her influenza vaccine this season. Denies diarrhea, constipation, IZQUIERDO, syncope, vision changes, neck pain, palpitations, sore throat, rhinorrhea, other abdominal pain, paresthesias, extremity edema, rashes, urinary symptoms. Principal Diagnosis PNEUMINIA /VIRAL GASTROENTERITIS Discharge Exam Constitutional WD/WN, vitals as above + acute distress (Due to cough and nausea) Eyes PERRL, conjunctivae normal, anicteric sclerae ENMT external ear and nose normal, oropharynx normal Neck trachea midline, no thyromegaly neck nontender Respiratory + cough Auscultation: + rales and + rhonchi Cardiovascular Rate/Rhythm: regular rate and regular rhythm Heart Sounds: normal S1 and normal S2; no gallop Vessels: normal peripheral pulses; no JVD Gastrointestinal (Abdomen) normal bowel sounds, soft, nontender, no hepatosplenomegaly Percussion/Palpation: + abdomen tender (Left lower quadrant,) and abdomen soft Musculoskeletal no cyanosis or clubbing, extremities motor strength 5/5 Spine: thoracic spine normal to inspection and lumbar spine normal to inspection; no cervical spinal tenderness Skin no rashes, warm and dry normal turgor; no lesions Neurologic patellar DTR's 2+ bilat, sensation intact no focal motor deficits Psychiatric A+Ox3, euthymic affect Orientation: cooperative Lymphatic no cervical or axillary lymphadenopathy no inguinal lymphadenopathy Discharge Data Allergies Allergy/AdvReac Type Severity Reaction Status Date / Time No Known Allergies Allergy Verified 11/30/18 09:25 Consultations 11/30/18 11:30 ED Decision to Admit Stat 12/01/18 18:44 Consult Infectious Diseases Routine Ordered Studies 11/30/18 09:31 CT angio chest PE protocol Stat 12/03/18 12:47 CT abd pelvis IV con only Urgent Hospital Course (1) Community acquired pneumonia: Clinically improved, on antibiotic p.o. Keflex Cough has improved, afebrile CXR: Multifocal bilateral airspace opacities which favor a pneumonia CTA CHEST: No pulmonary emboli identified. Moderate left upper lobe consolidation with mild left lower lobe and right upper lobe consolidation. The findings favor multifocal pneumonia. doxycycline, added for atypical coverage, appreciate input from ID, stable to be discharge home today (2) Abdominal pain: Symptom resolved , possible secondary to viral gastroenteritis, diet advanced , tolerating well , CT abdomen pelvis shows small rectus sheath hematoma on the left, patient has not been on aspirin not on subcu heparin Possible spontaneous hematoma due to persistent cough? No further complaint, nausea has resolved tolerating diet, stable to be discharged home today, patient will be advised not to take any aspirin for next 7 to 10 days (3) Hypokalemia: Corrected (4) Migraine headache: No current IZQUIERDO -continue propranolol, imitrex prn (5) ALEXIS (obstructive sleep apnea): -CPAP HS (6) GERD (gastroesophageal reflux disease): -continue PPI (7) Dyslipidemia: -continue statin DVT Prophylaxis -ambulate Disposition: stable to be dischargec home today Total Time Total Time Spent Total Time Spent (In Minutes): approx 45 mins Total Time Includes: Examination of the Patient, Discharge Planning and Medicati on Reconciliation Discharge Plan Discharge Items Patient Disposition: Home - Self-Care Reason For Visit: PNEUMONIA Discharge Diagnosis: pneumonia Condition: Good Discharge Goals: Decrease discomfort, Diagnostic testing and Therapeutic intervention Activity: Resume your previous activity Non-emergency contact: Primary Care Provider Call non-emergency contact if: you have any medication questions Follow-up/Referrals: Patrizia Lewis PA-C [Primary Care Provider] - Diet: Regular Addtl Provider Instructions: FOLLOW UP WITH FAMILY PHYSICIAN IN A WEEK Prescriptions: New fluconazole [Diflucan] 100 mg tablet 100 mg PO DAILY 7 Days Qty: 7 RF: 0 ondansetron HCl [Zofran] 4 mg tablet 4 mg PO Q8H PRN (Reason: nausea and vomiting) 7 Days Qty: 21 RF: 3 Continued sumatriptan succinate [Imitrex] 25 mg tablet 25 mg PO UD PRN (Reason: Migraine Headache) RF: 0 pantoprazole [Protonix] 40 mg tablet,delayed release (DR/EC) 40 mg PO QAM RF: 0 albuterol sulfate [Ventolin HFA] 90 mcg/actuation HFA aerosol inhaler 2 puff Inhalation QID PRN (Reason: Shortness Of Breath Or Wheezing) RF: 0 benzonatate [Tessalon Perles] 100 mg capsule 100 mg PO TID PRN (Reason: cough) Qty: 20 RF: 0 acetaminophen [Tylenol Extra Strength] 500 mg Tablet 500 mg PO Q6H PRN (Reason: pain/fever) RF: 0 atorvastatin 10 mg Tablet 10 mg PO HS RF: 0 propranolol 80 mg Capsule,Extended Release 24 Hr 80 mg PO DAILY RF: 0 duloxetine 20 mg Capsule,Delayed Release(Dr/Ec) 40 mg PO DAILY RF: 0 riboflavin (vitamin B2) 400 mg Tablet 400 mg PO DAILY RF: 0 Discontinued azithromycin 250 mg Tablet 250 mg PO UD RF: 0 Stand-Alone Forms: [facility] Discharge Orders: Discharge Order (Routine); Ordered 12/06/18 Ordered By: Whitley Latham Admission Data Admit Date/Time: 11/30/18 12:48 Attending Provider: Whitley Latham Admit Provider: Whitley Latham Primary Care Provider: Patrizia Lewis Other Providers: Jay Ovalle Service: Medical Other Interventions: Discharge Summary Assessment (RN) Last Done: 12/06/18 19:31 DC Date/Time DO NOT enter until pt leaves facility: 12/06/18 20:28
== END 2018-12-06 20:28 | disposition home or self-care (01) | DRG 195 ==
LOC: ED 08:29 → 4E 12:48

== ENCOUNTER 2019-02-06 09:34 | Observation (INO) ==
[2019-02-06] MEDS ORDERED: ONDANSETRON INJ 2 MG/ML 2 ML VIAL IV STA (09:44)
[2019-02-06] MEDS ORDERED: LORazepam 0.5 MG/1 ML VIAL IV STA (09:44)
[2019-02-06] MEDS ORDERED: SODIUM CHLORIDE 0.9% 1000ML 1,000 ML IV SCH (09:45)
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
[2019-02-06 10:09] LABS: Basophils # (auto) 0.01 K/uL (0-0.2); Basophils % (auto) 0.1 %; Eosinophils # (auto) 0.06 K/uL (0-0.5); Eosinophils % (auto) 0.7 %; Hematocrit (blood only) 41.5 % (37-47); Immature Granulocytes # (auto) 0.02 K/uL (0.00-0.02); Immature Granulocytes % (auto) 0.2 %; Lymphocytes # (auto) 1.75 K/uL (1.2-3.4); Lymphocytes % (auto) 21.4 %; Mean Corpuscular Hgb Conc 33.7 g/dL (32-36); Mean Corpuscular Volume 89.8 fL (80-100); Mean Platelet Volume 9.6 fL (7.4-10.4); Monocytes # (auto) 0.29 K/uL (0.11-0.59); Monocytes % (auto) 3.6 %; Neutrophils # (auto) 6.03 K/uL (1.4-6.5); Platelet Count 303 K/uL (130-400); RDW Coefficient of Variation 13.8 % (11.5-14.5); RDW Standard Deviation 45.2 fL (36.4-46.3); Red Blood Count 4.62 M/uL (4.2-5.4); White Blood Count 8.16 K/uL (4.8-10.8)
[2019-02-06 10:25] LABS: Alanine Aminotransferase 26 U/L (12-78); Albumin Level 3.9 gm/dl (3.4-5.0); Aspartate Aminotransferase 17 U/L (15-37); BUN Creatinine Ratio 19.5 (10-20); Blood Urea Nitrogen 15 mg/dl (7-18); Calcium 9.7 mg/dl (8.5-10.1); Carbon Dioxide 26 mmol/L (21-32); Chloride 106 mmol/L (98-107); Creatinine Clr Calc Pharmacy 88.8 ml/min; D Dimer 430 ug/L FEU (0-500); Est GFR (African American) 102.2; Est GFR (Non-African American) 88.2; Glucose 116 mg/dl (70-99); INR 0.9 (0.9-1.1); Partial Thromboplastin Ratio 0.8; Partial Thromboplastin Time 22.9 Seconds (21.0-31.0); Potassium 3.9 mmol/L (3.5-5.1); Prothrombin Time 9.6 Seconds (9.0-12.0); Sodium 142 mmol/L (136-145)
[2019-02-06 10:30] LABS: Albumin Globulin Ratio 0.9 (0.9-2); Alkaline Phosphatase 155 U/L (45-117); Bilirubin,Total 0.3 mg/dl (0.2-1); Globulin 4.2 gm/dl (2.5-4.0); Total Protein 8.1 gm/dl (6.4-8.2); Troponin I < 0.015 ng/ml (0-0.045)
--- NOTE | 2019-02-06 10:48 | XRay Report ---
XR chest 1V portable CLINICAL HISTORY: pain pain COMPARISON STUDY: 12/01/2018 FINDINGS: Mild stable cardiomegaly. Lungs are considered clear. Diaphragms are smooth. IMPRESSION: Mild stable cardiomegaly. Otherwise negative study. The above report was generated using voice recognition software. It may contain grammatical, syntax or spelling errors. Electronically signed by: Lee Qureshi M.D. 02/06/2019 10:46 AM
[2019-02-06 12:17] LABS: Appearance Urine Clear (Clear); Bilirubin Urine Negative (Negative); Blood Urine Negative (Negative); Color Urine Yellow; Glucose Urine UA Negative (Negative); Ketones Urine Negative (Negative); Leukocyte Esterase Urine Negative (Negative); Nitrite Urine Negative (Negative); Protein Urine Negative (Negative); Specific Gravity Urine 1.012 (1.000-1.030); Urobilinogen Urine Negative (Negative)
[2019-02-06] MEDS ORDERED: ONDANSETRON INJ 2 MG/ML 2 ML VIAL IV PRN (16:03)
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
[2019-02-06] MEDS ORDERED: NITROGLYCERIN SL 0.4 MG/TAB TAB SL PRN (17:26)
[2019-02-06] MEDS ORDERED: ACETAMINOPHEN 500 MG TAB PO PRN (17:26)
[2019-02-06] MEDS: HEPARIN SOD 5,000 UNIT/0.5 ML VIAL SQ SCH (22:06)
[2019-02-07] MEDS: HEPARIN SOD 5,000 UNIT/0.5 ML VIAL SQ SCH (05:56)
[2019-02-07 08:14] LABS: Estimated Average Glucose 120 mg/dl; Hemoglobin A1C 5.8 % (4.5-5.6)
[2019-02-07 08:15] LABS: Chol HDL Ratio 5; Cholesterol 256 mg/dl (0-200); HDL Cholesterol 51 mg/dl; LDL Cholesterol Calculated 171 mg/dl; Triglycerides 172 mg/dl (0-150); VLDL Cholesterol 34 mg/dl
[2019-02-07] MEDS ORDERED: PANTOprazole 40 MG TAB PO SCH (09:00)
[2019-02-07] MEDS ORDERED: ASPIRIN 81 MG ECTAB PO SCH (09:00)
[2019-02-07] MEDS ORDERED: LISINOPRIL 5 MG TAB PO SCH (09:00)
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
[2019-02-07] MEDS ORDERED: ATORVASTATIN 20 MG TAB PO SCH (09:15)
--- NOTE | 2019-02-07 10:22 | Cardiology Progress Note ---
Date of Service February 07, 2019 Assessment & Plan (1) Chest pain: Symptoms are exacerbated by severe emotional stress. No dynamic EKG changes with normal LV systolic function on echo, normal troponin. Patient does have multiple cardiac risk factors in lieu of such we will proceed with stress echocardiography this morning Stress echocardiography performed this morning without stress-induced ischemia by EKG and echocardiographic criteria no symptoms exacerbated. Recommendations treat hypertension, increase lisinopril to 10 mg p.o. daily Treat hyperlipidemia begin with atorvastatin 20 mg p.o. daily given significant LDL elevation Close clinical follow-up with primary care physician Results & Data Vital Signs (Past 12 Hours) Vital Signs Temp Pulse Pulse Resp BP Pulse Ox 02/07/19 07:42 36.6 C 70 18 111/70 97 02/07/19 05:34 71 18 96 02/07/19 04:00 36.4 C L 72 19 130/75 99 02/07/19 01:45 74 16 96 02/07/19 00:05 36.6 C 68 18 99/65 L 96 (1) Chest pain Chest pain type: unspecified Qualified Code(s): R07.9 - Chest pain, unspecified
[2019-02-07] MEDS ORDERED: LISINOPRIL 5 MG TAB PO ONE (11:42)
--- NOTE | 2019-02-07 12:20 | Hospitalist Progress Note ---
Date of Service February 07, 2019 Assessment & Plan (1) Chest pain: Present on admission with chest pain associated with diaphoresis Possible related to emotional stress CXR on admission showed no acute finding Troponin x3 negative EKG showed non specific ST changes Cardiology on board Exercise stress echo is negative for induce ischemia Resting ECHO showed no wall motion abnormality with EF btw 60-65 % Continue aspirin, statin Chol 256 and LDL 171 Ok from cardiology standpoint to discharge home HTN BP has been stable, only one high BP reading with SBP 150 Will continue Lisinopril 5mg for now Continue monitor BP outpatient and if elevates will increase lisinopril to 10mg Monitor BP ALEXIS (obstructive sleep apnea): CPAP HS GERD (gastroesophageal reflux disease) Pt has not been taking her PPI Will need to resume Pantoprazole if experiences any heartburn symptoms Dyslipidemia has not been taking any statin Chol 256 and LDL 171 Starting on Atorvastatin 20mg daily Check Lipid panel in 3 to 6 months Advised pt to follow a health diet with low cholesterol Anxiety Due to her son in the hospital Will add low dose of Hydroxyzine 10mg PRN Major side effect discussed with patient such as dizziness, nausea, vomiting, altered mental status, drowsiness DVT Prophylaxis On heparin subq Code status full code Disposition Discharge home today Follow up with your primary care provider Dr. Ramirez on 02/09 @ 10:45 AM Subjective Pt was seen and examined Lying in bed with no distress eating lunch Pt said that she feels fine She said that she did not have any pain last night She said that her son did well from the surgery She said that she is going to [place] on Thursday to visit her son Denies any chest pain, palpitation, dizziness and SOB Physical Exam Physical Exam: General- No acute distress Head- atraumatic Eyes- PERRL, EOMI, ENT- oropharynx clear Neck- supple, no JVD Lungs- clear to auscultation Heart- regular rhythm; no murmur Abdomen- normal bowel sounds, soft, nontender Extremities- no calf tenderness Neuro- alert, oriented x 3; PERRL, EOMI; no facial palsy; no dysarthria Skin- warm & dry Results & Data Vital Signs (Past 12 Hours) Vital Signs Temp Pulse Pulse Resp BP Pulse Ox 02/07/19 12:03 132/81 02/07/19 11:17 36.9 C 80 19 150/82 H 97 02/07/19 07:42 36.6 C 70 18 111/70 97 02/07/19 05:34 71 18 96 02/07/19 04:00 36.4 C L 72 19 130/75 99 02/07/19 01:45 74 16 96 (1) Chest pain Chest pain type: unspecified Qualified Code(s): R07.9 - Chest pain, unspecified
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
[2019-02-08] MEDS ORDERED: LISINOPRIL 10 MG TAB PO SCH (09:00)
--- NOTE | 2019-02-14 10:36 | Coding Query ---
A supporting diagnosis is required for the test/procedure performed on this patient in order for us to be reimbursed by the patient's insurance. Please provide a supporting diagnosis for the following test/procedure listed below next to the test name along with your signature. *If there is no additional diagnosis for this patient that would support the following test/procedure please document that below next to the test/procedure. Test(s)/Procedure(s) that require a supporting diagnosis: HBA1C DIAGNOSIS:____Hyperglycemia Provider Signature: Date: Thank you Jackie Funes Health Information Management Once completed, please kindly fax back to [phone] For questions please call [phone] PAM
== END 2019-02-07 14:33 | disposition home or self-care (01) ==
LOC: ED 09:34 → INTOOBSV 16:07 → 2S 16:07

== ENCOUNTER 2025-01-07 14:07 | Inpatient (IN) ==
--- NOTE | 2025-01-07 14:24 | Emergency Department Note ---
Impression & Plan AMS (altered mental status), Flat affect ED Provider Note HISTORY OF PRESENT ILLNESS: Patient is a 59-year-old female presenting after a presumed overdose. Patient presents with EMS and police. Police had received a call from the patient's sister in [place] stating that the patient stated that she did not want to live anymore and was expressing concern. Police went to check on the patient and found her to be unresponsive and called 911. Patient is responsive only to painful stimuli. Reportedly no empty bottles around her at the home. When asked if she took anything today the patient states "I do not want to talk to you." Patient reportedly has had a very tough year socially, with having brain surgery for a mass a few months ago and her mother recently dying. Patient denies drinking any alcohol. She just states "I do not want to talk you and I want to go home." ROS: as above PHYSICAL EXAM: Constitutional: Patient appears in no acute distress. HENT: Head: Normocephalic and atraumatic. Eyes: EOMI, PERRL Mouth/Throat: Mucous membranes moist. Neck: Trachea midline. Neck supple. Musculoskeletal: No edema, tenderness or deformity noted. Skin: Warm and dry. No rash, erythema, pallor or cyanosis Psychiatric: Appropriate mood and affect for situation. Neurological: Alert. Moves all extremities spontaneously. Attempts to swing at staff. MDM: - Vitals signs showed hypertension and tachycardia. - History obtained via EMS, given patient's lethargy. History as above. - Chronic conditions affecting care: PE - Differential diagnoses include, but are not limited to: alcohol intoxication; drug intoxication; liver injury; intracranial hemorrhage; CVA - Order placed for continuous cardiac monitoring. At this time, monitor showed rate of 82 bpm with normal sinus rhythm, per my interpretation. - External medical records reviewed. - EKG image interpreted by myself showed normal sinus rhythm. Rate 92 bpm. QRS 78. No acute ischemic changes. - Laboratory workup interpreted by myself showed leukocytosis (WBC 17.28) with neutrophil predominance; normal PT/INR; stable electrolytes; negative salicylate/acetaminophen/alcohol levels - Leukocytosis likely secondary to the prednisone that the patient recently has been started on. - UA negative for infection - UDS negative - VBG negative - CT head wo contrast negative for acute intracranial pathology. - Despite multiple attempts by myself and other providers, including case management and nursing staff, the patient refused to discuss if she had overdosed on anything. She has been sleeping comfortably in bed here in the emergency department. No significant abnormalities on workup at this time. Poison control was not called, as again unclear if she even took anything. Do feel that she should be admitted medically for medical clearance for 8 hours and then reassess when she is more clinically alert. - A 302 petition was created by state police, given patient's text message threatened to end her life that she sent to her sister. I went and reevaluated the patient with behavioral health pillowcase cleaner, Ana Luisa, after patient was here in the ER for almost 3 hours. She is more alert and oriented and her equipment operator warehouse is at bedside. Patient was speaking very good Ethiopian earlier today with nursing staff, but with equipment operator warehouse at bedside she will only engage in Amharic. She was offered a formal payroll lead but stated that she wanted her equipment operator warehouse to speak. Conciliator helped translate and stated that the patient states she only took her prescribed medication last night and went to bed and she does not remember anything from this morning. She does not member sending a text message. Conciliator states that the patient says that "I am a Spiritism would never kill myself." However, patient has a very flat affect and is very withdrawn and questioning. Conciliator reports the patient has not been feeling well for the last few days. Continue to asked the patient about the text messages that she had sent her sister that worried the sister enough to call 911. However, the patient is very withdrawn and adamant that she does not remember what happened. She has no mental health diagnoses, but equipment operator warehouse does report that the patient just lost her mother a few months ago and was feeling very down. However, the past reports "she worked through it." Concerned about the story and the patient's recollection of events. I do feel she is medically clear at this point, as she is not having any abnormalities on her laboratory workup or urine drug screen. 302 was upheld by myself. Bed search was initiated. - Patient signed out to Dr. Mcdonough at time of shift change. ASSESSMENT AND PLAN: Diagnosis: altered mental status; flat affect Past Med/Surg History Problem List (Updated 01/07/25 @ 17:44 by Casi Ye MD) Flat affect (Acute) AMS (altered mental status) (Acute) Chest pain (Acute) Abnormal EKG (Acute) Abdominal pain Medical History Hypokalemia ALEXIS (obstructive sleep apnea) Community acquired pneumonia GERD (gastroesophageal reflux disease) Meningioma Dyslipidemia Pulmonary embolism Migraine headache History of pulmonary embolus (PE) Surgical History Status post hysterectomy Family History Mother Diabetes Stroke Hypertension Sister Thyroid disorder Other Dyslipidemia GERD (gastroesophageal reflux disease) Meningioma Migraine headache ALEXIS (obstructive sleep apnea) Pulmonary embolism Status post hysterectomy Social History Smoking Status: Unknown if ever smoked Second Hand Exposure: No; Do You Dip or Chew Tobacco: No; Hx Alcohol Use: No Hx Substance Use: No Preferred Language: Ethiopian Communication Ability: Effective Communication Tools: IPad Plastic Top Assembler Required: Yes Beliefs That Will Affect Care: None Current Living Situation: Family Feels Safe at Home: Yes Assistive Devices: None Allergies Allergies Allergy/AdvReac Type Severity Reaction Status Date / Time atorvastatin [From Lipitor] Allergy Unknown CAN'T Verified 01/07/25 16:01 REMEMBER iv dye Allergy Unknown CAN'T Uncoded 01/07/25 16:01 REMEMBER Home Meds Home Medications Medication Instructions Recorded Confirmed sumatriptan succinate 25 mg tablet 25 mg PO DIRECTED PRN Migraine 03/14/19 01/07/25 Headache albuterol sulfate 90 mcg/actuation 2 puff inhalation QID PRN 09/12/19 01/07/25 aerosol inhaler (Ventolin HFA) Shortness Of Breath Or Wheezing lisinopril 10 mg tablet 10 mg PO DAILY 11/02/22 01/07/25 montelukast 10 mg tablet 10 mg PO DAILY 11/02/22 01/07/25 naproxen sodium 550 mg tablet 550 mg PO BID PRN Pain 11/02/22 01/07/25 omeprazole 40 mg capsule,delayed 40 mg PO DAILYBB 11/02/22 01/07/25 release rosuvastatin 20 mg tablet 20 mg PO QAM 11/02/22 01/07/25 amoxicillin 875 mg-potassium 1 tab PO Q12H 01/07/25 01/07/25 clavulanate 125 mg tablet benzonatate 100 mg capsule 100 mg PO TID PRN Cough 01/07/25 01/07/25 famotidine 20 mg tablet 20 mg PO BID 01/07/25 01/07/25 fluticasone furoate 200 1 inh inhalation DAILY 01/07/25 01/07/25 mcg-vilanterol 25 mcg/dose inhalation powder (Breo Ellipta) ibuprofen 800 mg tablet 800 mg PO TID PAIN 01/07/25 01/07/25 latanoprostene bunod 0.024 % eye 1 drp OPB DAILY 01/07/25 01/07/25 drops (Vyzulta) metoprolol succinate 25 mg 25 mg PO DAILY 01/07/25 01/07/25 tablet,extended release 24 hr prednisone 10 mg tablet 0 mg PO DAILY 01/07/25 01/07/25 Previous Rx's Medication Instructions Recorded ondansetron 4 mg disintegrating 4 mg PO Q6H PRN nausea and 08/04/24 tablet vomiting #12 tabs Results & Data (ED) Vital Signs Vital Signs - 24 hr 01/07/25 14:15 01/07/25 14:26 01/07/25 14:40 Temperature 37.3 C Temperature Source Oral Pulse Rate 96 H 100 H Respiratory Rate 18 Respiratory Effort / Characteristics Non-Labored Spontaneous Respiratory Depth Normal Respiratory Pattern Regular Blood Pressure 174/88 H Blood Pressure Mean 116 Pulse Oximetry 96 90 Oxygen Delivery Method Room Air Room Air Sepsis Recent Fever Within 48 Hours No Sepsis New/Unexplained Change in Mental Status N/A Sepsis Action Taken by Nursing No Action Required 01/07/25 14:56 01/07/25 15:02 01/07/25 15:26 Temperature Temperature Source Pulse Rate 92 H 91 H 82 Respiratory Rate 18 20 16 Respiratory Effort / Characteristics Respiratory Depth Respiratory Pattern Blood Pressure 128/67 122/75 128/77 Blood Pressure Mean 87 90 94 Pulse Oximetry 90 90 92 Oxygen Delivery Method Sepsis Recent Fever Within 48 Hours Sepsis New/Unexplained Change in Mental Status Sepsis Action Taken by Nursing 01/07/25 15:32 01/07/25 16:02 01/07/25 17:05 Temperature Temperature Source Pulse Rate 82 83 84 Respiratory Rate 16 16 16 Respiratory Effort / Characteristics Respiratory Depth Respiratory Pattern Blood Pressure 128/77 136/76 161/93 H Blood Pressure Mean 94 96 115 Pulse Oximetry 93 92 97 Oxygen Delivery Method Sepsis Recent Fever Within 48 Hours Sepsis New/Unexplained Change in Mental Status Sepsis Action Taken by Nursing 01/07/25 17:29 Temperature Temperature Source Pulse Rate Respiratory Rate Respiratory Effort / Characteristics Respiratory Depth Respiratory Pattern Blood Pressure Blood Pressure Mean Pulse Oximetry Oxygen Delivery Method Room Air Sepsis Recent Fever Within 48 Hours Sepsis New/Unexplained Change in Mental Status Sepsis Action Taken by Nursing Laboratory Data 01/07/25 14:17 01/07/25 14:17 Lab Results 01/07/25 01/07/25 01/07/25 Range/Units 14:14 14:17 14:29 WBC 17.28 H (4.8-10.8) K/ul RBC 4.60 (4.20-5.40) M/uL Hgb 13.5 (12.0-16.0) g/dl Hct 41.6 (37.0-47.0) % MCV 90.4 (80.0-100.0) fL MCH 29.3 (25.0-34.0) pg MCHC 32.5 (32.0-36.0) g/dL RDW Std Deviation 45.2 (36.4-46.3) fL RDW Coeff of Sharon 13.8 (11.5-14.5) % Plt Count 332 (130-400) K/uL MPV 9.0 L (9.4-12.4) fL Immature Gran % (Auto) 0.9 % Neut % (Auto) 88.2 % Lymph % (Auto) 7.7 % Sac % (Auto) 2.9 % Eos % (Auto) 0.1 % Baso % (Auto) 0.2 % Neut # (Auto) 15.25 H (1.40-6.50) K/uL Lymph # (Auto) 1.33 (1.20-3.40) K/uL Sac # (Auto) 0.50 (0.11-0.59) K/uL Eos # (Auto) 0.01 (0.00-0.50) K/uL Baso # (Auto) 0.03 (0.00-0.20) K/uL Immature Gran # (Auto) 0.16 (0.01-0.20) K/uL PT 10.1 (9.0-12.0) Seconds INR 0.9 (0.9-1.1) VBG pH (7.36-7.41) VBG pCO2 (38-50) mmHg VBG pO2 mmHg VBG HCO3 mmol/L VBG O2 Saturation % VBG Base Excess mEq/L Sodium 138 (136-145) mmol/L Potassium 4.2 (3.5-5.1) mmol/L Chloride 103 (98-107) mmol/L Carbon Dioxide 26 (21-32) mmol/L Anion Gap 9 (3-11) BUN 14 (6-23) mg/dl Creatinine 0.70 (0.6-1.2) mg/dl Est Cr Clr Drug Dosing 92.8 ml/min eGFR 99.57 BUN/Creatinine Ratio 20.0 (10-20) Glucose 148 H (70-99(Fasting)) mg/dl POC Glucose 137 H (70-99) mg/dl Calcium 9.5 (8.6-10.3) mg/dl Magnesium 2.2 (1.7-2.4) mg/dl Total Bilirubin 0.3 (0.2-1.0) mg/dl AST 24 (13-39) U/L ALT 36 (7-52) U/L Alkaline Phosphatase 119 H (34-104) U/L Total Protein 7.2 (6.0-8.3) gm/dl Albumin 4.3 (3.4-5.0) gm/dl Globulin 2.9 (2.5-4.0) gm/dl Albumin/Globulin Ratio 1.5 (0.9-2) Lipase 22 (11-82) U/L Urine Color Yellow Urine Appearance Clear (Clear) Urine pH 8.0 H (4.5-7.5) Ur Specific [place] 1.009 (1.000-1.030) Urine Protein Negative (Negative) Urine Glucose (UA) Negative (Negative) Urine Ketones Negative (Negative) Urine Blood Negative (Negative) Urine Nitrite Negative (Negative) Urine Bilirubin Negative (Negative) Urine Urobilinogen Negative (Negative) Ur Leukocyte Esterase Trace H (Negative) Urine WBC (Auto) 0-5 (0-5) /hpf Urine RBC (Auto) 0-2 (0-2) /hpf U Hyaline Cast (Auto) 0-2 (0-2) /lpf U Epithel Cells (Auto) 3-5 H (0-2) /hpf Urine Bacteria (Auto) None Seen (None Seen) Urine Comment Salicylates < 3.0 L (3.0-30) mg/dl Urine Opiates Screen Neg (Neg) Ur Methadone, Qual Neg (Neg) Urine Fentanyl Screen Neg (Neg) Acetaminophen < 3 L (10-30) ug/ml Urine Barbiturates Neg (Neg) Ur Phencyclidine (PCP) Neg (Neg) U Amphetamin/Meth Scrn Neg (Neg) MDMA (Ecstasy) Screen Neg (Neg) U Benzodiazepines Scrn Neg (Neg) Ur Cocaine Metabolite Neg (Neg) U Marijuana (THC) Screen Neg (Neg) Ethyl Alcohol mg/dL < 10.0 (<10.0) mg/dl 01/07/25 Range/Units 14:30 WBC (4.8-10.8) K/ul RBC (4.20-5.40) M/uL Hgb (12.0-16.0) g/dl Hct (37.0-47.0) % MCV (80.0-100.0) fL MCH (25.0-34.0) pg MCHC (32.0-36.0) g/dL RDW Std Deviation (36.4-46.3) fL RDW Coeff of Sharon (11.5-14.5) % Plt Count (130-400) K/uL MPV (9.4-12.4) fL Immature Gran % (Auto) % Neut % (Auto) % Lymph % (Auto) % Sac % (Auto) % Eos % (Auto) % Baso % (Auto) % Neut # (Auto) (1.40-6.50) K/uL Lymph # (Auto) (1.20-3.40) K/uL Sac # (Auto) (0.11-0.59) K/uL Eos # (Auto) (0.00-0.50) K/uL Baso # (Auto) (0.00-0.20) K/uL Immature Gran # (Auto) (0.01-0.20) K/uL PT (9.0-12.0) Seconds INR (0.9-1.1) VBG pH 7.43 H (7.36-7.41) VBG pCO2 40 (38-50) mmHg VBG pO2 67 mmHg VBG HCO3 27 mmol/L VBG O2 Saturation 95.5 % VBG Base Excess 2.0 mEq/L Sodium (136-145) mmol/L Potassium (3.5-5.1) mmol/L Chloride (98-107) mmol/L Carbon Dioxide (21-32) mmol/L Anion Gap (3-11) BUN (6-23) mg/dl Creatinine (0.6-1.2) mg/dl Est Cr Clr Drug Dosing ml/min eGFR BUN/Creatinine Ratio (10-20) Glucose (70-99(Fasting)) mg/dl POC Glucose (70-99) mg/dl Calcium (8.6-10.3) mg/dl Magnesium (1.7-2.4) mg/dl Total Bilirubin (0.2-1.0) mg/dl AST (13-39) U/L ALT (7-52) U/L Alkaline Phosphatase (34-104) U/L Total Protein (6.0-8.3) gm/dl Albumin (3.4-5.0) gm/dl Globulin (2.5-4.0) gm/dl Albumin/Globulin Ratio (0.9-2) Lipase (11-82) U/L Urine Color Urine Appearance (Clear) Urine pH (4.5-7.5) Ur Specific [place] (1.000-1.030) Urine Protein (Negative) Urine Glucose (UA) (Negative) Urine Ketones (Negative) Urine Blood (Negative) Urine Nitrite (Negative) Urine Bilirubin (Negative) Urine Urobilinogen (Negative) Ur Leukocyte Esterase (Negative) Urine WBC (Auto) (0-5) /hpf Urine RBC (Auto) (0-2) /hpf U Hyaline Cast (Auto) (0-2) /lpf U Epithel Cells (Auto) (0-2) /hpf Urine Bacteria (Auto) (None Seen) Urine Comment Salicylates (3.0-30) mg/dl Urine Opiates Screen (Neg) Ur Methadone, Qual (Neg) Urine Fentanyl Screen (Neg) Acetaminophen (10-30) ug/ml Urine Barbiturates (Neg) Ur Phencyclidine (PCP) (Neg) U Amphetamin/Meth Scrn (Neg) MDMA (Ecstasy) Screen (Neg) U Benzodiazepines Scrn (Neg) Ur Cocaine Metabolite (Neg) U Marijuana (THC) Screen (Neg) Ethyl Alcohol mg/dL (<10.0) mg/dl Imaging Data Radiologist's Impression: Head CT 01/07/25 15:09 CT head without contrast History: Altered mental status Comparison: None Technique: Using multidetector thin collimation helical acquisition technique, axial, coronal and sagittal CT images from the skull base to the vertex were obtained without intravenous contrast. Dose reduction techniques were achieved by using automatic exposure control and/or adjustment of mA and/or kV according to patient size and/or use of iterative reconstruction technique. Findings: No intracranial hemorrhage, mass-effect, or midline shift. The ventricles are proportionate to the cerebral sulci. The dawkins to white matter differentiation of the cerebral hemispheres is preserved. The basal cisterns are patent. The visualized paranasal sinuses are clear. Mastoid air cells are clear. Impression: No acute intracranial pathology. Electronically signed by Raul Marquez 01-07-2025 3:35 PM Discharge Plan Visit Data Chief Complaint: Overdose (Intentional) Stated Complaint: OVERDOSE/MENTAL HEALTH ED Provider: Casi Ye Discharge Problem: AMS (altered mental status), Flat affect Patient Disposition: Still a Patient Condition: Fair Forms Stand Alone Forms: [facility], Suicide Prevention Resources Prescriptions Prescriptions: No Action sumatriptan succinate 25 mg tablet 25 mg PO DIRECTED PRN (Reason: Migraine Headache) albuterol sulfate [Ventolin HFA] 90 mcg/actuation HFA aerosol inhaler 2 puff INHALATION QID PRN (Reason: Shortness Of Breath Or Wheezing) omeprazole 40 mg capsule,delayed release(DR/EC) 40 mg PO DAILYBB naproxen sodium 550 mg tablet 550 mg PO BID PRN (Reason: Pain) lisinopril 10 mg tablet 10 mg PO DAILY montelukast 10 mg tablet 10 mg PO DAILY rosuvastatin 20 mg tablet 20 mg PO QAM ondansetron 4 mg tablet,disintegrating 4 mg PO Q6H PRN (Reason: nausea and vomiting) Qty: 12 0RF prednisone 10 mg tablet 0 mg PO DAILY Rx Instructions: STARTED 12/28/24 FOR 15 DAYS, 50 MG X 3 DAY, 40 MG X 3 DAYS, 30 MG X 3 DAYS, 20 MG X 3 DAYS, 10 MG X 3 DAYS ibuprofen 800 mg tablet 800 mg PO TID Rx Instructions: TAKE WITH FOOD famotidine 20 mg tablet 20 mg PO BID benzonatate 100 mg capsule 100 mg PO TID PRN (Reason: Cough) metoprolol succinate 25 mg tablet extended release 24 hr 25 mg PO DAILY amoxicillin-pot clavulanate 875-125 mg tablet 1 tab PO Q12H Rx Instructions: STARTED 01/02/25 FOR 10 DAYS. fluticasone furoate-vilanterol [Breo Ellipta] 200-25 mcg/dose blister with device 1 inh INHALATION DAILY Vyzulta 0.024 % drops 1 drp OPB DAILY Referrals Referrals: Patrizia Lewis PA-C [Primary Care Provider] -
[2025-01-07 14:33] LABS: Basophils # (auto) 0.03 K/uL (0.00-0.20); Basophils % (auto) 0.2 %; Eosinophils # (auto) 0.01 K/uL (0.00-0.50); Eosinophils % (auto) 0.1 %; Hematocrit (blood only) 41.6 % (37.0-47.0); Hemoglobin 13.5 g/dl (12.0-16.0); Immature Granulocytes # (auto) 0.16 K/uL (0.01-0.20); Immature Granulocytes % (auto) 0.9 %; Lymphocytes # (auto) 1.33 K/uL (1.20-3.40); Lymphocytes % (auto) 7.7 %; Mean Corpuscular Hemoglobin 29.3 pg (25.0-34.0); Mean Corpuscular Hgb Conc 32.5 g/dL (32.0-36.0); Mean Corpuscular Volume 90.4 fL (80.0-100.0); Monocytes % (auto) 2.9 %; Neutrophils # (auto) 15.25 K/uL (1.40-6.50); Neutrophils % (auto) 88.2 %; Platelet Count 332 K/uL (130-400); RDW Coefficient of Variation 13.8 % (11.5-14.5); RDW Standard Deviation 45.2 fL (36.4-46.3); White Blood Count 17.28 K/ul (4.8-10.8)
[2025-01-07 14:37] LABS: HCO3 VBG 27 mmol/L; Oxygen Saturation VBG 95.5 %; PCO2 VBG 40 mmHg (38-50); PO2 VBG 67 mmHg; pH VBG 7.43 (7.36-7.41)
[2025-01-07 14:48] LABS: Acetaminophen < 3 ug/ml (10-30); Salicylate < 3.0 mg/dl (3.0-30)
[2025-01-07 14:49] LABS: Albumin Globulin Ratio 1.5 (0.9-2); Albumin Level 4.3 gm/dl (3.4-5.0); Bilirubin,Total 0.3 mg/dl (0.2-1.0); Calcium 9.5 mg/dl (8.6-10.3); Creatinine Clr Calc Pharmacy 92.8 ml/min; Globulin 2.9 gm/dl (2.5-4.0); Magnesium 2.2 mg/dl (1.7-2.4); Potassium 4.2 mmol/L (3.5-5.1); Total Protein 7.2 gm/dl (6.0-8.3)
[2025-01-07 15:01] LABS: INR 0.9 (0.9-1.1); Prothrombin Time 10.1 Seconds (9.0-12.0)
[2025-01-07 15:22] LABS: Appearance Urine Clear (Clear); Bacteria Urine Automated None Seen (None Seen); Bilirubin Urine Negative (Negative); Blood Urine Negative (Negative); Cast Urine Automated 0-2 /lpf (0-2); Color Urine Yellow; Glucose Urine UA Negative (Negative); Ketones Urine Negative (Negative); Leukocyte Esterase Urine Trace (Negative); Nitrite Urine Negative (Negative); Protein Urine Negative (Negative); RBC Urine Automated 0-2 /hpf (0-2); Specific Gravity Urine 1.009 (1.000-1.030); Urobilinogen Urine Negative (Negative); WBC Urine Automated 0-5 /hpf (0-5)
--- NOTE | 2025-01-07 15:36 | CT Scan Report ---
CT head without contrast History: Altered mental status Comparison: None Technique: Using multidetector thin collimation helical acquisition technique, axial, coronal and sagittal CT images from the skull base to the vertex were obtained without intravenous contrast. Dose reduction techniques were achieved by using automatic exposure control and/or adjustment of mA and/or kV according to patient size and/or use of iterative reconstruction technique. Findings: No intracranial hemorrhage, mass-effect, or midline shift. The ventricles are proportionate to the cerebral sulci. The dawkins to white matter differentiation of the cerebral hemispheres is preserved. The basal cisterns are patent. The visualized paranasal sinuses are clear. Mastoid air cells are clear. Impression: No acute intracranial pathology. Electronically signed by Raul Maqruez 01-07-2025 3:35 PM
[2025-01-07 16:13] LABS: Amphetamines+Metham, Urine Neg (Neg); Barbiturates, Urine Neg (Neg); Benzodiazepine, Urine Neg (Neg); Cocaine, Urine Neg (Neg); Fentanyl, Urine Neg (Neg); MDMA (Ecstacy), Urine Neg (Neg); Marijuana, Urine Neg (Neg); Methadone, Urine Neg (Neg); Opiate, Urine Neg (Neg); Phencyclidine, Urine Neg (Neg)
[2025-01-07] MEDS ORDERED: ALBUTEROL HFA 8 GM INHALER INH PRN (17:50)
--- NOTE | 2025-01-07 17:53 | Emergency Department Note ---
ED Visit Note I received this patient at change of shift signout from Dr. Ye. Please see her note for initial history and physical exam. The patient is a [age]-year-old female who presented to the emergency department for mental-health evaluation. It was felt that the patient may have taken an overdose of some sort of her medication. The patient was observed in the emergency department. Ultimately she was medically cleared. At this time a bed search is underway. The patient did require a 302 admission. She has had tangential thoughts and has been very evasive. She was not felt to be a good candidate for voluntary inpatient management. I did review the patient's 302 paperwork. It was filled out by myself. I discussed the patient's condition with the emergency department mental health case management assistant. At this time bed search is currently underway. She still being evaluated by 3 S. The patient was signed out to Dr. Roberts at change of shift. Please see her note for overnight care and further disposition. .
[2025-01-07] MEDS: AMOXICILLIN/CLAVULANATE 875 MG TAB PO SCH (18:09)
[2025-01-07] MEDS: FAMOTIDINE 20 MG TAB PO SCH (21:00)
--- NOTE | 2025-01-08 05:40 | Emergency Department Note ---
ED Visit Note Date and Time: 01/08/2025 0150 Interval History: Sign out received from Dr. Mcdonough who reviewed details of the encounter. Patient was pending bed search. Summary: Patient rested comfortably overnight. Routine medications have been ordered. Disposition: Many psychiatric facilities have denied the placement of this patient because of her medical history. The bed search will resume again in the morning. She is a 302. The case was signed out to Dr. Diaz at change of shift awaiting bed placement. .
[2025-01-08] MEDS ORDERED: NON-FORMULARY MEDICATION (Omeprazole 40 mg capsule,delayed release(DR/EC)) PO SCH (06:30)
[2025-01-08] MEDS ORDERED: PANTOprazole 40 MG TAB PO SCH (06:30)
[2025-01-08] MEDS: Nursing to Pharmacy Communication SCH (06:34)
[2025-01-08] MEDS ORDERED: MAGNESIUM HYDROXIDE SUSP 30 ML UDC PO PRN (10:40)
[2025-01-08] MEDS ORDERED: SODIUM CHLORIDE 0.65% NA SOLN 45 ML (OCEAN) PRN (10:40)
[2025-01-08] MEDS ORDERED: hydrOXYzine HCl 25 MG TAB PO PRN ×2 (10:40)
[2025-01-08] MEDS ORDERED: BISMUTH SUBSALICYLATE 262 MG CHEW PO PRN (10:40)
[2025-01-08] MEDS ORDERED: ALUMINUM/MAGNESIUM SUSP 30 ML UDC PO PRN (10:40)
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
[2025-01-08] MEDS ORDERED: BENZONATATE 100 MG CAPSULE PO PRN (13:42)
[2025-01-08] MEDS ORDERED: SUMAtriptan succinate 25 MG TAB PO PRN (13:42)
[2025-01-08] MEDS ORDERED: ONDANSETRON 4 MG OD TAB PO PRN (13:42)
[2025-01-08] MEDS ORDERED: NAPROXEN 250 MG TAB PO PRN (14:07)
[2025-01-08] MEDS: lisinopril 10 MG TAB PO SCH (15:29)
[2025-01-08] MEDS: METOPROLOL SUCC 25MG EXT REL TAB PO SCH (15:29)
[2025-01-08] MEDS: ROSUVASTATIN CALCIUM 20 MG TAB PO SCH (15:30)
[2025-01-08] MEDS: predniSONE 10 MG TABLET PO SCH (15:30)
[2025-01-08] MEDS: PANTOprazole 40 MG TAB PO SCH (15:30)
[2025-01-08] MEDS: AMOXICILLIN/CLAVULANATE 875 MG TAB PO SCH (17:02)
[2025-01-08] MEDS: FAMOTIDINE 20 MG TAB PO SCH (21:48)
[2025-01-08] MEDS: ALBUTEROL HFA 8 GM INHALER INH SCH (21:48)
[2025-01-08] MEDS: FLUTICASONE/VILANTEROL 200/25MCG 14 PUFFS/INHALER INH SCH (21:54)
[2025-01-09] MEDS: lisinopril 10 MG TAB PO SCH (08:54)
[2025-01-09] MEDS: MONTELUKAST SODIUM 10 MG TABLET PO SCH (08:54)
[2025-01-09] MEDS: predniSONE 10 MG TABLET PO SCH (08:54)
[2025-01-09] MEDS: PANTOprazole 40 MG TAB PO SCH (08:55)
[2025-01-09] MEDS: METOPROLOL SUCC 25MG EXT REL TAB PO SCH (08:55)
[2025-01-09] MEDS: ROSUVASTATIN CALCIUM 20 MG TAB PO SCH (10:49)
--- NOTE | 2025-01-09 12:57 | Psychiatric Progress Note ---
Date of Service January 09, 2025 Impression / Recommendations Impression MIKEY ARNOLD is a 59-year-old woman who currently lives in [place] alone, has no significant psychiatric history, two benign brain tumors (meningiomas) for which she receives radiation at [place] and oncologist at [facility], COPD, and recent respiratory infection for which she is on prednisone and was admitted on 01/08/25 08:26 on a 302 involuntary commitment for suicidal statements and concern for possible suicide attempt. 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 I wonder also if some of her difficulty speaking to her text message and likely minimization may reflect shame or self-guilt based on the role her strong islam beliefs may play in how she conceptualizes suicide. The text message she sent to her sisters is very concerning and warrants ongoing inpatient treatment to monitor for emergence of symptoms and ensure safety and stabilization. It does not seem that she took an overdose based on lack of pills/items found at her home by police, normal UDS, normal QTc so remains unclear why she was only responding to painful stimuli and why her memory regarding last evening is sparse. Prednisone can certainly lead to mood changes but typically would not impact memory or cause dizziness as she described. No neurological signs or lasting impairment to suggest structural sequelae from her brain tumors or need for additionally brain imaging. A: Continues to report subjectively positive mood and engaging appropriately with peers and staff, sleeping well, reality-based. Her response to the text messages she sent, when we reviewed the screenshot of this, seemed somewhat atypical in terms of her lack of affect but she asserts this is because she was never suicidal in her mind and loves her life. She is agreeable to therapy and I think this would be beneficial if her recent grief and stress from family conflict is presenting as culturally bound syndrome for which processing over time will be beneficial. She remains opposed to any medication trials, and this seems appropriate as there are no clear symptoms for which medication is identified as necessary at this time. MNPR given recent respiratory infection Overall, I spent a total of 50 minutes on this case including meeting with the patient, reviewing the chart, nursing report, multidisciplinary team meeting, orders, and documentation. (1) Suicidal ideations: (2) Ataque de nervios: (3) Unresponsiveness: Plan 01/09/2025: -SW to look into options for therapy -Continue group attendance and treatment plan -encouraging her to consider family involvement or other supports 01/08/2025: The patient was admitted to the [facility] ([facility] health unit) on q15 min checks (behavioral with suicide precautions) for safety. The patient will participate in group, recreational, and milieu therapies and will be offered additional individual and family sessions as clinically appropriate. -Continue prior to admission medications (reviewed and confirmed these with her) -Consider outpatient therapy if she becomes willing for this given multiple psychosocial stressors -Encourage ROIs for family and [facility] -Provided with Lithuanian language version of PHQ-9 and CHRIS-7 Inventory Assets Strengths: supportive relationships, islam Needs: safety and stabilization, medication adjustment, additional coping skills, increased outpatient services Suicide Risk Level Suicide Risk Level: Moderate (q15 min suicide checks) (denying SI currently but concerning statements and behaviors prior to admission, feels able to ask for support if needed) Suicide Risk Level Comments: Risk Factors Assessment Male: No : No Do You Have Access To A Gun?: No Health Problems: Yes Mental Health Diagnoses: No Substance Use Disorders: No Previous Attempt: No Family History of Suicide: No Previous Psychiatric Hospitalization: No Hopelessness: No Protective Factors Assessment Zoroastrian Beliefs: Yes : No Responsible for Young Children: No Employed: Yes Stable Relationships: Yes Supportive Family: Yes Interval History Identifying Information MIKEY ARNOLD is a 59-year-old woman who currently lives in [place] alone, has no significant psychiatric history, two benign brain tumors for which she receives radiation at [place] and oncologist at [facility], COPD, and recent respiratory infection for which she is on prednisone and was admitted on 01/08/25 08:26 on a 302 involuntary commitment for suicidal statements and concern for possible suicide attempt. Chief Complaint "Fine". Review of Systems Sleep Information Total Hours of Sleep: 7.5 Meal Information Percent Meal Consumed - Breakfast: 100 Percent Meal Consumed - Lunch: 50 Percent Meal Consumed - Dinner: 50 Subjective Subjective Patient was seen & assessed using phone baggage porter head and interval progress reviewed with treatment team. Reporting mood as positive and 10/10. Slept well overnight. PHQ-9 score of 0, CHRIS-7 score of 0. Reports her mood is "fine". States she's been trying to interact with peers. continues to deny any stress noting "I've been calm at home and haven't been stressed and know how to deal with stress". Describes that she spends time on rastafari activities and staying busy doing work for God. Confirmed that Sandra, mentioned in the text messages, is her rastafari fruit trimmer. States she would be willing for therapy. Continues to decline any medication as she feels well. We review the text messages she sent her sister. She doesn't know what to make of the text messages, continues to endorse no memory and attributes this to taking medication on an empty stomach. She conceptualizes this as "God knows why he brought me here", and feels confident she would never attempt suicide. 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 Reviewed that psychiatric treatment should not negatively impact her ability to work as a feed elevator worker or impact her housing in any way to my knowledge which she was reassured by. States she loves her feed elevator worker work and finds it very rewarding to help others. Physical Exam Psychiatric Orientation: alert and oriented x 3 Apperance: appropriately dressed and appropriately groomed Eye Contact: good eye contact Motor Behavior: no abnormal motor movements Speech: normal rate/rhythm/volume of speech Affect: + constricted affect (but smiles at times) Mood: no depressed mood and no anxious mood Thought Process: goal directed thought process Thought Content: reality based without delusions Suicidal Thoughts: denies suicidal thoughts, denies suicidal plan and denies suicidal intent Homicidal Thoughts: denies homicidal thoughts Hallucinations: no auditory hallucinations and no visual hallucinations Cognition: recent memory grossly intact, remote memory grossly intact, attention grossly intact and language grossly intact Estimated Intelligence: consistent with education level Insight: + limited insight Judgment: + limited judgement Vital Signs (Past 24 Hours) Last Vital Signs Temp 36.9 C 01/09/25 06:20 Pulse 101 H 01/09/25 06:21 Resp 16 01/09/25 06:20 BP 147/88 H 01/09/25 06:21 Pulse Ox 96 01/08/25 11:43 O2 Del Method Room Air 01/08/25 11:43 Results & Data ([facility]) Current Inpatient Medications Current Inpatient Medications: Current Inpatient Medications Acetaminophen (Acetaminophen 325 Mg Tab) 650 mg PO Q4H PRN PRN Reason: Headache or Minor Fever Stop: 02/07/25 10:39 Al Hydrox/Mg Hydrox/Simethicone (Aluminum/Magnesium Susp 30 Ml Udc) 30 ml PO Q4H PRN PRN Reason: GI Upset Stop: 02/07/25 10:39 Albuterol (Albuterol Hfa 8 Gm Inhaler) 2 puffs INH HS OLESYA Stop: 02/07/25 21:59 Last Admin: 01/08/25 21:48 Dose: 2 puffs Amoxicillin/Clavulanate Potassium (Amoxicillin/Clavulanate 875 Mg Tab) 1 tab PO BIDM OLESYA; Protocol Stop: 01/18/25 17:44 Last Admin: 01/09/25 08:54 Dose: 1 tab Benzonatate (Benzonatate 100 Mg Capsule) 100 mg PO TID PRN PRN Reason: Cough Stop: 02/07/25 13:41 Bismuth Subsalicylate (Bismuth Subsalicylate 262 Mg Chew) 2 tab PO Q30M PRN PRN Reason: Loose Stool/Diarrhea Stop: 02/07/25 10:39 Famotidine (Famotidine 20 Mg Tab) 20 mg PO BID OLESYA Stop: 02/07/25 20:59 Last Admin: 01/09/25 08:54 Dose: 20 mg Fluticasone/Vilanterol (Fluticasone/Vilanterol 200/25mcg 14 Puffs/Inhaler) 1 puffs INH HS OLESYA Stop: 02/07/25 21:59 Last Admin: 01/08/25 21:54 Dose: Not Given Hydroxyzine HCl (Hydroxyzine Hcl 25 Mg Tab) 50 mg PO HSZ PRN PRN Reason: Insomnia Stop: 02/07/25 10:39 Hydroxyzine HCl (Hydroxyzine Hcl 25 Mg Tab) 25 mg PO Q4H PRN PRN Reason: Anxiety Stop: 02/07/25 10:39 Lisinopril (Lisinopril 10 Mg Tab) 10 mg PO QAM OLESYA Stop: 02/08/25 08:59 Last Admin: 01/09/25 08:54 Dose: 10 mg Magnesium Hydroxide (Magnesium Hydroxide Susp 30 Ml Udc) 30 ml PO DAILY PRN PRN Reason: Constipation Stop: 02/07/25 10:39 Metoprolol Succinate (Metoprolol Succ 25mg Ext Rel Tab) 25 mg PO QAM [facility] Stop: 02/08/25 08:59 Last Admin: 01/09/25 08:55 Dose: 25 mg Miscellaneous (Latanoprostene Bunod [Vyzulta] 0.024 % Drops- Order Awaiting Action) 1 each N/A QS [facility] Stop: 02/07/25 15:59 Last Admin: 01/09/25 09:22 Dose: Not Given Montelukast Sodium (Montelukast Sodium 10 Mg Tablet) 10 mg PO DAILY [facility] Stop: 02/08/25 08:59 Last Admin: 01/09/25 08:54 Dose: 10 mg Naproxen (Naproxen 250 Mg Tab) 500 mg PO BID PRN PRN Reason: Pain Stop: 02/07/25 14:06 Ondansetron HCl (Ondansetron 4 Mg Od Tab) 4 mg PO Q6H PRN PRN Reason: nausea and vomiting Stop: 02/07/25 13:41 Pantoprazole Sodium (Pantoprazole 40 Mg Tab) 40 mg PO [facility] Stop: 02/08/25 08:59 Last Admin: 01/09/25 08:55 Dose: 40 mg Prednisone (Prednisone 10 Mg Tablet) 10 mg PO DAILY [facility] Stop: 02/08/25 08:59 Last Admin: 01/09/25 08:54 Dose: 10 mg Rosuvastatin Calcium (Rosuvastatin Calcium 20 Mg Tab) 20 mg PO [facility] Stop: 02/08/25 08:59 Last Admin: 01/09/25 10:49 Dose: 20 mg Sodium Chloride (Sodium Chloride 0.65% Na Soln 45 Ml (Keith)) 1 - 2 sprays NA PRN PRN PRN Reason: Nasal Dryness/Congestion Stop: 02/07/25 10:39 Sumatriptan Succinate (Sumatriptan Succinate 25 Mg Tab) 25 mg PO DAILY PRN PRN Reason: Migraine Headache Stop: 02/07/25 13:41 Mental Health & Subst Abuse Tx Therapist Name of Therapist: N/A Medical Assistant Secretary Name of Medical Assistant Secretary: N/A Post Discharge Appointments Primary Care Physician Name Of Family Doctor/PCP: Patrizia Hankins
[2025-01-09] MEDS: ACETAMINOPHEN 325 MG TAB PO PRN (17:40)
[2025-01-09] MEDS ORDERED: Nursing to Pharmacy Communication SCH (21:15)
[2025-01-10] MEDS: FLUTICASONE/VILANTEROL 200/25MCG 14 PUFFS/INHALER INH SCH (06:06)
--- NOTE | 2025-01-10 08:50 | Psychiatric Progress Note ---
Date of Service January 10, 2025 Impression / Recommendations Impression MIKEY ARNOLD is a 59-year-old woman who currently lives in [place] alone, has no significant psychiatric history, two benign brain tumors (meningiomas) for which she receives radiation at [place] and oncologist at [facility], COPD, and recent respiratory infection for which she is on prednisone and was admitted on 01/08/25 08:26 on a 302 involuntary commitment for suicidal statements and concern for possible suicide attempt. 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 I wonder also if some of her difficulty speaking to her text message and likely minimization may reflect shame or self-guilt based on the role her strong sikhism beliefs may play in how she conceptualizes suicide. The text message she sent to her sisters is very concerning and warrants ongoing inpatient treatment to monitor for emergence of symptoms and ensure safety and stabilization. It does not seem that she took an overdose based on lack of pills/items found at her home by police, normal UDS, normal QTc so remains unclear why she was only responding to painful stimuli and why her memory regarding last evening is sparse. Prednisone can certainly lead to mood changes but typically would not impact memory or cause dizziness as she described. No neurological signs or lasting impairment to suggest structural sequelae from her brain tumors or need for additionally brain imaging. A: Mood remains upbeat, she continues to deny SI. Plan for support meeting tomorrow and likely discharge afterwards if her symptoms remain stable. SW working on therapy referrals. MNPR given recent respiratory infection Overall, I spent a total of 30 minutes on this case including meeting with the patient, reviewing the chart, nursing report, multidisciplinary team meeting, orders, and documentation. (1) Suicidal ideations: (2) Ataque de nervios: (3) Unresponsiveness: Plan 01/10/2025: -Needs to complete her safety plan -Support meeting scheduled for tomorrow 01/09/2025: -SW to look into options for therapy -Continue group attendance and treatment plan -encouraging her to consider family involvement or other supports 01/08/2025: The patient was admitted to the [facility] ([facility] mental health unit) on q15 min checks (behavioral with suicide precautions) for safety. The patient will participate in group, recreational, and milieu therapies and will be offered additional individual and family sessions as clinically appropriate. -Continue prior to admission medications (reviewed and confirmed these with her) -Consider outpatient therapy if she becomes willing for this given multiple psychosocial stressors -Encourage ROIs for family and [facility] -Provided with Yakut language version of PHQ-9 and CHRIS-7 Inventory Assets Strengths: supportive relationships, sikhism Needs: safety and stabilization, medication adjustment, additional coping skills, increased outpatient services Suicide Risk Level Suicide Risk Level: Moderate (q15 min suicide checks) (denying SI currently but concerning statements and behaviors prior to admission, feels able to ask for support if needed) Suicide Risk Level Comments: Risk Factors Assessment Male: No : No Do You Have Access To A Gun?: No Health Problems: Yes Mental Health Diagnoses: No Substance Use Disorders: No Previous Attempt: No Family History of Suicide: No Previous Psychiatric Hospitalization: No Hopelessness: No Protective Factors Assessment Catholic Beliefs: Yes : No Responsible for Young Children: No Employed: Yes Stable Relationships: Yes Supportive Family: Yes Interval History Identifying Information MIKEY ARNOLD is a 59-year-old woman who currently lives in [place] alone, has no significant psychiatric history, two benign brain tumors for which she receives radiation at [place] and oncologist at [facility], COPD, and recent respiratory infection for which she is on prednisone and was admitted on 01/08/25 08:26 on a 302 involuntary commitment for suicidal statements and concern for possible suicide attempt. Chief Complaint "Feeling happy". Review of Systems Sleep Information Total Hours of Sleep: 6.25 Meal Information Percent Meal Consumed - Breakfast: 100 Percent Meal Consumed - Lunch: 100 Percent Meal Consumed - Dinner: 100 Subjective Subjective Patient was seen & assessed and interval progress reviewed with nursing and social work. Attending all groups. Feeling happy today. She looks forward to continuing her life in a positive way. She is agreeable to doing a support meeting with her senior formulation scientist tomorrow. She's planning to stay with her senior formulation scientist for a few days, tells me her sister in [place] is reassured by this and happy she's not going to be alone after she leaves. She's been meditating and finding this helpful. Physical Exam Psychiatric Orientation: alert and oriented x 3 Apperance: appropriately dressed and appropriately groomed Eye Contact: good eye contact Motor Behavior: no abnormal motor movements Speech: normal rate/rhythm/volume of speech Affect: euthymic affect Mood: no depressed mood and no anxious mood Thought Process: goal directed thought process Thought Content: reality based without delusions Suicidal Thoughts: denies suicidal thoughts, denies suicidal plan and denies suicidal intent Homicidal Thoughts: denies homicidal thoughts Hallucinations: no auditory hallucinations and no visual hallucinations Cognition: recent memory grossly intact, remote memory grossly intact, attention grossly intact and language grossly intact Estimated Intelligence: consistent with education level Insight: + limited insight Judgment: + fair judgement Vital Signs (Past 24 Hours) Last Vital Signs Temp 36.6 C 01/10/25 06:29 Pulse 87 01/10/25 06:30 Resp 18 01/10/25 06:29 BP 146/80 H 01/10/25 06:30 Pulse Ox 96 01/08/25 11:43 O2 Del Method Room Air 01/08/25 11:43 Results & Data ([facility]) Current Inpatient Medications Current Inpatient Medications: Current Inpatient Medications Acetaminophen (Acetaminophen 325 Mg Tab) 650 mg PO Q4H PRN PRN Reason: Headache or Minor Fever Stop: 02/07/25 10:39 Last Admin: 01/09/25 17:40 Dose: 650 mg Al Hydrox/Mg Hydrox/Simethicone (Aluminum/Magnesium Susp 30 Ml Udc) 30 ml PO Q4H PRN PRN Reason: GI Upset Stop: 02/07/25 10:39 Albuterol (Albuterol Hfa 8 Gm Inhaler) 2 puffs INH HS OLESYA Stop: 02/07/25 21:59 Last Admin: 01/09/25 21:05 Dose: 2 puffs Amoxicillin/Clavulanate Potassium (Amoxicillin/Clavulanate 875 Mg Tab) 1 tab PO BIDM OLESYA; Protocol Stop: 01/18/25 17:44 Last Admin: 01/10/25 08:38 Dose: 1 tab Benzonatate (Benzonatate 100 Mg Capsule) 100 mg PO TID PRN PRN Reason: Cough Stop: 02/07/25 13:41 Bismuth Subsalicylate (Bismuth Subsalicylate 262 Mg Chew) 2 tab PO Q30M PRN PRN Reason: Loose Stool/Diarrhea Stop: 02/07/25 10:39 Famotidine (Famotidine 20 Mg Tab) 20 mg PO BID [facility] Stop: 02/07/25 20:59 Last Admin: 01/10/25 08:36 Dose: 20 mg Fluticasone/Vilanterol (Fluticasone/Vilanterol 200/25mcg 14 Puffs/Inhaler) 1 puffs INH Q24H [facility] Stop: 02/09/25 05:59 Last Admin: 01/10/25 06:06 Dose: 1 puffs Hydroxyzine HCl (Hydroxyzine Hcl 25 Mg Tab) 50 mg PO HSZ PRN PRN Reason: Insomnia Stop: 02/07/25 10:39 Hydroxyzine HCl (Hydroxyzine Hcl 25 Mg Tab) 25 mg PO Q4H PRN PRN Reason: Anxiety Stop: 02/07/25 10:39 Lisinopril (Lisinopril 10 Mg Tab) 10 mg PO QAM [facility] Stop: 02/08/25 08:59 Last Admin: 01/10/25 08:35 Dose: 10 mg Magnesium Hydroxide (Magnesium Hydroxide Susp 30 Ml Udc) 30 ml PO DAILY PRN PRN Reason: Constipation Stop: 02/07/25 10:39 Metoprolol Succinate (Metoprolol Succ 25mg Ext Rel Tab) 25 mg PO QAM [facility] Stop: 02/08/25 08:59 Last Admin: 01/10/25 08:38 Dose: 25 mg Miscellaneous (Latanoprostene Bunod [Vyzulta] 0.024 % Drops- Order Awaiting Acti on) 1 each N/A QS [facility] Stop: 02/07/25 15:59 Last Admin: 01/10/25 08:30 Dose: Not Given Montelukast Sodium (Montelukast Sodium 10 Mg Tablet) 10 mg PO DAILY [facility] Stop: 02/08/25 08:59 Last Admin: 01/10/25 08:35 Dose: 10 mg Naproxen (Naproxen 250 Mg Tab) 500 mg PO BID PRN PRN Reason: Pain Stop: 02/07/25 14:06 Ondansetron HCl (Ondansetron 4 Mg Od Tab) 4 mg PO Q6H PRN PRN Reason: nausea and vomiting Stop: 02/07/25 13:41 Pantoprazole Sodium (Pantoprazole 40 Mg Tab) 40 mg PO QAM OLES[facility] Stop: 02/08/25 08:59 Last Admin: 01/10/25 08:38 Dose: 40 mg Prednisone (Prednisone 10 Mg Tablet) 10 mg PO DAILY OLES[facility] Stop: 02/08/25 08:59 Last Admin: 01/10/25 08:35 Dose: 10 mg Rosuvastatin Calcium (Rosuvastatin Calcium 20 Mg Tab) 20 mg PO QAM OLESYA Stop: 02/08/25 08:59 Last Admin: 01/10/25 08:35 Dose: 20 mg Sodium Chloride (Sodium Chloride 0.65% Na Soln 45 Ml (Mar-Mac)) 1 - 2 sprays NA PRN PRN PRN Reason: Nasal Dryness/Congestion Stop: 02/07/25 10:39 Sumatriptan Succinate (Sumatriptan Succinate 25 Mg Tab) 25 mg PO DAILY PRN PRN Reason: Migraine Headache Stop: 02/07/25 13:41 Mental Health & Subst Abuse Tx Therapist Name of Therapist: N/A Greens Laborer Name of Greens Laborer: N/A Post Discharge Appointments Primary Care Physician Name Of Family Doctor/PCP: [facility]
--- NOTE | 2025-01-10 15:21 | Electrocardiogram Report ---
Test Reason : Blood Pressure : */* mmHG Vent. Rate : 92 BPM Atrial Rate : 92 BPM P-R Int : 128 ms QRS Dur : 78 ms QT Int : 358 ms P-R-T Axes : 50 40 53 degrees QTcB Int : 442 ms Normal sinus rhythm Normal ECG When compared with ECG of 04-Aug-2024 11:11, No significant change was found Confirmed by Juma Perrin ([id number]) on 01/10/2025 3:20:52 PM Referred By: Confirmed By: Juma Perrin
[2025-01-11 06:25] VITALS: BP 131/83; PULSE 83; RESP 16; TEMP 98; O2SAT 97
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
== END 2025-01-11 12:46 | disposition home or self-care (01) | DRG 881 ==
LOC: ED 14:07 → 3S 01-08 08:26